=== PATIENT | female | born 1950 | race Caucasian/White ===

== ENCOUNTER → 2016-05-03 | Outpatient (CLI) | payer OTHER ==
[~2016-05-03] MED LIST: ALBU1AER9 INH; ASPI-232 PO; COEN100C11 PO; HYZ/50125 PO; SYN50 PO; VITA100C4 PO; VTMD1000 PO
--- NOTE | 2016-05-04 08:01 | MAMMOGRAPHY REPORT ---
BILATERAL DIGITAL SCREENING MAMMOGRAM TOMOSYNTHESIS WITH CAD: 05/03/2016 CLINICAL HISTORY: Routine screening examination. TECHNIQUE: Bilateral breast tomosynthesis in addition to standard 2D mammography was performed. Curr ent study was also evaluated with a Computer Aided Detection (CAD) system. COMPARISON: Comparison is made to exams dated: 05/01/2015 mammogram, 04/29/2014 mammogram, 04/11/2012 ma mmogram, and 10/27/2010 mammogram - [facility]. BREAST COMPOSITION: There are scattered areas of fibroglandular density in both breasts. FINDINGS: There is focal architectural distortion in the upper outer anterior left breast. Review of the electronic medical record at our institution does not demonstrate record of prior left breast surgery. No linear scar marker overlies the left breast to suggest previous surgery. Further eval uation with targeted ultrasound and possible additional mammographic views is recommended. There is a possible cluster of microcalcifications in the lateral right breast, best seen on the CC view, fo r which additional spot magnification views are recommended. No other suspicious mass, architectural distortion or cluster of microcalcifications is seen bilater ally. IMPRESSION: ACR BI-RADS CATEGORY 0: INCOMPLETE EVALUATION: NEED ADDITIONAL IMAGING EVALUATION The left lateral architectural distortion and possible clustered microcalcifications in the right la teral breast need additional imaging evaluation. The patient will be called to schedule an appointment. Approximately 10% of breast cancers are not detected with mammography. A negative mammographic repor t should not delay biopsy if a clinically suggestive mass is present. Renetta Sousa M.D. ay/:05/03/2016 17:05:37 Awning Finisher: Swathi RENEE(Carole)(Mery), [facility] letter sent: Addl Imaging 0 BI-RADS Code: ACR BI-RADS Category 0: Incomplete Evaluation: Need Additional Imaging Evaluation
== END | disposition home or self-care (01) ==
LOC: C.MAMM 10:18
PROVIDERS: ATTEND Student in an Organized Health Care Education/Training Program
DX: Z12.31 Encounter for screening mammogram for malignant neoplasm of breast (principal); N64.89 Other specified disorders of breast

== ENCOUNTER → 2016-05-19 | Outpatient (CLI) | payer OTHER ==
--- NOTE | 2016-05-19 15:02 | MAMMOGRAPHY REPORT ---
UNILATERAL RIGHT DIGITAL DIAGNOSTIC MAMMOGRAM AND TARGETED LEFT ULTRASOUND: 05/19/2016 CLINICAL HISTORY: 65-year-old woman called back from screening mammography for possible grouped micr ocalcifications in the right upper outer quadrant, and left lateral architectural distortion. After further discussion with the patient, she reports 2 prior surgeries within the left breast. Skin sc ars are evident in the 9:00 periareolar left breast, and also in the 1:00 to 2:[address] TECHNIQUE: Spot magnification right CC and ML views were obtained. COMPARISON: Comparison is made to exams dated: 05/03/2016 mammogram, 05/01/2015 mammogram, 04/29/2014 neo mogram, 04/11/2012 mammogram, 10/27/2010 mammogram, and 04/29/2009 mammogram - [facility]. BREAST COMPOSITION: There are scattered areas of fibroglandular density in the right breast. FINDINGS: There are 2 round microcalcifications in the approximate 9:00 middle one third of the righ t breast, 7 cm from the nipple. There are possibly a few additional very faint punctate microcalcif ications near those 2 round microcalcifications. No obvious associated mass or architectural distor tion. When comparing back to prior full-field mammograms, at least one of these microcalcifications has been present back to 2010 and 2 were likely present back to 2012. They most likely represent b enign fibrocystic changes, however, a short interval follow-up diagnostic mammogram is recommended t o ensure stability in 6 months. After discussion with the patient and learning that she has had 2 prior surgeries within the left br east, additional targeted ultrasound was performed along the scar in the 1:00 left breast, 2 cm from the nipple, which was thought to correlate well with the architectural distortion seen mammographic ally. There is linear hypoechoic tissue in the 1 to 2:00 left breast, 2 cm from the nipple, deep to the surgical scar likely representing the distortion seen mammographically. IMPRESSION: ACR-BI-RADS CATEGORY 3: PROBABLY BENIGN, TARGETED ULTRASOUND ACR-BI-RADS CATEGORY 3: UT OBABLY BENIGN 1. The architectural distortion in the lateral left breast is postsurgical in nature, given that a skin scar is evident in the 1:00 to 2:00 axis of the left breast. No further follow-up is needed at this time. 2. There are approximately 2 round microcalcifications and possibly a few smaller faint punctate mi crocalcifications within a 5 mm grouping in the 9:00 middle to posterior right breast. Some of thes e microcalcifications were present dating back to 2012 and the may represent benign fibrocystic anguiano ges. However, a short interval follow-up right diagnostic mammogram including spot magnification vi ews is made to ensure stability in 6 months. These results and recommendations were discussed with the patient at the time of the exam. She tent atively scheduled a follow-up appointment prior to leaving our department. Approximately 10% of breast cancers are not detected with mammography. A negative mammographic repor t should not delay biopsy if a clinically suggestive mass is present. Renetta Sousa M.D. ay/:05/19/2016 14:53:46 Outside Collector: Ericka RENEE(R)(M), [facility] letter sent: Follow Up Recommended 3 BI-RADS Code: ACR-BI-RADS Category 3: Probably Benign Ultrasound BI-RADS: ACR-BI-RADS Category 3: P robably Benign
--- NOTE | 2016-05-25 13:55 | CODING QUERY NO DIAGNOSIS ---
TREATMENT RENDERED WITHOUT A DIAGNOSIS Dr. Torres, To promote full compliance with coding requirements relating to patient care, physician participation is requested in all cases of show host or hostess uncertainty. Please assist us with providing a diagnosis/symptom for the test(s) below: A diagnosis/symptom was not documented on your Order. A valid diagnosis/symptom is required to bill all insurances. Please remember that we are unable to code a diagnosis of rule out, probable, possible, questionable, or suspected. Tests that require a diagnosis: * UNI RT CALL BACK TOMOSYNTHESIS DIAGNOSIS: * DIAG RT CALL BACK W/O CAD DIAGNOSIS: * ULTRASOUND BREAST LIMITED DIAGNOSIS: DATE OF SERVICE: 05/19/16 Provider Signature: Date: Thank you [facility] Information Management Once completed, please kindly fax back to [phone] For questions please call [phone]
== END | disposition home or self-care (01) ==
LOC: C.MAMM 12:18
PROVIDERS: ATTEND Student in an Organized Health Care Education/Training Program
DX: R92.8 Other abnormal and inconclusive findings on diagnostic imaging of breast (principal); L90.5 Scar conditions and fibrosis of skin; R92.0 Mammographic microcalcification found on diagnostic imaging of breast; N64.89 Other specified disorders of breast

== ENCOUNTER → 2016-11-19 | Outpatient (CLI) | payer OTHER ==
--- NOTE | 2016-11-19 12:44 | MAMMOGRAPHY REPORT ---
UNILATERAL RIGHT DIGITAL DIAGNOSTIC MAMMOGRAM TOMOSYNTHESIS WITH CAD: 11/19/2016 CLINICAL HISTORY: 6 Month Follow-up Right. TECHNIQUE: Breast tomosynthesis in addition to standard 2D mammography was performed. Current study was also evaluated with a Computer Aided Detection (CAD) system. Right CC and MLO 2-D and tomosynthe sis images and spot magnification right cc and ML views were obtained. COMPARISON: Comparison is made to exams dated: 05/19/2016 mammogram, 05/19/2016 ultrasound, 05/03/2016 m ammogram, 05/01/2015 mammogram, 04/29/2014 mammogram, and 04/26/2013 mammogram - [facility]. BREAST COMPOSITION: There are scattered areas of fibroglandular density in the right breast. FINDINGS: Spot magnification views of the right breast demonstrate a small 5 mm group of faint puncta te calcifications in the right lateral breast at approximately 9:00. The calcifications are stable o n spot magnification views dated 05/19/2016. The calcifications are likely also stable dating back to the 2014 and 2013 exam although it is difficult to make an accurate comparison due to differences in mammographic technique. Given the probable long-term stability, the calcifications are probably sakina ign. The remainder of the right breast is stable compared to prior exams, without suspicious masses, calcifications, or areas of architectural distortion noted. IMPRESSION: ACR-BI-RADS CATEGORY 3: PROBABLY BENIGN Grouped calcifications in the right 9:00 breast are likely stable dating back to the 2013 exam and ar e therefore probably benign. Recommend bilateral diagnostic tomosynthesis mammograms in 6 months, to confirm one-year stability of the calcifications on spot magnification views and for routine mammogr aphy of the left breast. The patient has been verbally notified of the results. Approximately 10% of breast cancers are not detected with mammography. A negative mammographic report should not delay biopsy if a clinically suggestive mass is present. Alicja Talbot M.D. /:11/19/2016 11:07:48 Mixing Picker Tender: Renata RENEE(Carole)(M), [facility] letter sent: Follow Up Recommended 3 BI-RADS Code: ACR-BI-RADS Category 3: Probably Benign
== END | disposition home or self-care (01) ==
LOC: C.MAMM 10:41
PROVIDERS: ATTEND Student in an Organized Health Care Education/Training Program
DX: R92.1 Mammographic calcification found on diagnostic imaging of breast (principal)

== ENCOUNTER → 2017-05-25 | Outpatient (CLI) | payer OTHER ==
--- NOTE | 2017-05-26 07:51 | MAMMOGRAPHY REPORT ---
BILATERAL DIGITAL DIAGNOSTIC MAMMOGRAM TOMOSYNTHESIS WITH CAD: 05/25/2017 CLINICAL HISTORY: 66-year-old woman presents at time of annual exam and also close follow-up of a adrianna uping of microcalcifications in the lateral right breast. TECHNIQUE: Bilateral breast tomosynthesis in addition to standard 2D mammography was performed. Spot magnification right CC and MLO views were also obtained. Current study was also evaluated with a [employer] Aided Detection (CAD) system. COMPARISON: Comparison is made to exams dated: 11/19/2016 mammogram, 05/19/2016 mammogram, 05/19/2016 u ltrasound, 05/03/2016 mammogram, 04/29/2014 mammogram, and 04/26/2013 mammogram - [facility] nt. BREAST COMPOSITION: There are scattered areas of fibroglandular density in both breasts. FINDINGS: There is expected architectural distortion in the upper outer anterior left breast, and an area of prior surgery. There are a few benign-appearing calcifications in the left breast, but no n ew suspicious masses, calcifications, unexpected architectural distortion or asymmetries are identifi ed. The right breast glandular pattern is similar to prior mammograms. No new suspicious masses, asymmet david, areas of distortion or new calcifications are seen. The spot magnification views of the right breast demonstrate a small faint grouping of punctate and amorphous microcalcifications measuring ernesto roximately 5 mm in maximum dimension. Although the microcalcifications do not appear significantly c hanged dating back to spot magnification views from 05/19/2016, they may be minimally increased compar ing back to more remote prior mammograms dating back to 2012 and remain indeterminate. Definitive ch aracterization with a stereotactic guided biopsy is recommended. IMPRESSION: ACR BI-RADS CATEGORY 4: SUSPICIOUS 1. The 5 mm grouping of faint punctate and amorphous microcalcifications in the lateral approximate 8:00 right breast may be minimally increased comparing back to prior exams and remain indeterminate. Definitive characterization with a stereotactic guided biopsy is recommended. 2. Stable mammographic appearance of the left breast, without mammographic evidence of malignancy. Recommend follow-up in 1 year. These results and recommendations were discussed with the patient at the time of the exam. She tenta tively scheduled the right breast biopsy prior to leaving our department. Approximately 10% of breast cancers are not detected with mammography. A negative mammographic report should not delay biopsy if a clinically suggestive mass is present. Renetta Sousa M.D. ay/:05/25/2017 17:06:27 Frozen Yogurt Maker: Ericka Matthews, [facility] letter sent: Abnormal 4/5 BI-RADS Code: ACR BI-RADS Category 4: Suspicious
== END | disposition home or self-care (01) ==
LOC: C.MAMM 13:36
PROVIDERS: ATTEND Student in an Organized Health Care Education/Training Program
DX: R92.0 Mammographic microcalcification found on diagnostic imaging of breast (principal)

== ENCOUNTER → 2017-06-02 | Outpatient (CLI) | payer OTHER ==
--- NOTE | 2017-06-02 13:17 | Discharge Instructions ---
Discharge Instructions Procedure Procedure Date: Jun 02, 2017. Reason for visit: Right Calcs. Discharge Discharge Date: Jun 02, 2017. Discharge Diagnosis: status post breast biopsy Instructions Activity Recommendations: Additional Limitations (see below) Return to School/Work: no limitations Recommended Home Diet: No Limitations Provider Instructions: ACTIVITY RECOMMENDATIONS: * No lifting, pushing, pulling or exercising the affected side for three days. RETURN TO SCHOOL/WORK: * You may return to work/school after the procedure, but do not perform any strenuous activities for 24 to 48 hours. MEDICATIONS: * Tylenol (two 325 mg) every four to six hours if needed for mild pain (if not allergic to Tylenol). DIET: * Resume previous diet. SPECIAL CARE INSTRUCTIONS: * Keep biopsy site dry for 24 hours. May shower after 24 hours, but do not soak (bathe) incision. * May remove Tegaderm (plastic patch) tomorrow AFTER showering. * Leave the steri-strips on for one week. Allow the steri-strips to fall off by themselves. If not off after one week, you may remove them. You may place a Bandaid crosswise over the strips, if desired. * Apply ice 10 minutes on and 10 minutes off as needed. * Wear a bra at bedtime to sleep more comfortably for 2-3 days. * Your referring physician should have the results after approximately 5 to 7 business days. * Call for unusual bleeding, fever, drainage, etc or if you have any questions call during normal business hours or after hours call Dr Talbot, [phone]. FOLLOW UP VISIT: Follow-up with Referring Physician as scheduled. Allergies Coded Allergies: Lisinopril (Unverified Allergy, Mild, COUGH, 01/30/16) Nalini Michel Recommendations: Call your doctor if: * Temperature above 101 degrees * Pain not relieved by pain medicine ordered * There is increased drainage or redness from any incision * You have any unanswered questions or concerns. Your Doctors Instructions noted above were prepared by provider Alicja Talbot. Patient Signature Section: Patient Instructions Signature Page Neyda Bradykatina Patient (or Guardian) Signature/Date: I have read and understand the instructions given to me by my caregivers. Caregiver/RN/Doctor Signature/Date: The above-named patient and/or guardian has received patient instructions on this date. + Original Patient Signature Page (only) stays with chart. Please make copy for patient.
--- NOTE | 2017-06-02 14:43 | MAMMOGRAPHY REPORT ---
STEREOTACTIC GUIDED BIOPSY RIGHT BREAST: 06/02/2017 CLINICAL HISTORY: Indeterminate calcifications in the right lower outer quadrant. PATIENT CONSENT: The procedure, risks, benefits, and alternatives of stereotactic biopsy with clip pl acement were discussed with the patient, and verbal and written consent was obtained. A timeout was performed immediately prior to the procedure. PROCEDURE DESCRIPTION: With stereotactic guidance, aseptic technique, and lidocaine as a local anesth etic (1% lidocaine to anesthetize the skin and 1% lidocaine with epinephrine to anesthetize the deepe r tissues), the calcifications of concern in the right lower outer quadrant were sampled multiple nicole es with a 9-gauge vacuum-assisted biopsy needle ([employer]). The path of approach was caudocranial . The specimen radiograph demonstrates calcifications to be present in the samples. A metallic emani er clip was placed at the biopsy site. This was confirmed on postprocedure mammograms. Direct press ure was applied at the biopsy site and hemostasis was readily achieved. The patient tolerated the pr ocedure without complication. She was given wound care instructions. COMPARISON: Comparison is made to exams dated: 05/25/2017 mammogram, 11/19/2016 mammogram, 05/19/2016 u ltrasound, 05/03/2016 mammogram, 05/01/2015 mammogram, and 04/29/2014 mammogram - [facility]. IMPRESSION: STEREOTACTIC GUIDED BIOPSY Stereotactic biopsy of indeterminate calcifications in the right lower outer quadrant, with clip plac ement. The patient will receive pathology results from her referring provider. Alicja Talbot M.D. /:06/02/2017 13:18:56 Cell Assembly Pinner: Ericka RICO)(M), [facility]
--- NOTE | 2017-06-02 14:43 | MAMMOGRAPHY REPORT ---
UNILATERAL RIGHT DIGITAL DIAGNOSTIC MAMMOGRAM: 06/02/2017 CLINICAL HISTORY: Status post right breast stereotactic biopsy. TECHNIQUE: Postprocedural right CC and ML views were obtained. COMPARISON: Comparison is made to exams dated: 11/19/2016 mammogram, 05/25/2017 mammogram, 05/19/2016 u ltrasound, 05/19/2016 mammogram, 05/01/2015 mammogram, and 05/03/2016 mammogram - [facility] nter. BREAST COMPOSITION: There are scattered areas of fibroglandular density in the right breast. FINDINGS: A new biopsy marker clip is seen in the right breast at approximately 9:00 status post ster eotactic biopsy of right breast calcifications. No significant postbiopsy hematoma is seen. IMPRESSION: POST PROCEDURE IMAGING FOR MARKER PLACEMENT New biopsy marker clip status post right breast stereotactic biopsy. Pathology results are pending. Approximately 10% of breast cancers are not detected with mammography. A negative mammographic report should not delay biopsy if a clinically suggestive mass is present. Alicja Talbot M.D. ah/:06/02/2017 13:35:00 Showroom Executive Director: Ericka RENEE(R)(M), [facility] BI-RADS Code: Post Procedure Imaging For Marker Placement
== END | disposition home or self-care (01) ==
LOC: C.MAMM 12:30
PROVIDERS: ATTEND Student in an Organized Health Care Education/Training Program
DX: R92.0 Mammographic microcalcification found on diagnostic imaging of breast (principal)

== ENCOUNTER 2023-04-18 19:20 | Inpatient (IN) ==
[2023-04-18 20:00] LABS: Basophils # (auto) 0.06 K/uL (0.00-0.20); Basophils % (auto) 0.7 %; Eosinophils # (auto) 0.22 K/uL (0.00-0.50); Eosinophils % (auto) 2.6 %; Hematocrit (blood only) 43.9 % (37.0-47.0); Immature Granulocytes # (auto) 0.04 K/uL (0.01-0.20); Immature Granulocytes % (auto) 0.5 %; Lymphocytes % (auto) 32.7 %; Mean Corpuscular Hemoglobin 27.1 pg (25.0-34.0); Mean Corpuscular Hgb Conc 31.9 g/dL (32.0-36.0); Mean Corpuscular Volume 84.9 fL (80.0-100.0); Mean Platelet Volume 10.6 fL (9.4-12.4); Monocytes # (auto) 0.48 K/uL (0.11-0.59); Monocytes % (auto) 5.6 %; Neutrophils # (auto) 4.96 K/uL (1.40-6.50); Neutrophils % (auto) 57.9 %; Platelet Count 227 K/uL (130-400); RDW Coefficient of Variation 13.9 % (11.5-14.5); RDW Standard Deviation 43.2 fL (36.4-46.3); Red Blood Count 5.17 M/uL (4.20-5.40); White Blood Count 8.56 K/ul (4.8-10.8)
[2023-04-18 20:18] LABS: Albumin Globulin Ratio 1.3 (0.9-2); BUN Creatinine Ratio 17.6 (10-20); Bilirubin,Total 0.4 mg/dl (0.2-1.0); Calcium 9.8 mg/dl (8.6-10.3); Creatinine Clr Calc Pharmacy 68.1 ml/min; Est GFR (African American) 72.5 ml/min; Est GFR (Non-African American) 62.6 ml/min; Globulin 3.2 gm/dl (2.5-4.0); Magnesium 2.2 mg/dl (1.7-2.4); Potassium 3.7 mmol/L (3.5-5.1); Total Protein 7.2 gm/dl (6.0-8.3)
[2023-04-18 20:25] LABS: Troponin I High Sensitivity 11.7 pg/ml (0-14)
[2023-04-18 20:29] LABS: INR 0.9 (0.9-1.1); Partial Thromboplastin Time 28 Seconds (21-31); Prothrombin Time 10.3 Seconds (9.0-12.0)
[2023-04-18 21:32] LABS: D Dimer 650 ug/L FEU (0-500)
[2023-04-18] MEDS: OPTIRAY 320 125ml IV ONE (22:35)
--- NOTE | 2023-04-18 23:52 | Emergency Department Note ---
History of Present Illness General Chief Complaint: Cardiac Assessment Stated Complaint: CARDIAC ASSESSMENT Time Seen by Provider: 04/18/23 19:30 History of Present Illness Provider Complaint: + palpitations Time: 16:00 Duration: + Now resolved Context: + occurred during rest Arrhythmia history: + atrial fibrillation; no on anti-coagulants Associated symptoms: + chest pain; no shortness of breath, no syncope, no near- syncope, no nausea, no vomiting, no anxiety, no diaphoresis or no cough Treatments prior to arrival: + calcium channel jagdish (Cardizem bolus per EMS) Home Medications Medication Instructions Recorded Confirmed Type ASPIRIN (ASPIR-81) 1 tab PO HS ##0 10/12/13 06/19/21 History Albuterol (Proair Hfa) 2 puff inhalation QID PRN W ##0 10/12/13 06/19/21 History Cholecalciferol (Vitamin D3) 1,000 intunit PO Q2D ##0 10/12/13 06/19/21 History Hctz/Losartan (Hyzaar 12.5MG/50MG) 1 tab PO DAILY #0 tabs 10/12/13 06/19/21 History Levothyroxine Sodium (Synthroid) 1 tab PO Q2D ##0 10/12/13 06/19/21 History COENZYME Q10 (UBIDECARENONE) 100 mg PO DAILY ##0 10/05/15 06/19/21 History (COQ-10) Tocopheryl Acet,Dl-Alpha (Vitamin 100 inter.unit PO Q2D ##0 10/05/15 06/19/21 History E) Allergies Allergy/AdvReac Type Severity Reaction Status Date / Time lisinopril Allergy Mild COUGH Unverified 06/19/21 09:21 Past Med/Surg History Medical History (Updated 04/19/23 @ 00:04 by Spenser Wiseman MD) Asthma Hypertension Surgical History (Updated 04/18/23 @ 23:50 by Spenser Wiseman MD) H/O: hysterectomy Social History Smoking Status: Former smoker Preferred Language: Syriac Feels Safe at Home: Yes Physical Exam 2 Vital Signs: Vital Signs - 24 hr 04/18/23 19:24 04/18/23 19:33 04/18/23 19:45 Temperature 36.8 C Temperature Source Oral Pulse Rate 69 62 Pulse Rate [Radial ] Pulse Rhythm [Radi al] Pulse Strength [Ra dial] Respiratory Rate 15 Respiratory Effort / Characteristics Non-Labored Sponta neous Respiratory Depth Normal Respiratory Patter n Regular Blood Pressure 194/99 H Blood Pressure [Le ft Arm] Blood Pressure Hansa n 130 Blood Pressure Hansa n [Left Arm] Pulse Oximetry 95 94 Oxygen Delivery Me thod Room Air Room Air Sepsis Recent Feve r Within 48 Hours No Sepsis New/Unexpla ined Change in Men enrike Status N/A Sepsis Action Take n by Nursing No Action Required 04/18/23 21:11 04/18/23 23:00 04/18/23 23:25 Temperature Temperature Source Pulse Rate 48 L Pulse Rate [Radial ] 58 L 47 L Pulse Rhythm [Radi al] Regular Pulse Strength [Ra dial] Normal Respiratory Rate 18 18 Respiratory Effort / Characteristics Non-Labored Sponta neous Non-Labored Respiratory Depth Normal Normal Respiratory Patter n Regular Regular Blood Pressure Blood Pressure [Le ft Arm] 124/69 153/72 H Blood Pressure Hansa n Blood Pressure Hansa n [Left Arm] 87 99 Pulse Oximetry 96 96 Oxygen Delivery Me thod Room Air Room Air Sepsis Recent Feve r Within 48 Hours Sepsis New/Unexpla ined Change in Men enrike Status Sepsis Action Take n by Nursing Physical Exam: Physical Exam GENERAL: oriented to person, place, and time. appears well-developed and well- nourished. HENT: Exam performed. - Head: Normocephalic and atraumatic. EYES: Conjunctivae and EOM are normal. Right eye exhibits no discharge. Left eye exhibits no discharge. No scleral icterus. NECK: Normal range of motion. Neck supple. No JVD present. CV: Normal rate, regular rhythm, normal heart sounds and intact distal pulses. There is no peripheral edema. Palpable radial pulses bue. PULM/CHEST: Effort normal and breath sounds normal. No respiratory distress. No stridor. no wheezes. no rales. ABD: The abdomen is soft. There is no tenderness. NEURO: Motor and sensation grossly intact. SKIN: Skin is warm and dry. He is not diaphoretic. PSYCH: normal mood and affect. Behavior is normal. Judgment and thought content normal. Course Course 1851: Received a call from EMS. EMS reported that the patient was having palpitations. EKG done by EMS showed a possible SVT versus atrial fibrillation. EMS reported that the patient does have a history of atrial fibrillation. Cardizem 20 mg ordered for the patient. After Cardizem was given the patient went into normal sinus rhythm. 1930: The patient was evaluated in room B12A. A complete history and physical exam was performed Cardiac monitoring: An order was placed for continuous cardiac monitoring. The monitor shows a rate of 60 with sinus rhythm interpreted by mn 0001: Vital signs stable. Patient remains in sinus rhythm throughout her emergency department stay. Patient reports no chest pain or difficulty breathing since she received Cardizem by EMS. Family is at bedside now and confirmed that the patient does not have a history of atrial fibrillation however she has a family history of atrial fibrillation, specifically her brother having atrial fibrillation. Patient's D-dimer elevated, CTA of the chest negative for PE patient's initial high-sensitivity troponin was negative but delta troponin was more than doubled at 29.1. Patient will be admitted to the [facility] for further workup for arrhythmia. Administered Medications Discontinued Medications Ioversol (Optiray 320 125ml) 117 ml IV ONCE ONE Stop: 04/18/23 22:36 Last Admin: 04/18/23 22:35 Dose: 117 ml Documented By: [facility] Medical Decision Making Laboratory Data Attestation: I reviewed the patient's lab results. 04/18/23 19:32 04/18/23 19:35 Lab Results 04/18/23 04/18/23 04/18/23 Range/Units 19:32 19:35 22:40 WBC 8.56 (4.8-10.8) K/ul RBC 5.17 (4.20-5.40) M/uL Hgb 14.0 (12.0-16.0) g/dl Hct 43.9 (37.0-47.0) % MCV 84.9 (80.0-100.0) fL MCH 27.1 (25.0-34.0) pg MCHC 31.9 L (32.0-36.0) g/dL RDW Std Deviation 43.2 (36.4-46.3) fL RDW Coeff of Nidia 13.9 (11.5-14.5) % Plt Count 227 (130-400) K/uL MPV 10.6 (9.4-12.4) fL Immature Gran % (Auto) 0.5 % Neut % (Auto) 57.9 % Lymph % (Auto) 32.7 % [place] % (Auto) 5.6 % Eos % (Auto) 2.6 % Baso % (Auto) 0.7 % Neut # (Auto) 4.96 (1.40-6.50) K/uL Lymph # (Auto) 2.80 (1.20-3.40) K/uL [place] # (Auto) 0.48 (0.11-0.59) K/uL Eos # (Auto) 0.22 (0.00-0.50) K/uL Baso # (Auto) 0.06 (0.00-0.20) K/uL Immature Gran # (Auto) 0.04 (0.01-0.20) K/uL PT 10.3 (9.0-12.0) Seconds INR 0.9 (0.9-1.1) APTT 28 (21-31) Seconds PTT Ratio 1.0 D-Dimer 650 H* (0-500) ug/L FEU Sodium 140 (136-145) mmol/L Potassium 3.7 (3.5-5.1) mmol/L Chloride 105 (98-107) mmol/L Carbon Dioxide 28 (21-32) mmol/L Anion Gap 7 (3-11) BUN 16 (6-23) mg/dl Creatinine 0.91 (0.6-1.2) mg/dl Est Cr Clr Drug Dosing 68.1 ml/min Est GFR ( Amer) 72.5 ml/min Est GFR (Non-Af Amer) 62.6 ml/min BUN/Creatinine Ratio 17.6 (10-20) Glucose 132 H (70-99(Fasting)) mg/dl Calcium 9.8 (8.6-10.3) mg/dl Magnesium 2.2 (1.7-2.4) mg/dl Total Bilirubin 0.4 (0.2-1.0) mg/dl AST 20 (13-39) U/L ALT 15 (7-52) U/L Alkaline Phosphatase 91 (34-104) U/L Troponin I High Sens 11.7 29.1 H D (0-14) pg/ml Total Protein 7.2 (6.0-8.3) gm/dl Albumin 4.0 (3.4-5.0) gm/dl Globulin 3.2 (2.5-4.0) gm/dl Albumin/Globulin Ratio 1.3 (0.9-2) Imaging Data Attestation: I personally reviewed and interpreted this imaging study as follows: My Impression: Chest x-ray negative. Airway clear. No pneumothorax. No consolidation. No cardiomegaly or cephalization.. No free air under the diaphragm. No fractures of the skeletal structures. Radiologist's Impression: Chest CTA 04/18/23 21:42 Exam(s): CTA CHEST IV Amt: 117 cc opti 320 EXAM: CT Angiography Chest With Intravenous Contrast CLINICAL HISTORY: Reason for exam: ro PE. TECHNIQUE: Axial computed tomographic angiography images of the chest with intravenous contrast. CTDI is 25.55 mGy and DLP is 917.33 mGy-cm. Automated exposure control was utilized for the study. A dose lowering technique was utilized adhering to the principles of ALARA. MIP reconstructed images were created and reviewed. COMPARISON: 01/30/16. FINDINGS: Pulmonary arteries: Unremarkable. No pulmonary embolism. Normal enhancement of the pulmonary arteries. Aorta: Atherosclerotic disease of aorta with no aneurysm or dissection. Lungs: Mild bilateral lower lobe atelectasis. Scattered areas of mosaic pattern which may indicate small airway disease. No focal consolidation to suggest pneumonia. Pleural space: Unremarkable. No significant effusion. No pneumothorax. Heart: Mild cardiomegaly with coronary artery calcifications. No significant pericardial effusion. No evidence of RV dysfunction. Bones/joints: No acute fracture. No dislocation. Soft tissues: Unremarkable. Lymph nodes: Unremarkable. No enlarged lymph nodes. Other findings: Multilevel degenerative disease of the spine. Upper abdomen is unremarkable. IMPRESSION: 1. No pulmonary embolus or aortic dissection. 2. Mild bilateral lower lobe atelectasis with possible underlying small airway disease. 3. No focal infiltrate, pleural effusion or pneumothorax. Electronically signed by: Adelia Hung MD 04/18/23 23:55 PM ECG Data Attestation: I personally reviewed and interpreted this ECG as follows: Indication: palpitations Rate (beats per minute): 65 Rhythm: normal sinus Findings: + 1st degree AV block; no ST depression, no ST elevation or no prolonged QT MDM Narrative 1852: Received a call from EMS. EMS reported that the patient was having palpitations. EKG done by EMS showed a possible SVT versus atrial fibrillation. EMS reported that the patient does have a history of atrial fibrillation. Cardizem 20 mg ordered for the patient. After Cardizem was given the patient went into normal sinus rhythm. 1930: The patient was evaluated in room B12A. A complete history and physical exam was performed Cardiac monitoring: An order was placed for continuous cardiac monitoring. The monitor shows a rate of 60 with sinus rhythm interpreted by me 0001: Vital signs stable. Patient remains in sinus rhythm throughout her emergency department stay. Patient reports no chest pain or difficulty breathing since she received Cardizem by EMS. Family is at bedside now and confirmed that the patient does not have a history of atrial fibrillation however she has a family history of atrial fibrillation, specifically her brother having atrial fibrillation. Patient's D-dimer elevated, CTA of the chest negative for PE patient's initial high-sensitivity troponin was negative but delta troponin was more than doubled at 29.1. Patient will be admitted to the [facility] for further workup for arrhythmia. Impression & Plan Elevated troponin, Tachyarrhythmia Discharge Plan Visit Data Chief Complaint: Cardiac Assessment Stated Complaint: CARDIAC ASSESSMENT ED Provider: Spenser Wiseman Discharge Problem: Elevated troponin, Tachyarrhythmia Patient Disposition: Admitted As Inpatient Forms Stand Alone Forms: [facility] Prescriptions Prescriptions: No Action ASPIRIN (ASPIR-81) 81 MG tablet 1 tab PO HS Qty: 0 Albuterol (Proair Hfa) AEROSOL,SOLN 2 puff Inhalation QID PRN (Reason: W) Qty: 0 Cholecalciferol (Vitamin D3) 1,000 INTER.UNIT tablet 1,000 intunit PO Q2D Qty: 0 Hctz/Losartan (Hyzaar 12.5MG/50MG) tablet 1 tab PO DAILY Qty: 0 Levothyroxine Sodium (Synthroid) 50 MCG tablet 1 tab PO Q2D Qty: 0 COENZYME Q10 (UBIDECARENONE) (COQ-10) 100 MG capsule 100 mg PO DAILY Qty: 0 Tocopheryl Acet,Dl-Alpha (Vitamin E) 100 INTER.UNIT capsule 100 inter.unit PO Q2D Qty: 0 Referrals Referrals: Gayle Torres DO [Primary Care Provider] -
--- NOTE | 2023-04-18 23:56 | CT Scan Report ---
Exam(s): CTA CHEST IV Amt: 117 cc opti 320 EXAM: CT Angiography Chest With Intravenous Contrast CLINICAL HISTORY: Reason for exam: ro PE. TECHNIQUE: Axial computed tomographic angiography images of the chest with intravenous contrast. CTDI is 25.55 mGy and DLP is 917.33 mGy-cm. Automated exposure control was utilized for the study. A dose lowering technique was utilized adhering to the principles of ALARA. MIP reconstructed images were created and reviewed. COMPARISON: 01/30/16. FINDINGS: Pulmonary arteries: Unremarkable. No pulmonary embolism. Normal enhancement of the pulmonary arteries. Aorta: Atherosclerotic disease of aorta with no aneurysm or dissection. Lungs: Mild bilateral lower lobe atelectasis. Scattered areas of mosaic pattern which may indicate small airway disease. No focal consolidation to suggest pneumonia. Pleural space: Unremarkable. No significant effusion. No pneumothorax. Heart: Mild cardiomegaly with coronary artery calcifications. No significant pericardial effusion. No evidence of RV dysfunction. Bones/joints: No acute fracture. No dislocation. Soft tissues: Unremarkable. Lymph nodes: Unremarkable. No enlarged lymph nodes. Other findings: Multilevel degenerative disease of the spine. Upper abdomen is unremarkable. IMPRESSION: 1. No pulmonary embolus or aortic dissection. 2. Mild bilateral lower lobe atelectasis with possible underlying small airway disease. 3. No focal infiltrate, pleural effusion or pneumothorax. Electronically signed by: Adelia Hung MD 04/18/23 23:55 PM
--- NOTE | 2023-04-19 02:05 | History & Physical Report ---
Date of Service April 19, 2023 Assessment & Plan (1) Tachyarrhythmia: Plan: 72-year-old female with past medical history significant for hyperlipidemia, hypothyroidism, obstructive sleep apnea, hypertension, atherosclerosis of bilateral legs, paroxysmal atrial tachycardia, obesity, osteoporosis, 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 Patient states she was not feeling well today and had some palpitations. When EMS arrived EKG showed heart rate of 178 possible SVTs. Initially thought that she had history of A-fib and IV Cardizem was given which converted to regular rhythm. Currently resting comfortably and hemodynamically stable. Patient has mild dementia but was able to give a history. Can tell her name. Knows that she in the hospital. Could tell her date of . Could tell month and year. Not precise with exact dates. Called but not able to reach him. Earlier daughter was in the ER and seems she told the Er that patient does not have A-fib. Patient denies any headache. No blurred visions. No earache or runny nose. No sore throat. No cough. No fevers. Denies any chest pain or shortness of breath. No nausea. No abdominal pain. Normal bowel and bladder movements. Ambulates okay without support as per patient. Currently resting comfortably and hemodynamically stable. Tachyarrhythmia History of paroxysmal atrial tachycardia Possible SVT/A-fib Converted to sinus rhythm with IV Cardizem Hemodynamic stable Asymptomatic Will monitor in the telemetry IV Lopressor as needed N.p.o. Consult cardiology in a.m. for further recommendations Mildly elevated troponin Mostly demand ischemia We will follow serial enzymes and echo Telemetry Cardiology consulted Elevated D-dimer CT chest no PE History of hypothyroidism On Synthyroid We will follow TSH. Mild Alzheimer's dementia without behavioral disturbance On donezepil and Namenda We will monitor for delirium Obstructive sleep apnea Not on oxygen or CPAP as per patient States she is doing fine Hypertension On losartan, hydrochlorothiazide We will monitor Hyperlipidemia On statin Peripheral vascular disease On statin and aspirin DVT prophylaxis Lovenox Disposition Telemetry Full code History of Present Illness Chief Complaint: Palpitations Primary Care Provider: Gayle Torres DO 72-year-old female with past medical history significant for hyperlipidemia, hypothyroidism, obstructive sleep apnea, hypertension, atherosclerosis of bilateral legs, paroxysmal atrial tachycardia, obesity, osteoporosis, 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 Patient states she was not feeling well today and had some palpitations. When EMS arrived EKG showed heart rate of 178 possible SVTs. Initially thought that she had history of A-fib and IV Cardizem was given which converted to regular rhythm. Currently resting comfortably and hemodynamically stable. Patient has mild dementia but was able to give a history. Can tell her name. Knows that she in the hospital. Could tell her date of . Could tell month and year. Not precise with exact dates. Called but not able to reach him. Earlier daughter was in the ER and seems she told the Er that patient does not have A-fib. Patient denies any headache. No blurred visions. No earache or runny nose. No sore throat. No cough. No fevers. Denies any chest pain or shortness of breath. No nausea. No abdominal pain. Normal bowel and bladder movements. Ambulates okay without support as per patient. Currently resting comfortably and hemodynamically stable. Past medical history. As mentioned above Past surgical history. Left chest lumpectomy, benign cyst. Colonoscopy. EGD. Partial hysterectomy. Social history. . Quit smoking 1981. Smoked 1 pack a day for 12 years. Alcohol rarely. No drug use. Family history. Father had stomach cancer. Mother had colon cancer. Daughter had benign brain tumor. Allergies Allergy/AdvReac Type Severity Reaction Status Date / Time lisinopril Allergy Mild COUGH Unverified 06/19/21 09:21 Home Medications Medication Instructions Recorded Confirmed Type acetaminophen 500 mg tablet 500 mg PO Q6H PRN Pain 04/19/23 04/19/23 History (Tylenol Extra Strength) ascorbic acid (vitamin C) 1,000 mg 1 g PO QAM 04/19/23 04/19/23 History tablet (Vitamin C) aspirin 81 mg tablet,delayed 81 mg PO QAM 04/19/23 04/19/23 History release atorvastatin 20 mg tablet 20 mg PO PM 04/19/23 04/19/23 History cholecalciferol (vitamin D3) 50 50 mcg PO QAM 04/19/23 04/19/23 History mcg (2,000 unit) tablet (Vitamin D3) coenzyme Q10 100 mg capsule (Co 100 mg PO QAM 04/19/23 04/19/23 History Q-10) docusate sodium 100 mg capsule 100 mg PO QPM 04/19/23 04/19/23 History (Colace) donepezil 10 mg tablet 10 mg PO QDL 04/19/23 04/19/23 History hydrochlorothiazide 12.5 mg tablet 12.5 mg PO QAM 04/19/23 04/19/23 History levothyroxine 50 mcg tablet 50 mcg PO DAILYBB 04/19/23 04/19/23 History losartan 50 mg tablet 50 mg PO QAM 04/19/23 04/19/23 History magnesium oxide 400 mg PO QPM 04/19/23 04/19/23 History memantine 10 mg tablet 10 mg PO AMPM 04/19/23 04/19/23 History [id number] 8 mg-folic 400 1 tab PO QDL 04/19/23 04/19/23 History mcg-K 50 mcg-lutein 300 mcg tablet (Centrum Silver Women) vitamin E 268 mg (400 unit) capsule 268 mg PO QPM 04/19/23 04/19/23 History Past Med/Surg History Medical History (Updated 04/19/23 @ 07:32 by ELSIE Alejandre) Asthma Hypertension Surgical History (Updated 04/18/23 @ 23:50 by Spenser Wiseman MD) H/O: hysterectomy Social History Smoking Status: Former smoker Tobacco Type: Cigarettes Preferred Language: Qatari Communication Ability: Effective Door Operator Required: No Beliefs That Will Affect Care: None Feels Safe at Home: Yes Review of Systems Review of Systems: All systems reviewed & are unremarkable except as noted in HPI & below Physical Exam Constitutional: General- Not in distress Head- atraumatic Eyes- PERRL. ENT- oropharynx clear Neck- supple, no JVD. Lungs- clear to auscultation no wheezing or crackles. Heart- regular rhythm; no murmur, no gallop. Abdomen- normal bowel sounds, soft, nontender, no distension. Extremities- no pretibial edema, no erythema seen. Neuro- alert, oriented x 3; PERRL, no facial palsy; no dysarthria; moves extremities Skin- warm & dry Results & Data Results & Data Vital Signs (Past 12 Hours) Vital Signs Temp Pulse Pulse Resp BP BP Pulse Ox 04/19/23 01:00 52 L 18 145/78 H 91 04/18/23 23:25 48 L 04/18/23 23:00 47 L 18 153/72 H 96 04/18/23 21:11 58 L 18 124/69 96 04/18/23 19:45 94 04/18/23 19:33 62 04/18/23 19:24 36.8 C 69 15 194/99 H 95 O2 Del Method 04/19/23 01:00 Room Air 04/18/23 23:25 04/18/23 23:00 Room Air 04/18/23 21:11 Room Air 04/18/23 19:45 Room Air 04/18/23 19:33 04/18/23 19:24 Room Air Diagnostic Findings Laboratory Results WBC 8.56 K/ul (4.8-10.8) 04/18/23 19:32 RBC 5.17 M/uL (4.20-5.40) 04/18/23 19:32 Hgb 14.0 g/dl (12.0-16.0) 04/18/23 19:32 Hct 43.9 % (37.0-47.0) 04/18/23 19:32 MCV 84.9 fL (80.0-100.0) 04/18/23 19:32 MCH 27.1 pg (25.0-34.0) 04/18/23 19:32 MCHC 31.9 g/dL (32.0-36.0) L 04/18/23 19:32 RDW Std Deviation 43.2 fL (36.4-46.3) 04/18/23 19:32 RDW Coeff of Nidia 13.9 % (11.5-14.5) 04/18/23 19:32 Plt Count 227 K/uL (130-400) 04/18/23 19:32 MPV 10.6 fL (9.4-12.4) 04/18/23 19:32 Immature Gran % (Auto) 0.5 % 04/18/23 19:32 Neut % (Auto) 57.9 % 04/18/23 19:32 Lymph % (Auto) 32.7 % 04/18/23 19:32 [place] % (Auto) 5.6 % 04/18/23 19:32 Eos % (Auto) 2.6 % 04/18/23 19:32 Baso % (Auto) 0.7 % 04/18/23:32 Neut # (Auto) 4.96 K/uL (1.40-6.50) 04/18/23 19:32 Lymph # (Auto) 2.80 K/uL (1.20-3.40) 04/18/23:32 [place] # (Auto) 0.48 K/uL (0.11-0.59) 04/18/23 19:32 Eos # (Auto) 0.22 K/uL (0.00-0.50) 04/18/23: Baso # (Auto) 0.06 K/uL (0.00-0.20) 04/18/23: Immature Gran # (Auto) 0.04 K/uL (0.01-0.20) 04/18/23:32 PT 10.3 Seconds (9.0-12.0) 04/18/23:32 INR 0.9 (0.9-1.1) 04/18/23 19:32 APTT 28 Seconds (21-31) 04/18/23:32 PTT Ratio 1.0 04/18/23 19:32 D-Dimer 650 ug/L FEU (0-500) H* 04/18/23 19:32 Sodium 140 mmol/L (136-145) 04/18/23 19:35 Potassium 3.7 mmol/L (3.5-5.1) 04/18/23 19:35 Chloride 105 mmol/L (98-107) 04/18/23 19:35 Carbon Dioxide 28 mmol/L (21-32) 04/18/23 19:35 Anion Gap 7 (3-11) 04/18/23 19:35 BUN 16 mg/dl (6-23) 04/18/23 19:35 Creatinine 0.91 mg/dl (0.6-1.2) 04/18/23 19:35 Est Cr Clr Drug Dosing 68.1 ml/min 04/18/23 19:35 Est GFR ( Amer) 72.5 ml/min 04/18/23 19:35 Est GFR (Non-Af Amer) 62.6 ml/min 04/18/23 19:35 BUN/Creatinine Ratio 17.6 (10-20) 04/18/23 19:35 Glucose 132 mg/dl (70-99(Fasting)) H 04/18/23 19:35 Calcium 9.8 mg/dl (8.6-10.3) 04/18/23 19:35 Magnesium 2.2 mg/dl (1.7-2.4) 04/18/23 19:35 Total Bilirubin 0.4 mg/dl (0.2-1.0) 04/18/23 19:35 AST 20 U/L (13-39) 04/18/23 19:35 ALT 15 U/L (7-52) 04/18/23 19:35 Alkaline Phosphatase 91 U/L (34-104) 04/18/23 19:35 Troponin I High Sens 29.1 pg/ml (0-14) H D 04/18/23 22:40 Total Protein 7.2 gm/dl (6.0-8.3) 04/18/23 19:35 Albumin 4.0 gm/dl (3.4-5.0) 04/18/23 19:35 Globulin 3.2 gm/dl (2.5-4.0) 04/18/23 19:35 Albumin/Globulin Ratio 1.3 (0.9-2) 04/18/23 19:35 Impressions Chest CTA 04/18/23 21:42 Exam(s): CTA CHEST IV Amt: 117 cc opti 320 EXAM: CT Angiography Chest With Intravenous Contrast CLINICAL HISTORY: Reason for exam: ro PE. TECHNIQUE: Axial computed tomographic angiography images of the chest with intravenous contrast. CTDI is 25.55 mGy and DLP is 917.33 mGy-cm. Automated exposure control was utilized for the study. A dose lowering technique was utilized adhering to the principles of ALARA. MIP reconstructed images were created and reviewed. COMPARISON: 01/30/16. FINDINGS: Pulmonary arteries: Unremarkable. No pulmonary embolism. Normal enhancement of the pulmonary arteries. Aorta: Atherosclerotic disease of aorta with no aneurysm or dissection. Lungs: Mild bilateral lower lobe atelectasis. Scattered areas of mosaic pattern which may indicate small airway disease. No focal consolidation to suggest pneumonia. Pleural space: Unremarkable. No significant effusion. No pneumothorax. Heart: Mild cardiomegaly with coronary artery calcifications. No significant pericardial effusion. No evidence of RV dysfunction. Bones/joints: No acute fracture. No dislocation. Soft tissues: Unremarkable. Lymph nodes: Unremarkable. No enlarged lymph nodes. Other findings: Multilevel degenerative disease of the spine. Upper abdomen is unremarkable. IMPRESSION: 1. No pulmonary embolus or aortic dissection. 2. Mild bilateral lower lobe atelectasis with possible underlying small airway disease. 3. No focal infiltrate, pleural effusion or pneumothorax. Electronically signed by: Adelia Hung MD 04/18/23 23:55 PM ECG Additional Comments: ECG. Sinus rhythm with first-degree AV block at a rate of 65. Left anterior fascicular block. No significant change was found. Code Status & VTE Plan VTE Prophylaxis Plan VTE Prophylaxis will be ordered: Yes
[2023-04-19] MEDS ORDERED: ACETAMINOPHEN 325 MG TAB PO PRN (02:07)
[2023-04-19] MEDS ORDERED: NITROGLYCERIN SL 0.4 MG/TAB TAB SL PRN (02:07)
[2023-04-19] MEDS ORDERED: POLYETHYLENE (MIRALAX) 17 GM PACK PO PRN (02:07)
[2023-04-19] MEDS ORDERED: METOPROLOL TARTRATE 1 MG/ML VIAL IV PRN (02:07)
[2023-04-19] MEDS: SODIUM CHLORIDE 0.9% 1,000 ML IV SCH (03:20)
[2023-04-19] MEDS: ENOXAPARIN INJ 40 MG/0.4 ML SYR SQ SCH (06:26)
[2023-04-19 06:57] LABS: Basophils # (auto) 0.06 K/uL (0.00-0.20); Basophils % (auto) 0.7 %; Eosinophils # (auto) 0.23 K/uL (0.00-0.50); Eosinophils % (auto) 2.9 %; Hematocrit (blood only) 40.7 % (37.0-47.0); Hemoglobin 13.1 g/dl (12.0-16.0); Immature Granulocytes # (auto) 0.02 K/uL (0.01-0.20); Immature Granulocytes % (auto) 0.2 %; Lymphocytes # (auto) 2.42 K/uL (1.20-3.40); Lymphocytes % (auto) 30.2 %; Mean Corpuscular Hemoglobin 27.3 pg (25.0-34.0); Mean Corpuscular Hgb Conc 32.2 g/dL (32.0-36.0); Mean Platelet Volume 10.8 fL (9.4-12.4); Monocytes # (auto) 0.53 K/uL (0.11-0.59); Monocytes % (auto) 6.6 %; Neutrophils # (auto) 4.76 K/uL (1.40-6.50); Neutrophils % (auto) 59.4 %; Platelet Count 212 K/uL (130-400); RDW Coefficient of Variation 14.2 % (11.5-14.5); Red Blood Count 4.79 M/uL (4.20-5.40); White Blood Count 8.02 K/ul (4.8-10.8)
[2023-04-19 07:07] LABS: BUN Creatinine Ratio 15.2 (10-20); Calcium 9.3 mg/dl (8.6-10.3); Creatinine Clr Calc Pharmacy 67.4 ml/min; Est GFR (African American) 71.6 ml/min; Est GFR (Non-African American) 61.8 ml/min; Magnesium 2.2 mg/dl (1.7-2.4); Potassium 3.7 mmol/L (3.5-5.1)
[2023-04-19 07:24] LABS: Thyroid Stimulating Hormone 1.324 uIu/ml (0.300-4.500); Troponin I High Sensitivity 29.3 pg/ml (0-14)
--- NOTE | 2023-04-19 07:32 | Cardiology Consultation ---
Date of Consultation April 19, 2023 Assessment & Plan (1) Narrow complex tachycardia: (2) History of palpitations: (3) Elevated troponin: Plan IMPRESSION: 72 year old female with history of paroxysmal atrial tach presents to [facility] [place] ED with 2 hours of tachy palpations. Questionable SVT vs Atrial Tach vs Aflutter. Converted to NSR with IV diltiazem in the field. No return of narrow complex tachycardia on telemetry in ED. HR stable in the 60s but did have an episode of asymptomatic SB in the 40-50s during echo PLAN: Tachycardia: 1. Will review rhythm strips with Dr. Gomez. SVT versus atrial flutter. 2. Echo pending to rule out new wall motion abnormalities and assess valvular status. 3. Hesitant to add beta jagdish due to bradycardia seen on telemetry. 4. Will need to consider anticoagulation should atrial fibrillation/flutter be seen on telemetry. Elevated troponin: 1. Elevated troponin likely in the setting of demand. No EKG evidence of ischemia. Patient chest pain-free. Low likelihood for ACS. I spent a total of 60 minutes on the date of service in preparation, delivery, and documentation of the care provided to the patient excluding any time spent in the performance of separately billed services. ELSIE [place] Department of Cardiology, [facility] This chart was completed in part utilizing Speech Voice Recognition Software. Grammatical errors, random word insertions, pronoun errors, and incomplete sentences are an occasional consequence of this system due to software limitations, ambient noise, and hardware issues. Any formal questions or concerns about the content, text, or information contained within the body of this dictation should be directly addressed to the provider for clarification. Supervising Physician Co-Signing Physician Notes Attending attestation: Case reviewed with the advanced practitioner. I have personally performed a history and physical examination on the patient. I have reviewed the advanced practitioner's documentation on the date of service referenced in note, and I agree with, and take responsibility for the plan of care. Subjective: Patient feeling well during my assessment in the emergency department room B12 A. She notes longstanding history of brief palpitations but yesterday had onset of sensation of rapid heart rate that persisted for about 30 minutes with asso ciated lightheadedness. No chest discomfort or shortness of breath. Exam: Cardiovascular regular rhythm, no murmurs, no edema Data: EKG performed prehospital by EMS, 04/18/2023 at 18: 36 and interpreted independently: Narrow complex tachycardia at 178 bpm with regular RR interval, findings consistent with supraventricular tachycardia Repeat tracing performed 04/18/2023 at 19: 30 and interpret independently: Sinus rhythm at 65 bpm with first-degree AV block, SC interval 250 ms. Impression/ Plan: Symptomatic narrow complex tachycardia, although atrial fibrillation is a possibility, EKG more suggestive of an SVT, perhaps an AV jorge l reentrant tachycardia * Sinus rhythm and sinus bradycardia noted on telemetry since presentation to the emergency department. Ventricular rate as low as 39 bpm during rest/sleep. No pauses. * Recommend cautious initiation of metoprolol succinate 12.5 daily. * Minimal troponin elevation not surprising given the degree of tachycardia * Resting echocardiogram without significant structural heart disease * Plan for outpatient Zio patch monitor, EP and general cardiology follow-up, appointments have been requested. * Diet ordered. I spent a total of 30 minutes coordinating, documenting, and providing care for this patient excluding time spent in the performance of separately billed services or time spent by another provider. Hernandez Gomez DO History of Present Illness Reason for Consultation: SVT versus A-fib Requesting Physician: Robin gentile Attending Physician: Sarah Jarvis MD History of Present Illness 72-year-old female who presented to [facility] [place] emergency department via EMS last evening due to symptoms of tachy-palpitations and generalized malaise. Denied any chest pain during the event but did have shortness of breath and lightheadedness. Symptoms lasted a few hours and EMS was summoned. Upon arrival of EMS EKG revealed a narrow complex tachycardia with heart rate in the 170-180s. Patient was treated with IV Cardizem in the field which converted the patient to normal sinus rhythm which completely resolved her symptoms. Patient denies any prior history of atrial fibrillation but does carry a history of paroxysmal atrial tach. EKG in the ED showed SR with a 1st degree AVB with a rate of 65 bpm. Lab work was generally unremarkable except to mildly elevated high-sensitivity troponin levels of 29.1>>29.3. CTA of the chest was negative for PE or dissection. Tele: NSR with a 1st degree AVB, did have episodes of SB in to the 40s during echo- patient asymptomatic. No return of atrial arrhythmias on telemetry. Upon entrance into the room patient resting in bed. No acute distress. No chest pain or shortness of breath. Palpitations resolved. No dizziness, syncope or near syncope. No orthopnea, PND, or increased lower extremity edema. No fever, chills, cough, hematochezia, melena, or hemoptysis. Of note, patient does carry a history of dementia and is somewhat of a poor historian. She lives at home with her . Steady on her feet. No recent falls. Former smoker- quit in her 30s. No alcohol or drug use. Denies any prior cardiac history. Past medical history: History of palpitations secondary to paroxysmal atrial tach Hypertension Hyperlipidemia CKD stage III Anxiety Mnire's disease Alzheimer's dementia Allergies Allergy/AdvReac Type Severity Reaction Status Date / Time lisinopril Allergy Mild COUGH Unverified 06/19/21 09:21 Home Medications Medication Instructions Recorded Confirmed Type acetaminophen 500 mg tablet 500 mg PO Q6H PRN Pain 04/19/23 04/19/23 History (Tylenol Extra Strength) ascorbic acid (vitamin C) 1,000 mg 1 g PO QAM 04/19/23 04/19/23 History tablet (Vitamin C) aspirin 81 mg tablet,delayed 81 mg PO QAM 04/19/23 04/19/23 History release atorvastatin 20 mg tablet 20 mg PO PM 04/19/23 04/19/23 History cholecalciferol (vitamin D3) 50 50 mcg PO QAM 04/19/23 04/19/23 History mcg (2,000 unit) tablet (Vitamin D3) coenzyme Q10 100 mg capsule (Co 100 mg PO QAM 04/19/23 04/19/23 History Q-10) docusate sodium 100 mg capsule 100 mg PO QPM 04/19/23 04/19/23 History (Colace) donepezil 10 mg tablet 10 mg PO QDL 04/19/23 04/19/23 History hydrochlorothiazide 12.5 mg tablet 12.5 mg PO QAM 04/19/23 04/19/23 History levothyroxine 50 mcg tablet 50 mcg PO DAILYBB 04/19/23 04/19/23 History losartan 50 mg tablet 50 mg PO QAM 04/19/23 04/19/23 History magnesium oxide 400 mg PO QPM 04/19/23 04/19/23 History memantine 10 mg tablet 10 mg PO AMPM 04/19/23 04/19/23 History cygosoet-rbaj-xsoy 8 mg-folic 400 1 tab PO QDL 04/19/23 04/19/23 History mcg-K 50 mcg-lutein 300 mcg tablet (Centrum Silver Women) vitamin E 268 mg (400 unit) capsule 268 mg PO QPM 04/19/23 04/19/23 History Patient History Medical History (Updated 04/19/23 @ 07:32 by ELSIE Alejandre) Asthma Hypertension Surgical History (Updated 04/18/23 @ 23:50 by Spenser Wiseman MD) H/O: hysterectomy Social History Smoking Status: Former smoker Tobacco Type: Cigarettes Preferred Language: Cymro Communication Ability: Effective Equal Employment Opportunity Officer Required: No Beliefs That Will Affect Care: None Feels Safe at Home: Yes Review of Systems Review of Systems: All systems reviewed & are unremarkable except as noted in HPI & below Physical Exam Constitutional: well developed and well nourished; no acute distress Neck: normal visual inspection and trachea midline Respiratory: normal respiratory effort, lungs clear to auscultation Cardiovascular: Rate/Rhythm: regular rate and regular rhythm Heart Sounds: no murmur Vessels: no JVD Extremities: no edema Skin: no rashes, warm and dry Neurologic: PERRL, EOMI, accommodation nl, no face palsy, no dysarthria Psychiatric: Orientation: alert and oriented x 3 (forgetful ) Results & Data Vital Signs (Past 12 Hours) Vital Signs Temp Pulse Pulse Resp BP BP Pulse Ox 04/19/23 04:00 54 L 20 165/80 H 95 04/19/23 03:19 68 04/19/23 02:25 36.8 C 54 L 18 134/66 90 04/19/23 02:23 18 04/19/23 02:23 54 L 18 93 04/19/23 01:00 52 L 18 145/78 H 91 04/18/23 23:25 48 L 04/18/23 23:00 47 L 18 153/72 H 96 04/18/23 21:11 58 L 18 124/69 96 04/18/23 19:45 94 04/18/23 19:33 62 O2 Del Method 04/19/23 04:00 04/19/23 03:19 04/19/23 02:25 Room Air 04/19/23 02:23 04/19/23 02:23 Room Air 04/19/23 01:00 Room Air 04/18/23 23:25 04/18/23 23:00 Room Air 04/18/23 21:11 Room Air 04/18/23 19:45 Room Air 04/18/23 19:33 Laboratory Results Cardiac Enzymes 04/18/23 04/18/23 04/19/23 Range/Units 19:35 22:40 06:22 AST 20 (13-39) U/L Troponin I High Sens 11.7 29.1 H D 29.3 H (0-14) pg/ml Coagulation 04/18/23 Range/Units 19:32 PT 10.3 (9.0-12.0) Seconds APTT 28 (21-31) Seconds CBC 04/18/23 04/19/23 Range/Units 19:32 06:22 WBC 8.56 8.02 (4.8-10.8) K/ul RBC 5.17 4.79 (4.20-5.40) M/uL Hgb 14.0 13.1 (12.0-16.0) g/dl Hct 43.9 40.7 (37.0-47.0) % Plt Count 227 212 (130-400) K/uL Neut # (Auto) 4.96 4.76 (1.40-6.50) K/uL Lymph # (Auto) 2.80 2.42 (1.20-3.40) K/uL Harding # (Auto) 0.48 0.53 (0.11-0.59) K/uL Eos # (Auto) 0.22 0.23 (0.00-0.50) K/uL Baso # (Auto) 0.06 0.06 (0.00-0.20) K/uL Comprehensive Metabolic Panel 04/18/23 04/19/23 Range/Units 19:35 06:22 Sodium 140 142 (136-145) mmol/L Potassium 3.7 3.7 (3.5-5.1) mmol/L Chloride 105 107 (98-107) mmol/L Carbon Dioxide 28 28 (21-32) mmol/L BUN 16 14 (6-23) mg/dl Creatinine 0.91 0.92 (0.6-1.2) mg/dl Glucose 132 H 92 (70-99(Fasting)) mg/dl Calcium 9.8 9.3 (8.6-10.3) mg/dl AST 20 (13-39) U/L ALT 15 (7-52) U/L Alkaline Phosphatase 91 (34-104) U/L Total Protein 7.2 (6.0-8.3) gm/dl Albumin 4.0 (3.4-5.0) gm/dl
--- NOTE | 2023-04-19 07:35 | XRay Report ---
XR chest 1V portable HISTORY: Chest pain, nonspecific COMPARISON: Chest 01/30/2016. FINDINGS: The lungs are clear. Cardiac silhouette is normal in size. No pleural effusions. No pneumot horax. IMPRESSION: No acute process. ACT 112: Negative or not required by law. Electronically signed by: Twin Greer M.D. 04/19/2023 7:33 AM
--- OUTSIDE RECORDS SUMMARY | 2023-04-19 08:07 | External Medical Summary ---
Author Name Unknown Address Unknown Organization [id number]:LABORATORY [facility] [place] - [address] [place] [address] Laboratory Report Ordering Provider Test Date Status EDITH RHODES 03/24/2023 09:45:08 Final Normal: <30 mg/g creatinine< br/>High: 30-300 mg/g creatinine
Very High: >300 mg/g creatinine
Nephrotic: >2200 mg/g creatinine Observation Date Value Abnormality Reference (Units) Status Albumin, Urine 03/24/2023 09:45:08 <1.20 (mg/dL) Final Creatinine, Urine 03/24/2023 09:45:08 33 (mg/dL) Final ALBUMIN/CREATININE RATIO, HIDE 03/24/2023 09:45:08 Uninterpretable Albumin/Creatinine ratio due to very low albumin and creatinine values. <30 (mg/g Creat) Final Performing Location LABORATORY [facility] [place] - [address] [place] [address]
--- OUTSIDE RECORDS SUMMARY | 2023-04-19 08:07 | External Medical Summary ---
Author Name Unknown Address Unknown Organization [id number]:LABORATORY [facility] [place] - [address] [place] [address] Laboratory Report Ordering Provider Test Date Status EDITH RHODES 03/24/2023 09:45:08 Final Observation Date Value Abnormality Reference (Units ) Status BUN 03/24/2023 09:45:08 11 6-20 (mg/dL) Final Creatinine 03/24/2023 09:45:08 1.0 0.5-1.0 (mg/dL) Final Glomerular filtration rate/1.73 sq M.predicted [Volume Rate/Area] in Serum, Plasma or Blood by Creatinine-based formula (CKD-EPI) 03/24/2023 09:45:08 57 Below low normal >=60 (mL/min) Final eGFR is calculated based on the CKD-EPI 2020 equation SODIUM 03/24/2023 09:45:08 139 135-146 (m mol/L) Final Potassium 03/24/2023 09:45:08 3.9 3.5-5.1 (m mol/L) Final Cl 03/24/2023 09:45:08 100 98-107 (mm ol/L) Final CO2 03/24/2023 09:45:08 28 22-32 (mmo l/L) Final Anion gap 03/24/2023 09:45:08 11 7-15 (mmol /L) Final Glucose 03/24/2023 09:45:08 87 70-120 (mg /dL) Final Calcium 03/24/2023 09:45:08 10.1 8.4-10.2 ( mg/dL) Final Performing Location LABORATORY [facility] [place] - [address] [place] [address]
--- OUTSIDE RECORDS SUMMARY | 2023-04-19 08:07 | External Medical Summary ---
Author Name Unknown Address Unknown Organization [id number]:LABORATORY [facility] [place] - [address] [place] [address] Laboratory Report Ordering Provider Test Date Status EDITH RHODES 03/24/2023 09:45:08 Final Observation Date Value Abnormality Reference (Units ) Status ALT (Alanine aminotransferase) 03/24/2023 09:45:08 21 10-35 (U/L) Final Performing Location LABORATORY [facility] - [address] [place] [address]
--- OUTSIDE RECORDS SUMMARY | 2023-04-19 08:07 | External Medical Summary ---
Author Name Unknown Address Unknown Organization [id number]:LABORATORY [facility] - [address] [place] [address] Laboratory Report Ordering Provider Test Date Status EDITH RHODES 03/24/2023 09:45:08 Final Observation Date Value Abnormality Reference (Units ) Status TSH 03/24/2023 09:45:08 2.71 0.27-4.20 (uIU/mL) Final Performing Location LABORATORY [facility] - [address] [place] [address]
--- OUTSIDE RECORDS SUMMARY | 2023-04-19 08:07 | External Medical Summary ---
Author Name Unknown Address Unknown Organization [id number]:LABORATORY [facility] [place] - [address] [facility] [address] Laboratory Report Ordering Provider Test Date Status EDITH RHODES 03/24/2023 09:45:08 Final Observation Date Value Abnormality Reference (Units ) Status Triglyceride 03/24/2023 09:45:08 105 <=174 ( mg/dL) Final Triglyceride Reference Range s (mg/dL):
<150 Acceptable
150-174 Borderline high
175-499 High
>=500 Very high Cholesterol 03/24/2023 09:45:08 154 <200 (mg /dL) Final Total Cholesterol Reference Ranges (mg/dL):
<200 Desirable
200-239 Borderline high
>=240 High HDL 03/24/2023 09:45:08 62 >49 (mg/dL ) Final HDL Cholesterol Reference Ra nges (mg/dL):
>=60 High (Desirable)
<50 Low (Undesirable) For Females
<40 Low (Undesirable) For Males NON-HDL CHOLESTEROL 03/24/2023 09:45:08 92 <=159 (mg/dL) Final Non-HDL Cholesterol Referenc e Range (mg/dL):
<100 Target level for high risk ASCVD patient
<130 Optimal for general population
130-159 Near optimal for general population
160-189 Borderline High
190-219 High
>=220 Very High LDL, (calculated) 03/24/2023 09:45:08 71 <= 129 (mg/dL) Final LDL Cholesterol Reference Ra nges (mg/dL):
<70 Target level for high risk ASCVD patient
<100 Optimal for general population
100-129 Near optimal for general population
130-159 Borderline high
160-189 High
>=190 Very high Performing Location LABORATORY [facility] [place] - [address] [facility] [address]
--- OUTSIDE RECORDS SUMMARY | 2023-04-19 08:07 | External Medical Summary | Summary of Care ---
Author Name Unknown Organization [facility] Address [address] [place] [address] Phone [phone] Care Team Providers Care Software Configuration Engineer Name Role Phone Kit Abel DO Primary Care Provider [phone] Reason for Visit * Reason Comments Medication Refill Encounter Details Date Type Department Care Team (Late st Contact Info) Description 04/16/2023 Refill [facility] [place] [address] [place] [address] Kit Abel DO [address] [place] [address] Hyperlipidemia with target LDL less than 100 Allergies Active Allergy Reactions Criticality Noted Date Comments Lisinopril Cough 05/22/2010 documented as of this encounter (statuses as of 04/18/2023) Medications Medication Sig Dispensed Refills Start Date End Date Status VITAMIN E CAPS 400 IU ORIndications:Rou sandie medical exam daily qs 0 04/21/2000 Active ASPIRIN 81 MG PO CHEWIndications:P aroxysmal atrial tachycardia One pill by mouth once a day with food 100 5 03/14/2007 Active VITAMIN D 1000 UNITS PO CAPS 2 capsules daily 60 Cap 11 04/19/2012 Active Magnesium Oxide 400 MG Capsule Take 1 Capsule by mouth in the morning. 0 Active Coenzyme Q-10 200 MG CAPS Take 100 mg by mouth. 0 Active fluticasone (FLONASE) 50 MCG/ACT nasal sprayIndications: Dysfunction of right eustachian tube Administer 2 Sprays into each nostril daily. 48 g 1 06/04/2019 Active Albuterol Sulfate (ALBUTEROL HFA) 108 (90 BASE) MCG/ACT inhaler Inhale 2 Puffs by mouth 4 times a day. 6.7 g 3 10/24/2019 Active Multivitamin Adult Oral Tablet Take by mouth . 0 Active Donepezil HCl 10 MG Oral Tablet (Aricept) TAKE ONE TABLET BY MOUTH EVERY DAY WITH LUNCH 90 Tablet 3 08/03/2022 Active Acetaminophen 325 MG Oral Tablet (Tylenol) Take 1 Tablet by mouth every 6 hours as needed. 0 Active Memantine HCl 10 MG Oral Tablet (Namenda) Take 1 Tablet by mouth in the morning and 1 Tablet before bedtime. Start this after finishing 5 mg tablets.. 180 Tablet 3 09/17/2022 Active Losartan Potassium 50 MG Oral Tablet (Cozaar)Indicatio ns:HTN, goal below 140/90 TAKE ONE TABLET BY MOUTH EVERY DAY 90 Tablet 0 03/23/2023 Active hydroCHLOROthiazi de 12.5 MG Oral Capsule (Hydrodiuril)Yanni cations:HTN, goal below 140/90 TAKE ONE CAPSULE BY MOUTH EVERY DAY 90 Capsule 0 03/23/2023 Active Levothyroxine Sodium 50 MCG Oral Tablet (Levoxyl)Indicati ons:Hypothyroidis m TAKE 1 TABLET BY MOUTH DAILY AT LEAST 30 MINUTES PRIOR TO FIRST MEAL OF THE DAY OR OTHER MEDICATIONS 90 Tablet 0 03/23/2023 Active Atorvastatin Calcium 20 MG Oral Tablet (Lipitor)Indicati ons:Hyperlipidemi a with target LDL less than 100 TAKE ONE TABLET BY MOUTH EVERY DAY 90 Tablet 3 04/18/2023 Active Atorvastatin Calcium 20 MG Oral Tablet (Lipitor)Indicati ons:Hyperlipidemi a with target LDL less than 100 TAKE ONE TABLET BY MOUTH EVERY DAY 90 Tablet 1 11/09/2022 4 Discontinue d(Refill) documented as of this encounter (statuses as of 04/18/2023) Active Problems Problem Noted Date Diagnosed Date SHON (obstructive sleep apnea) 03/23/2023 Mild late onset Alzheimer's dementia without behavioral disturbance, psychotic disturbance, mood disturbance, or anxiety 03/23/2023 Age-related osteoporosis wit hout current pathological fracture 08/04/2022 Other atherosclerosis of [place] arteries of extremities, bilateral legs 01/26/2022 Paroxysmal atrial tachycardia 01/26/2022 Hx of adenomatous colonic polyps 03/05/2021 Overview: 11/04/2020: colonoscopy, serrated polyp repeat 5 years (10/2025) Class 2 severe obesity due t o excess calories with serious comorbidity and body mass index (BMI) of 38.0 to 38.9 in adult 10/24/2019 Hypothyroidism 08/06/2010 Dyslipidemia, goal LDL below 100 02/16/2010 HTN, goal below 140/90 02/16/2010 DJD, LEFT KNEE 05/08/2008 documented as of this encounter (statuses as of 04/18/2023) Resolved Problems Problem Noted Date Diagnosed Date Resolved Date Kidney disease, chronic, sta ge III (GFR 30-59 ml/min) 03/08/2016 12/15/2017 Overview: Per CKD protocol #1 Vitamin D deficiency 07/14/2011 018 Hyperlipidemia with target LDL less than 100 2 04/20/2017 Overview: ICD-10 update of inactive term Body mass index (BMI) of 40.0-44.9 in adult 02/06/2010 04/20/2017 Overview: ICD-10 update of inactive term Obesity, morbid (more than 1 00 lbs over ideal weight or BMI > 40) 08/12/2009 12/29/2021 Overview: Per Obesity Protocol, #19 ICD-10 update of inactive term Pneumonia due to organism 05/08/2008 Overview: ICD-10 update of inactive term Pain in limb 05/08/2008 04/20/2017 Cough 05/08/2008 04/20/2017 Palpitations 03/30/2007 04/20/2017 BENIGN NEOPLASM LG BOWEL 04/16/2003 MENIERE'S DISEASE NOS (Left Ear) 04/20/2017 documented as of this encounter (statuses as of 04/18/2023) Immunizations Name Administration Dates Next Due COVID-19 mRNA, LNP-s, No Pre serve, 2-Dose Series (Moderna) 05/03/2020,03/29/2020 COVID-19, mRNA, LNP-s, PF, B ooster, 100mcg/0.5mg (Moderna) 01/19/2021 Pneumococcal Conjugate Vacc, 13 Valent (Prevnar) 04/21/2016 Pneumococcal Polysaccharide PPV23 (Pneumovax) 04/07/2015 Season Influenza, Quad, PF, Adjuvanted, 65+ Yrs, IM (FLUAD) 01/18/2020 Seasonal Influenza, PF, 6 M & above, IM , (FluLaval or Fluzone) 12/21/2017,01/03/2017 Seasonal Influenza, Quadriva lent Hd (Fluzone Hd) 03/24/2023,12/10/2021,12/06/2020 Seasonal Influenza, Quadriva lent, No Preserve, IM 11/28/2015 Seasonal Influenza, Split, I IV3, With Preserve, Inj 12/12/2014,12/30/2011,01/18/2011,11/17 Seasonal Influenza, Trivalen t, Adjuvanted, 65+ yrs 12/22/2018 TDAP (age 10 and older)(Boostrix) 02/03/2022 TDAP (age 11 and older)(Adacel) 10/28/2009 Varicella Zoster Vaccine (Adult) 01/01/2014 Zoster Vaccine Recombinant (Shingrix) 08/08/2020 documented as of this encounter Social History Tobacco Use Types Packs/Day Years Used Date Smoking Tobacco: Former Cigarettes 1 12 1 - 11/28/1981 Smokeless Tobacco: Never Comments:1981 Alcohol Use Standard Drinks/Week Comments Yes 0 (1 standard drink = 0.6 oz pur e alcohol) Rare PHQ-2 Answer Date Recorded PHQ-2 Score 2 10/24/2019 Hunger Vital Sign Answer Date Recorded Worried About Running Out of Food in the Last Ye ar Never true 10/24/2019 Ran Out of Food in the Last Year Never true 10/24/2019 Sex and Gender Information Value Date Recorded Sex Assigned at Not on file Gender Identity Not on file Sexual Orientation Straight 10/24/2019 8: 45 AM EDT Job Start Date Occupation Industry Not on file Not on file Not on file documented as of this encounter Miscellaneous Notes * Telephone Encounter - Cassie Casillas [facility] - 04/18/2023 5:30 AM ESTSigned Prescriptions: Disp Refills Atorvastatin Calcium 20 MG Oral Tablet (Li*90 Tab*3 Sig: TAKE ONE TABLET BY MOUTH EVERY DAYAuthorizing Provider: KIT ABEL User: CASSIE CASILLAS documented in this encounter Plan of Treatment Upcoming Encounters Date Type Department Care Team (Late st Contact Info) Description 09/23/2023 9:20 AM EDT Office Visit Neurology [facility] [address] [place] [address] Selma Leyva CRNP [address] [place] [address] 09/26/2023 10:30 AM EDT Office Visit [facility] [address] [place] [address] Kit Abel DO [address], [place] [id number] Scheduled Procedures Name Priority Associated Diagnoses Date/Ti me COLONOSCOPY FLEXIBLE PROXIMAL DIAGNOSTIC Recall History of colon polyps Health Maintenance Due Date Last Done Comments Zoster Vaccines (3 of 3) 10/03/2020 08/08/2020, 05/2013 Depression Screening 10/23/2020 10/24/2019 *BISPHONATE OR OTHER ACCEPTABLE MEDICATION NEEDED FOR OSTEOPOROSIS (REFER TO SMARTSET #1146) 08/07/2022 COVID-19 Vaccine ( season) 2022 01/19/2021, 05/03/2020, 03/29/2020 Mammogram 07/15/2023 07/14/2022, 06/28, 07/13/2021, Additional history exists COLONOSCOPY-EVERY 3 YRS AGES 18-100 11/05/2023 11/04/2020, 11/04/2020, 09/30/2015, Additional history exists GFR 03/24/2024 03/24/2023, 07/2021, 10/24/2019, Additional history exists TSH 03/24/2024 03/24/2023, 08/2021, 03/05/2021, Additional history exists DXA Scan 09/13/2024 09/13/2022, 08/28, 10/17/2018, Additional history exists Albumin/Creatinine Ratio 03/24/2026 03/24/2023, 08/2021 DTaP,Tdap,and Td Vaccines (3 - Td or Tdap) 02/04/2032 02/03/2022, 10/28/2009, 04/16/2003 Pneumococcal Vaccine: 65+ Years Completed 04/21/2016, 04/07/2015 COLONOSCOPY-EVERY 5 YRS AGES 18-100 Discontinued 11/04/2020, 11/04/2020, 09/30/2015, Additional history exists Influenza Vaccine (FLU shot) Completed 03/24/2023, 12/10/2021, 12/06/2020, Additional history exists VITAMIN D LEVEL ONCE IN A LIFETIME-USE SMARTSET# [id number] Completed 03/24/2023, 10/11/2011, 05/31/2011 GARDASIL-HPV IMMUNIZATION SERIES Aged Out No longer eligible based on patient's age to complete this topic Hepatitis B Aged Out No longer eligi ble based on patient's age to complete this topic MENINGOCOCCAL (MENACTRA/MENVEO) Aged Out No longer eligible based on patient's age to complete this topic documented as of this encounter Medical Devices Not on filedocumented as of this encounter Visit Diagnoses Diagnosis Hyperlipidemia with target LDL less than 100 Other and unspecified hyperlipidemia documented in this encounter Care Teams Software Configuration Engineer Relationship Specialty Start Date End Date Kit Abel DO [address] [place] [address] PCP - General Family Medicine 09/23/15 documented as of this encounter
--- OUTSIDE RECORDS SUMMARY | 2023-04-19 08:07 | External Medical Summary | Summary of Care ---
Author Name Unknown Organization [facility] Address [address] [place] [address] Phone [phone] Care Team Providers Care Rollway Worker Name Role Phone Gayle Torres DO Primary Care Provider [phone] Reason for Visit * Reason Comments Return Neuro Encounter Details Date Type Department Care Team (Late st Contact Info) Description 03/23/2023 4:00 PM EST Office Visit Neurology, [facility] [address] [place] [address] Charlie Lima, DO [address] [place] [address] Mild late onset Alzheimer's dementia without behavioral disturbance, psychotic disturbance, mood disturbance, or anxiety (HCC)* Allergies Active Allergy Reactions Criticality Noted Date Comments Lisinopril Cough 05/22/2010 documented as of this encounter (statuses as of 03/28/2023) Medications Medication Sig Dispensed Refills Start Date End Date Status VITAMIN E CAPS 400 IU ORIndications:Routi ne medical exam daily qs 0 04/21/2000 Active ASPIRIN 81 MG PO CHEWIndications:Par oxysmal atrial tachycardia One pill by mouth once a day with food 100 5 03/14/2007 Active VITAMIN D 1000 UNITS PO CAPS 2 capsules daily 60 Cap 11 04/19/2012 Active Magnesium Oxide 400 MG Capsule Take 1 Capsule by mouth in the morning. 0 Active Coenzyme Q-10 200 MG CAPS Take 100 mg by mouth. 0 Active fluticasone (FLONASE) 50 MCG/ACT nasal sprayIndications:Dy sfunction of right eustachian tube Administer 2 Sprays [...] mg tablets.. 180 Tablet 3 09/17/2022 Active Atorvastatin Calcium 20 MG Oral Tablet (Lipitor)Indication s:Hyperlipidemia with target LDL less than 100 TAKE ONE TABLET BY MOUTH EVERY DAY 90 Tablet 1 11/09/2022 Active Losartan Potassium 50 MG Oral Tablet (Cozaar)Indications :HTN, goal below 140/90 TAKE ONE TABLET BY MOUTH EVERY DAY 90 Tablet 0 03/23/2023 Active hydroCHLOROthiazide 12.5 MG Oral Capsule (Hydrodiuril)Indica tions:HTN, goal below 140/90 TAKE ONE CAPSULE BY MOUTH EVERY DAY 90 Capsule 0 03/23/2023 Active Levothyroxine Sodium 50 MCG Oral Tablet (Levoxyl)Indication s:Hypothyroidism TAKE 1 TABLET BY MOUTH DAILY AT LEAST 30 MINUTES PRIOR TO FIRST MEAL OF THE DAY OR OTHER MEDICATIONS 90 Tablet 0 03/23/2023 Active documented as of this encounter (statuses as of 03/28/2023) Active Problems Problem Noted Date Diagnosed Date [...] as of this encounter (statuses as of 03/28/2023) Resolved Problems Problem Noted Date Diagnosed Date [...] as of this encounter (statuses as of 03/28/2023) Immunizations Name Administration Dates Next Due COVID-19 [...] Influenza, Split, I IV3, With Preserve, Inj 12/12/2014,12/30/2011,01/18/2011,10/30,12/12/2001,03/08/2000 Seasonal Influenza, Trivalen t, Adjuvanted, 65+ yrs 12/22/2018 TD - Tetanus/Diptheria (ADULT) 04/16/2003 0 04/16/2013 TDAP (age 10 and older)(Boostrix) 02/03/2022 TDAP (age 11 and older)(Adacel) 10/28/2009 Varicella Zoster Vaccine (Adult) 01/01/2014 Zoster Vaccine Recombinant (Shingrix) 08/08/2020 documented as of this encounter Social History Tobacco Use Types Packs/Day Years Used Date Smoking Tobacco: Former Cigarettes 1 12 Q uit: 11/28/1981 Smokeless Tobacco: Never Comments:1981 Alcohol Use [...] on file documented as of this encounter Patient Instructions * Patient Instructions* Selma Leyva CRNP - 03/23/2023 4:30 PM EST Images from the original note were not included. Please continue donepezil and memantine as ordered. I would consider a referral for cognitive rehab Your Guide to Cognitive Rehabilitation Many medical problems, such as traumatic brain injuries, stroke, dementia, and even cancer, can affect the brain and make it difficult for someone to think or process information. Cognitive rehabilitation therapy refers to a group of treatments that help improve a persons ability to think after a brain injury or illness that affects the brain. During cognitive rehab, therapists and psychiatrists use different methods, techniques, and tools to help improve your cognitive abilities. These might be done during individual or group sessions guided by a therapist, online programs, or a combination of these. Theres no ogy-qllt-sjyc-all approach to cognitive rehab. The type of exercises and tasks youll perform will be tailored to your needs. Depending on your specific needs, treatment might aim to improve one or more of the following skillsTrusted Source: Memory, attention, communication (written, speech, language, etc.) Understanding, reasoning, problem-solving skills ability to multitask, processing speed decision making skills, organization, planning, self-awareness Cognitive rehab is based on the concept of neuroplasticity -- that the brain can change and adjust throughout life by strengthening existing connections or creating new ones. In general, there are two types of cognitive rehab: Restorative treatment: Youll practice skills to improve them. Examples include memory exercises,problem-solving games, and mental exercises aimed at improving attention span. Compensatory treatment: Youll learn how to work around your deficits or injuries. This includes using smartphones, calendars, memory tools, and devices, and setting alarms to help compensate for reduced cognitive function. Is rehabilitation effective? A 2019 systematic review of 121 studies evaluated by the Cognitive Rehabilitation Task Force found substantial evidence to support cognitive rehab after TBI or stroke. Another systematic reviewTrusted Source published in 2021, which included 11 studies, showed that cognitive rehab was effective in helping people with mild cognitive impairment or early stage dementia perform their daily tasks of living. But current evidence across other conditions is limited. Individual studies across other conditionsare often small or personalized for people with different clinical conditions with unique goals andobjectives. There are no current guidelines for selecting the most effective cognitive rehab treatments for each specific person. More research is needed to understand the effectiveness of each type of rehab therapy and the conditions in which they are most beneficial. Lecanemab (Leqembi) is FDA approved for the treatment of Alzheimer's disease in people in the mildest stages of the disease (mild cognitive impairment and mild stage dementia). For the study that ledto lecanemab's approval, all participants had a Mini-Mental State Examination (MMSE) score of 22 orbetter and abnormal amounts of beta-amyloid in the central nervous system. In the study this was det ermined mostly through a type of brain scan called an amyloid PET scan that is not usually paid forby insurance, but can also be determined through a spinal tap. There are emerging blood based biomarkers for amyloid but it is not determined at this time whether and how much they are reimbursed by insurance. There is a Patient Registry called the [facility]zheim[facility] Network for Treatment and Diagnostics (ALZ-NET) which is a voluntary provider-enrolled patient registry that collects information on treatments for Alzheimers disease, including lecanemab. The FDA Accelerated Approval was granted on March 05, 2022 and the supervisor sheet manufacturing announced that thewholesale cost would be $26,500 per year. The treatment involves a 1 hour long infusion of 10 mg/kgof lecanemab every 2 weeks for 18 months. Patients are required to have had a MRI of the brain within 1 year of starting treatment, and repeat MRI of the brain before the 5th, 7th, and 14th infusionsof lecanemab (before about the 6th week, 10th week, and 24th week of infusions). On September 02, 2022 the FDA granted lecanemab full traditional FDA approval. They added a black box warning for a frequent side effect, Amyloid Related Imaging Abnormalities or ARIA as well as a requirement for genetic testing of the most common risk for Alzheimer's disease, apolipoprotein epsilon (ApoE) that prescribing providers are required to student assistance counselor about in regards to risk of Alzheimer's disease and how the ApoE ?4 allele can increase risk for ARIA (see below for more details). The Center of Medicare and Medicaid Services ([facility]) at that time announced that providers who submitted information through an online registry [facility] provided would have the patients considered as enrolled in a clinical study for collection of NICHOL evidence and would thus count for coverage. Depending on the type of insurance, there may be a substantial out of pocket expense still for some patients. For example, for a patient with only traditional Medicare coverage this treatment is expected to fallunder Part A coverage which would cover 80% of the cost, leaving 20% the responsibility of the patient (20% of $26,500 would be $5,300 per year, and for the total 1.5 years of treatment about $7,950). There is an [facility] Patient Support website that can help patients determine their potential costs for lecanemab as well as see if they would qualify for patient assistance from [facility] which can be found at: https://[email or web address] Advertising/hcp/leqembi There are opportunities for people with commercial (non-Medicare) insurance to potentially get somefinancial support. Information for providers and patients regarding [facility] statement on broader Medicare coverage for lecanemab can be found at: https://www.cms.gov/newsroom/press-releases/statement-broader-medicare-coverage- nfhwppz-rpcdpixfx-cvivyskbs-rwm-spejvnfjmjh-axmgeumv The [facility] NICHOL registry can be found at: https://qualitynet.[facility].gov/vyfiubupxi-hxm-wmabkkdl Patients must be able and willing to have serial MRIs of the Brain, the first prior to starting lecanemab, with follow up MRI of the Brain prior to the 5th, 7th, and 14th lecanemab infusions. The FDA prescribing information for lecanemab as of September 02, 2022 can be found at: https://www.accessdata.fda.gov/drugsatfda_docs/label/2022/824756o671dts.pdf SAFETY SUMMARY: Lecanemab may cause Amyloid Related Imaging Abnormalities or ARIA. ARIA most commonly presents as a temporary swelling in areas of the brain that usually resolves over time. Some people may also have small spots of bleeding in or on the surface of the brain. Most people with swelling in areasof the brain do not experience symptoms, however, some people may experience symptoms such as headache, confusion, dizziness, vision changes, nausea, aphasia, weakness, or seizure. Notify your healthcare provider if these symptoms occur. Events of intracerebral hemorrhage greater than 1 cm in diameter have been reported infrequently in patients taking lecanemab, and use of antithrombotic or thromb olytic medications while taking lecanemab may increase the risk of bleeding in the brain. Patients will need MRI scans to monitor for ARIA. Although ARIA can occur in any patient treated with lecanemab, there is an increased risk in patients who are ApoE ?4 homozygotes (have two copies of the ApoE ?4 form of the gene), but there is genetic testing available to determine ApoE ?4 genotype. There isalso a potential risk of infusion-related reactions, which can include flu-like symptoms, nausea, vomiting, and changes in blood pressure, the majority of which occur with the first infusion. SAFETY IN DETAIL: Deaths occurred in 0.7% of the participants in the lecanemab group and 0.8% of those in the placebogroup of the main study. No deaths were considered by the investigators to be related to lecanemab or occurred with ARIA. Serious adverse events occurred in 14.0% of the participants in the lecanemabgroup and 11.3% of those in the placebo group. The most commonly reported serious adverse events were infusion-related reactions (in 1.2% of the participants in the lecanemab group and 0 participantsin the placebo group), ARIA-E (in 0.8% and 0, respectively), atrial fibrillation (in 0.7% and 0.3%), syncope AKA fainting (in 0.7% and 0.1%), and angina pectoris AKA chest pain (in 0.7% and 0). The overall incidence of adverse events was similar in the two groups. Adverse events leading to discontinuation occurred in 6.9% of the participants in the lecanemab group and 2.9% of those in the placebogroup. The most common adverse events (affecting >10% of the participants) in the lecanemab group were infusion- related reactions (26.4% with lecanemab and 7.4% with placebo); ARIA with bleeding (ARIA-H; 17.3% with lecanemab and 9.0% with placebo); ARIA without bleeding (ARIA-E 12.6% with lecanemab and 1.7% with placebo); headache (11.1% with lecanemab and 8.1% with placebo); and falls (10.4% with lecanemab and 9.6% with placebo). Infusion-related reactions were largely mild to moderate and o ccurred with the first dose (75%). A total of 56% of the participants did not take preventative medications (i.e., nonsteroidal antiinflammatory drugs, antihistamines, or glucocorticoids) for infusion-related reactions. Of those who took preventative medications for subsequent doses, 63% did not have additional reactions. Events of ARIA-E with lecanemab were mostly mild to moderate (91%) in appearance on MRI images of the brain. These events were mostly asymptomatic (78%), occurred during the first 3 months of the treatment period (71%), and resolved within 4 months after detection (81%). A total of 2.8% of the participants in the lecanemab group had symptomatic ARIA-E; commonly reported symptoms were headache, visual disturbance, and confusion. The incidence of isolated ARIA-H (i.e., ARIA-H in participants who did not also have ARIA-E) was 8.9% in the lecanemab group and 7.8% in the placebo group. The incidence of isolated symptomatic ARIA-H was 0.7% in the lecanemab group and 0.2% in the placebo group. The most common symptom associated with isolated symptomatic ARIA-H was dizziness. Macrohemorrhage occurred in 5 of 898 participants (0.6%) in the lecanemab group and 1 of 897 participants (0.1%) in the placebo group. ARIA-H that occurred with ARIA-E tended to occur early (within 6 months). Isolated ARIA-H occurred throughout the trial. ARIA-E and ARIA-H were less common amongApoE ?4 noncarriers than among carriers, with higher frequency among ApoE ?4 homozygotes than amongApoE ?4 heterozygotes. The Apolipoprotein Epsilon gene, abbreviated as ApoE, is a risk factor for developing Alzheimersdisease. It does not tell if a person has Alzheimers disease, nor does it mean that someone is destined to have Alzheimers disease, only what this risk factor is, and maybe a bit about how a person might respond to some of the treatments designed for Alzheimers disease. The ApoE gene comesin three different types, 2, 3, & 4, and everyone has two copies of this gene. In terms of risk, 2 is protective, 3 is average risk, and 4 is increased risk. A 2/3 genotype is less likely to haveAlzheimers disease during their life, and if so, usually later in life. The 3/3 genotype is the m ost common in the population, and is at average risk from Alzheimers disease. The 3/4 genotype is at increased risk for Alzheimers disease, and at an earlier age. The 4/4 genotype is at the greatest risk for Alzheimers disease, also at an earlier age. In the 2/4 genotype the risk and protective gene cancel each other out. This is why knowing the genotype of one person does not tell the risk to their relatives. Study Reference: Silviano Noel M.D., Damir Draper, Ph.D., Hoang Ortega M.D., et al. Lecanemab in Early Alzheimers Disease. N Engl J Med March 04, 2022; 388:9-21. There was one case report of a lecanemab participant who was administered tPA for an acute stroke who had serious bleeding complications and . At this time it is recommended by [facility] [employer] that patients and families be made aware of this potential and that this information be providedwhen advising patients on lecanemab of the risks and benefits of tPA during an acute stroke. The following is used by neuroradiology for grading of ARIA severity: As of November 2022, [employer] patients are required to be in a clinical trial or registry for consideration of coverage. [facility] [employer] will have a registry for [facility] patients that collects the same data as requested in the CMS registry. The CMS registry identification number for Medicare patients was [id number] but on December 20, 2022 apermanent CMS registry identification number of [id number] was designated and this second number willlikely be the one to use for billing claims going forward. documented in this encounter Plan of Treatment Upcoming Encounters Date Type Department Care Team (Late st Contact Info) Description 03/31/2023 7:45 AM EST Imaging Radiology [address] [facility] [place] [address] 09/23/2023 9:20 AM EDT Office [facility] [place] [facility] [address] Selma Leyva CRNP [address] [place] [address] 09/26/2023 10:30 AM EDT Office Visit [facility] [address] [place] [address] Gayle Torres DO [address] [place] [address] Scheduled Procedures Name Priority Associated Diagnoses Date/Ti me COLONOSCOPY FLEXIBLE PROXIMAL DIAGNOSTIC Recall History of colon polyps Health Maintenance Due Date Last Done Comments Zoster Vaccines (3 of 3) 10/03/2020 08/08/2020, 05/2013 Depression Screening 10/23/2020 10/24/2019 *BISPHONATE OR OTHER ACCEPTABLE MEDICATION NEEDED FOR OSTEOPOROSIS (REFER TO SMARTSET #1146) 08/07/2022 COVID-19 Vaccine ( season) 2022 01/19/2021, 05/03/2020, 03/29/2020 Mammogram 07/15/2023 07/14/2022, 06/28, 07/11/2020, Additional history exists COLONOSCOPY-EVERY 3 YRS AGES 18-100 11/05/2023 11/04/2020, 11/04/2020, 09/30/2015, Additional history exists GFR 03/24/2024 03/24/2023, 07/2021, 10/24/2019, Additional history exists TSH 03/24/2024 03/24/2023, 08/2021, 03/05/2021, Additional history exists DXA Scan 09/13/2024 09/13/2022, 09/29, 05/28/2015, Additional history exists Albumin/Creatinine Ratio 03/24/2026 03/24/2023, 08/2021 DTaP,Tdap,and Td Vaccines (3 - Td or Tdap) 02/04/2032 02/03/2022, 10/28/2009, 04/16/2003 Pneumococcal Vaccine: 65+ Years Completed 04/21/2016, 04/07/2015 COLONOSCOPY-EVERY 5 YRS AGES 18-100 Discontinued 11/04/2020, 11/04/2020, 09/30/2015, Additional history exists Influenza Vaccine (FLU shot) Completed 03/24/2023, 12/10/2021, 12/06/2020, Additional history exists VITAMIN D LEVEL ONCE IN A LIFETIME-USE SMARTSET# 96322 Completed 03/24/2023, 10/11/2011, 05/31/2011 GARDASIL-HPV IMMUNIZATION SERIES [...] as of this encounter Visit Diagnoses Diagnosis 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
--- OUTSIDE RECORDS SUMMARY | 2023-04-19 08:07 | External Medical Summary | Summary of Care ---
Author Name Unknown Organization [facility] Address [address] [place] [address] Phone [phone] Care Team Providers Care Floral Designer Salesperson Name Role Phone Gayle Torres DO Primary Care Provider [phone] Reason for Visit * Reason Comments Outpatient Testing Encounter Details Date Type Department Care Team (Late st Contact Info) Description 03/24/2023 9:40 AM EST Laboratory [facility] [address] [place] [address] [facility] [address] [place] [address] HTN, goal below 140/90; Dyslipidemia, goal LDL below 100; Acquired hypothyroidism; Age-related osteoporosis without current pathological fracture Allergies Active Allergy Reactions Criticality Noted Date Comments Lisinopril Cough 05/22/2010 documented as of this encounter (statuses as of 03/24/2023) Medications Medication Sig Dispensed Refills Start Date [...] as of this encounter (statuses as of 03/24/2023) Active Problems Problem Noted Date Diagnosed Date [...] as of this encounter (statuses as of 03/24/2023) Resolved Problems Problem Noted Date Diagnosed Date [...] as of this encounter (statuses as of 03/24/2023) Immunizations Name Administration Dates Next Due COVID-19 [...] Seasonal Influenza, Quadriva lent Hd (Fluzone Hd) 12/10/2021,12/06/2020 Seasonal Influenza, Quadriva lent, No Preserve, IM [...] on file documented as of this encounter Plan of Treatment Upcoming Encounters Date Type Department Care Team (Late st Contact Info) Description 03/24/2023 10:10 AM EST Office Visit [facility] [address] [place] [address] Gayle Torres DO [address] [place] [address] Arrived 09/23/2023 9:20 AM EDT Office Visit Neurology [facility] [address] [place] [address] Selma Leyva CRNP [address] [place] [address] Pending Results Name Type Priority Associated Diagnoses Date /Time ALBUMIN / CREATININE RATIO, URINE Lab Routine HTN, goal below 140/90 03/24/2023 9:45 AM EST LIPID PANEL WITH DIRECT LDL IF TG IS HIGH Lab Routine Dyslipidemia, goal LDL below 100 03/24/2023 9:45 AM EST BASIC METABOLIC PANEL Lab Routine HTN, goal below 140/90 03/24/2023 9:45 AM EST ALT Lab Routine Dyslipidemia, goal LDL below 100 03/24/2023 9:45 AM EST TSH Lab Routine Acquired hypothyroidism 03/24/2023 9:45 AM EST T4, FREE Lab Routine Acquired hypothyroidism 03/24/2023 9:45 AM EST 25-HYDROXY VITAMIN D Lab Routine Age-related osteoporosis without current pathological fracture 03/24/2023 9:45 AM EST Scheduled Procedures Name Priority Associated Diagnoses Date/Ti me COLONOSCOPY FLEXIBLE PROXIMAL DIAGNOSTIC Recall History of colon polyps Health Maintenance Due Date Last Done Comments Zoster Vaccines (3 of 3) 10/03/2020 08/08/2020, 05/2013 Depression Screening 10/23/2020 10/24/2019 GFR 03/05/2022 03/05/2021, 09/29, 06/16/2018, Additional history exists *BISPHONATE OR OTHER ACCEPTABLE MEDICATION NEEDED FOR OSTEOPOROSIS (REFER TO SMARTSET #1146) 08/07/2022 COVID-19 Vaccine ( season) 2022 01/19/2021, 05/03/2020, 03/29/2020 Influenza Vaccine (FLU shot) (#1) 2022 12/10/2021, 12/06/2020, 01/18/2020, Additional history exists TSH 02/03/2023 02/03/2022, 07/2021, 10/24/2019, Additional history exists Mammogram 07/15/2023 07/14/2022, 06/28, 07/11/2020, Additional history exists COLONOSCOPY-EVERY 3 YRS AGES 18-100 11/05/2023 11/04/2020, 11/04/2020, 09/30/2015, Additional history exists DXA Scan 09/13/2024 09/13/2022, 09/29, 05/28/2015, Additional history exists Albumin/Creatinine Ratio 02/03/2025 02/03/2022 DTaP,Tdap,and Td Vaccines (3 - Td or Tdap) 02/04/2032 02/03/2022, 10/28/2009, 04/16/2003 VITAMIN D LEVEL ONCE IN A LIFETIME-USE SMARTSET# 18730 Completed 10/11/2011, 05/31/2011 Pneumococcal Vaccine: 65+ Years Completed 04/21/2016, 04/07/2015 COLONOSCOPY-EVERY 5 YRS AGES 18-100 Discontinued 11/04/2020, 11/04/2020, 09/30/2015, Additional history exists GARDASIL-HPV IMMUNIZATION SERIES Aged Out No longer [...] as of this encounter Visit Diagnoses Diagnosis HTN, goal below 140/90 Unspecified essential hypertension Dyslipidemia, goal LDL below 100 Other and unspecified hyperlipidemia Acquired hypothyroidism Unspecified hypothyroidism Age-related osteoporosis without current pathological fracture Senile osteoporosis documented in this encounter Care Teams Floral Designer Salesperson Relationship Specialty Start Date End Date Gayle Torres DO [address] [place] [address] PCP - General Family Medicine 09/23/15 documented as of this encounter
--- OUTSIDE RECORDS SUMMARY | 2023-04-19 08:07 | External Medical Summary ---
Author Name Unknown Address Unknown Organization [id number]:[facility] [address] [place] [address] Laboratory Report Ordering Provider Test Date Status EDITH RHODES 03/24/2023 09:45:08 Final Observation Date Value Abnormality Reference (Units ) Status T4, Free 03/24/2023 09:45:08 1.3 0.9-1.7 (n g/dL) Final Performing Location [facility] [address] [place] [address]
--- OUTSIDE RECORDS SUMMARY | 2023-04-19 08:07 | External Medical Summary ---
Author Name Unknown Address Unknown Organization [id number]:[facility] [place] [address] [place] [address] Laboratory Report Ordering Provider Test Date Status CARMELOHARMONYANJUM 03/24/2023 09:45:08 Final Deficient: <20 ng/mL
Ins ufficient: 20-29 ng/mL
Recommended/Optimum:30-50 ng/mL

Vitamin D intoxication is rare. If suspicious of Vitamin D toxicity, evaluation of serum Calcium and PTH is recommended. Observation Date Value Abnormality Reference (Units ) Status 25-OH Vitamin D total 03/24/2023 09:45:08 40 >19 (ng/mL) Final Performing Location LAB[facility]ATORY [facility] - [address] [place] [address]
--- OUTSIDE RECORDS SUMMARY | 2023-04-19 08:07 | External Medical Summary | Summary of Care ---
Author Name Unknown Organization [facility] Address [address] [place] [address] Phone [phone] Care Team Providers Care Tongue Trimmer Name Role Phone Gayle Torres DO Primary Care Provider [phone] Reason for Visit * Reason Onset Date Comments Re-Check Medication Administration 03/24/2023 Flu an d/or Pneumo Inj Encounter Details Date Type Department Care Team (Late st Contact Info) Description 03/24/2023 10:10 AM EST Office Visit [place] [address] [place] [address] Gayle Torres DO [address] [place] [address] HTN, goal below 140/90*; Encounter for screening mammogram for breast cancer; Need for prophylactic vaccination and inoculation against influenza; Other specified hypothyroidism; Mild late onset Alzheimer's dementia without behavioral disturbance, psychotic disturbance, mood disturbance, or anxiety (HCC); Hyperlipidemia with target LDL less than 100 [...] on file documented as of this encounter Last Filed Vital Signs Vital Sign Reading Time Taken Comments Blood Pressure 130/78 03/24/2023 10:04 AM EST Pulse 64 03/24/2023 10:04 AM EST Temperature 36.6 C (97.8 F) 03/24/2023 10:[address] Respiratory Rate 16 03/24/2023 10:04 AM EST Oxygen Saturation 94% 03/24/2023 10:04 AM EST Inhaled Oxygen Concentration - - Weight 109 kg (240 lb 4.8 oz) 03/24/2023 10:04 A M EST Height - - Body Mass Index 37.64 08/04/2022 8:05 AM EDT documented in this encounter Patient Instructions * Patient Instructions* Alexa Hansen LPN - 03/24/2023 10:41 AM EST ~~PATIENT INSTRUCTIONS FOR FLU SHOT~~ Possible side effects of influenza vaccine, (flu shot), are usually mild and include: 1. Soreness or redness at injection site 2. Low grade fever 3. Body aches You may use Tylenol/Acetaminophen as needed for these symptoms. LET YOUR DOCTOR KNOW IMMEDIATELY IF YOU HAVE DIFFICULTY BREATHING OR SWALLOWING, EXPERIENCE ITCHINGOF FEET OR HANDS, HAVE SWELLING OF EYES, FACE OR INSIDE OF NOSE. documented in this encounter Progress Notes * Alexa Hansen LPN - 03/24/2023 10:41 AM EST PRE - ADMINISTRATION DOCUMENTATION Are you experiencing any cold symptoms or fever? No Have you had Guillain-Bunch Syndrome (an illness that causes paralysis) within the last 6 weeks? No Have you had the flu shot in the past? YES Have you ever had a reaction to the flu shot? No Alexa Hansen LPN, 03/24/2023 10:41 AM Immunization Administration Documentation Time Out Procedure Performed: Yes Patient Identified (Ask Name/Date of ): Yes Does the patient have a fever greater than 101 degrees today? No Patient allergic to latex? No VFC Stock: No Immunization(s) verified: Yes, Immunization Name: Flu, VIS Sheet(s) given: Yes Verified Side and Site: Yes Verified Shot(s) with Parent(s)/Patient: Yes * Gayle Torres, DO - 03/24/2023 10:23 AM EST Subjective: Neyda Fowler is a 72 year old female. Chief Complaint Patient presents with Re-Check HPI: 72 year old female here today for a follow-up. She carries hx of Dyslipidemia, HTN, hypothyroidism, obesity, Atrial tachycardia, and since I saw her last new diagnosis of alzheimers and is on Namenda and Aricept. She feels that things are stable. Active during the day , she will take care of her grandauValutaoters dogs. Had blood work completed today. 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, bilateral legs ([facility]) I70.293 Paroxysmal atrial tachycardia I47.19 Age-related osteoporosis without current pathological fracture M81.0 SHON (obstructive sleep apnea) G47.33 Mild late onset Alzheimer's dementia without behavioral disturbance, psychotic disturbance, mood disturbance, or anxiety ([facility]) G30.1, F02.A0 Current Outpatient Medications Medication Sig Dispense Refill VITAMIN E CAPS 400 IU OR daily qs 0 ASPIRIN 81 MG PO CHEW One pill by mouth once a day with food 100 5 VITAMIN D 1000 UNITS PO CAPS 2 capsules daily 60 Cap 11 Magnesium Oxide 400 MG Capsule Take 1 Capsule by mouth in the morning. Coenzyme Q-10 200 MG CAPS Take 100 mg by mouth. fluticasone (FLONASE) 50 MCG/ACT nasal spray Administer 2 Sprays into each nostril daily. 48 g 1 Albuterol Sulfate (ALBUTEROL HFA) 108 (90 BASE) MCG/ACT inhaler Inhale 2 Puffs by mouth 4 times a day. 6.7 g 3 Multivitamin Adult Oral Tablet Take by mouth . Donepezil HCl 10 MG Oral Tablet (Aricept) TAKE ONE TABLET BY MOUTH EVERY DAY WITH LUNCH 90 Tablet 3 Memantine HCl 10 MG Oral Tablet (Namenda) Take 1 Tablet by mouth in the morning and 1 Tablet beforebedtime. Start this after finishing 5 mg tablets.. 180 Tablet 3 Atorvastatin Calcium 20 MG Oral Tablet (Lipitor) TAKE ONE TABLET BY MOUTH EVERY DAY 90 Tablet 1 Losartan Potassium 50 MG Oral Tablet (Cozaar) TAKE ONE TABLET BY MOUTH EVERY DAY 90 Tablet 0 hydroCHLOROthiazide 12.5 MG Oral Capsule (Hydrodiuril) TAKE ONE CAPSULE BY MOUTH EVERY DAY 90 Capsule 0 Levothyroxine Sodium 50 MCG Oral Tablet (Levoxyl) TAKE 1 TABLET BY MOUTH DAILY AT LEAST 30 MINUTES PRIOR TO FIRST MEAL OF THE DAY OR OTHER MEDICATIONS 90 Tablet 0 Acetaminophen 325 MG Oral Tablet (Tylenol) Take 1 Tablet by mouth every 6 hours as needed. No current facility-administered medications for this visit. Review of patient's allergies indicates: Allergen Reactions Lisinopril Cough Objective: BP 130/78 | Pulse 64 | Temp 36.6 C (97.8 F) | Resp 16 | Wt 109 kg (240 lb 4.8 oz) | SpO2 94% | BMI 37.64 kg/m | BSA 2.27 m Physical Exam: General: alert, healthy, and no distress Heart: regular rate & rhythm, no murmur, and no gallops Lungs: chest symmetric with normal AP diameter, no chest deformities noted, no chest wall tenderness, lungs clear to auscultation Abdomen: abdomen soft, non-tender, normal bowel sounds, and no masses or organomegaly Extremities: no edema ASSESSMENT/PLAN: HTN, goal below 140/90 (Primary) Encounter for screening mammogram for breast cancer - MAMMOGRAM SCREENING BILATERAL; Future; Expected date: 03/24/2023 Need for prophylactic vaccination and inoculation against influenza - INFLUENZA VACC, QUAD, HIGH DOSE (FLUZONE HD) Other specified hypothyroidism Mild late onset Alzheimer's dementia without behavioral disturbance, psychotic disturbance, mood disturbance, or anxiety (HCC) Hyperlipidemia with target LDL less than 100 Follow Up: Return in about 6 months (around 09/22/2023). Gayle Torres DO documented in this encounter Nursing Notes * Paulette Bañuelos, OLIVERIO - 03/24/2023 10:05 AM EST Pt in today for a check up no concerns documented in this encounter Plan of Treatment Upcoming Encounters Date Type Department Care Team (Late st Contact Info) Description 03/31/2023 7:45 AM EST Imaging Radiology [address] [place] [address] 09/23/2023 9:20 AM EDT Office Visit Neurology [facility] [address] [place] [address] Selma Leyva CRNP [address] [place] [address] 09/26/2023 10:30 AM EDT Office Visit [facility] [address] [place] [phone] Gayle Torres DO [address], [place] [phone] Scheduled Orders Name Type Priority Associated Diagnoses Orde r Schedule MAMMOGRAM SCREENING BILATERAL Medical Imaging Routine Encounter for screening mammogram for breast cancer Expected: 03/24/2023, Expires: 04/24/2024 Scheduled Procedures Name Priority Associated Diagnoses Date/Ti [...] Vaccine ( season) 2022 01/19/2021, 05/03/2020, 03/29/2020 TSH 02/03/2023 02/03/2022, 07/2021, 10/24/2019, Additional history exists Mammogram 07/15/2023 07/14/2022, 06/28, 07/11/2020, Additional history exists COLONOSCOPY-EVERY 3 YRS AGES 18-100 11/05/2023 11/04/2020, 11/04/2020, 09/30/2015, Additional history exists DXA Scan 09/13/2024 09/13/2022, 09/29, 05/28/2015, Additional history exists Albumin/Creatinine Ratio 02/03/2025 02/03/2022 DTaP,Tdap,and Td Vaccines (3 - Td or Tdap) 02/04/2032 02/03/2022, 10/28/2009, 04/16/2003 VITAMIN D LEVEL ONCE IN A LIFETIME-USE SMARTSET# [id number] Completed 10/11/2011, 05/31/2011 Pneumococcal Vaccine: 65+ Years Completed 04/21/2016, 04/07/2015 COLONOSCOPY-EVERY 5 YRS AGES 18-100 Discontinued 11/04/2020, 11/04/2020, 09/30/2015, Additional history exists Influenza Vaccine (FLU shot) Completed 03/24/2023, 12/10/2021, 12/06/2020, Additional history exists GARDASIL-HPV IMMUNIZATION SERIES Aged [...] encounter Visit Diagnoses Diagnosis HTN, goal below 140/90- Primary Unspecified essential hypertension Encounter for screening mammogram for breast cancer Need for prophylactic vaccination and inoculation against influenza Other specified hypothyroidism Mild late onset Alzheimer's dementia without behavioral disturbance, psychotic disturbance, mood disturbance, or anxiety (HCC) Hyperlipidemia with target LDL less than 100 Other and unspecified hyperlipidemia documented in this encounter Care Teams Tongue Trimmer Relationship Specialty Start Date End Date Gayle Torres DO [address] [place] [address] PCP - General Family Medicine 09/23/15 documented as of this encounter"
--- OUTSIDE RECORDS SUMMARY | 2023-04-19 08:08 | External Medical Summary | Summary of Care ---
Author Name Unknown Organization [facility] Address [address] [place] [address] Phone [phone] Care Team Providers Care Word Processing Supervisor Name Role Phone Gayle Torres DO Primary Care Provider [phone] Reason for Visit * Reason Onset Date Comments Health Maintenance 03/23/2023 Encounter Details Date Type Department Care Team (Late st Contact Info) Description 03/23/2023 Telephone [facility] [address] [place] [address] Gayle Torres DO [address] [place] [address] Health Maintenance Allergies Active Allergy Reactions Criticality Noted Date Comments Lisinopril Cough 05/22/2010 documented as of this encounter (statuses as of 03/23/2023) Medications Medication Sig Dispensed Refills Start Date [...] as of this encounter (statuses as of 03/23/2023) Active Problems Problem Noted Date Diagnosed Date Age-related osteoporosis wit hout current pathological fracture [...] as of this encounter (statuses as of 03/23/2023) Resolved Problems Problem Noted Date Diagnosed Date [...] as of this encounter (statuses as of 03/23/2023) Immunizations Name Administration Dates Next Due COVID-19 [...] encounter Miscellaneous Notes * Telephone Encounter - Radha Tim OLIVERIO - 03/23/2023 11:38 AM EST Care Gaps Comprehensive Care Outreach Last Office/Telemedicine Visit: 08/04/2022 (in office), Visit date not found (telemedicine) Next Office Visit: 03/24/2023 Hemoglobin AIC Results: No results found for: "HEMOGLOBIN A1C" Reviewed Health Maintenance below: Health Maintenance Topic Date Due Zoster Vaccines (3 of 3) 10/03/2020 Depression Screening 10/23/2020 GFR 03/05/2022 *BISPHONATE OR OTHER ACCEPTABLE MEDICATION NEEDED FOR OSTEOPOROSIS (REFER TO SMARTSET #1146) Never done Influenza Vaccine (FLU shot) (1) 10/29/2022 COVID-19 Vaccine ( season) 2022 TSH 02/03/2023 Labs already ordered pcp tomorrow Care Gap Outreach Action Taken: Outreach not indicated documented in this encounter Plan of Treatment Upcoming Encounters Date Type Department Care Team (Late st Contact Info) Description 03/23/2023 4:00 PM EST Office Visit Neurology, [place] [address] [place] [phone] Charlie Lima, [address], [place] [phone] 03/24/2023 9:40 AM EST Laboratory Laboratory, [place] [address] [place] [phone] [facility] [address], [place] [phone] 03/24/2023 10:10 AM EST Office Visit Family Practice, [place] [address] [place] [phone] Gayle Torres, [address], [place] [phone] Scheduled Procedures Name Priority Associated Diagnoses Date/Ti [...] D LEVEL ONCE IN A LIFETIME-USE SMARTSET# [id number] Completed 10/11/2011, 05/31/2011 Pneumococcal Vaccine: 65+ Years [...] Not on filedocumented as of this encounter Care Teams Word Processing Supervisor Relationship Specialty Start Date End Date Gayle Torres DO [address] [place] [address] PCP - General Family Medicine 09/23/15 documented as of this encounter
--- OUTSIDE RECORDS SUMMARY | 2023-04-19 08:08 | External Medical Summary | Summary of Care ---
Author Name Unknown Organization [facility] Address [address] [facility] [place] [address] Phone [phone] Care Team Providers Care Financial Retirement Plan Specialist Name Role Phone Kit Abel DO Primary Care Provider [phone] Reason for Visit * Reason Comments Medication Refill Encounter Details Date Type Department Care Team Description 11/07/2022 Refill [facility] [address] [place] [address] Kit Abel DO [address] [place] [address] Hyperlipidemia with target LDL less than 100 Allergies Active Allergy Reactions Severity Noted Date Comments Lisinopril Cough 05/22/2010 documented as of this encounter (statuses as of 11/09/2022) Medications Medication Sig Dispensed Refills Start Date End Date Status VITAMIN E CAPS 400 IU ORIndications:Rou sandie medical exam daily qs 0 04/21/2000 Active ASPIRIN 81 MG PO CHEWIndications:P aroxysmal atrial tachycardia (HCC) One pill by mouth once a day [...] WITH LUNCH 90 Tablet 3 08/03/2022 Active Losartan Potassium 50 MG Oral Tablet (Cozaar)Indicatio ns:HTN, goal below 140/90 TAKE ONE TABLET BY MOUTH EVERY DAY 90 Tablet 0 09/14/2022 Active Levothyroxine Sodium 50 MCG Oral Tablet (Levoxyl)Indicati ons:Hypothyroidis m TAKE 1 TABLET BY MOUTH DAILY AT LEAST 30 MINUTES PRIOR TO FIRST MEAL OF THE DAY OR OTHER MEDICATIONS 90 Tablet 0 09/14/2022 Active hydroCHLOROthiazi de 12.5 MG Oral Capsule (Hydrodiuril)Yanni cations:HTN, goal below 140/90 TAKE ONE CAPSULE BY MOUTH EVERY DAY 90 Capsule 0 09/14/2022 Active Acetaminophen 325 MG Oral Tablet (Tylenol) [...] EVERY DAY 90 Tablet 1 11/09/2022 Active Atorvastatin Calcium 20 MG Oral Tablet (Lipitor)Indicati ons:Hyperlipidemi a with target LDL less than 100 TAKE ONE TABLET BY MOUTH EVERY DAY 90 Tablet 0 05/11/2022 3 Discontinue d(Refill) documented as of this encounter (statuses as of 11/09/2022) Active Problems Problem Noted Date Age-related osteoporosis without current pathological fracture 08/04/2022 Other atherosclerosis of [place] arteries of extremities, bilateral legs 01/26/2022 Paroxysmal atrial tachycardia 01/26/2022 Hx of adenomatous colonic polyps 022 Overview: 11/04/2020: colonoscopy, serrated polyp repeat 5 years (10/2025) Class 2 severe obesity due t o excess calories with serious comorbidity and body mass index (BMI) of 38.0 to 38.9 in adult 10/24/2019 Hypothyroidism 08/06/2010 Dyslipidemia, goal LDL below 100 010 HTN, goal below 140/90 02/16/2010 DJD, LEFT KNEE 05/08/2008 documented as of this encounter (statuses as of 11/09/2022) Resolved Problems Problem Noted Date Resolved Date Kidney disease, chronic, stage III (GFR 30-59 ml /min) 03/08/2016 12/15/2017 Overview: Per CKD protocol #1 Vitamin D deficiency 07/14/2011 04/20/2017 Hyperlipidemia with target LDL less than 100 03/201104/20/2017 Overview: ICD-10 update of inactive term Body mass index (BMI) of 40.0-44.9 in adult 01/2804/20/2017 Overview: ICD-10 update of inactive term Obesity, morbid (more than 1 00 lbs over ideal weight or BMI > 40) 08/12/2009 12/29/2021 Overview: Per Obesity Protocol, #19 ICD-10 update of inactive term Pneumonia due to organism 05/08/20082017 Overview: ICD-10 update of inactive term Pain in limb 05/08/2008 04/20/2017 Cough 05/08/2008 04/20/2017 Palpitations 03/30/2007 04/20/2017 BENIGN NEOPLASM LG BOWEL 04/16/2003 018 MENIERE'S DISEASE NOS (Left Ear) 04/20/2017 documented as of this encounter (statuses as of 11/09/2022) Immunizations Name Administration Dates Next Due COVID-19 mRNA, LNP-s, No Pre serve, 2-Dose Series (Moderna) 05/03/2020,03/29/2020 COVID-19, mRNA, LNP-s, PF, B ooster, 100mcg/0.5mg (Moderna) 01/19/2021 Pneumococcal Conjugate Vacc, 13 Valent (Prevnar) 04/21/2016 Pneumococcal Polysaccharide PPV23 (Pneumovax) 04/07/2015 Season Influenza, Quad, PF, Adjuvanted, 65+ Yrs, IM (FLUAD) 01/18/2020 Seasonal Influenza, PF, 6 mo ns & Above, IM , (Flulaval) 12/21/2017,01/03/2017 Seasonal Influenza, Quadriva lent Hd (Fluzone [...] = 0.6 oz pur e alcohol) Rare Food Insecurity Answer Date Recorded Within the past 12 months, y ou worried that your food would run out before you got money to buy more. Never true 10/24/2019 Within the past 12 months, t he food you bought just didn't last and you didn't have money to get more. Never true 10/24/2019 Sex Assigned at Date Recorded Not on file Job Start Date Occupation Industry Not on file Not on file Not on file documented as of this encounter Miscellaneous Notes * Telephone Encounter - Cassie Casillas RPh - 11/09/2022 7:45 AM EDTSigned Prescriptions: Disp Refills Atorvastatin Calcium 20 MG Oral Tablet (Li*90 Tab*1 Sig: TAKE ONE TABLET BY MOUTH EVERY DAYAuthorizing Provider: KIT ABEL User: CASSIE CASILLAS documented in this encounter Plan of Treatment Upcoming Encounters Date Type Specialty Care Team Description 02/03/2023 Telemedicine Family Medicine Kalani Cruz PA-C [address] [place] [address] 03/23/2023 Office Visit Neurology Charlie Lima, DO [address] [place] [address] Scheduled Procedures Name Priority Associated Diagnoses Date/Ti me COLONOSCOPY FLEXIBLE PROXIMAL DIAGNOSTIC Recall History of colon polyps Health Maintenance Due Date Last Done Comments Zoster Vaccines (3 of 3) 10/03/2020 08/08/2020, 05/2013 Depression Screening 10/23/2020 10/24/2019 COVID-19 Vaccine (4 - Moderna series) 03/16/2021 01/19/2021, 05/03/2020, 03/29/2020 GFR 03/05/2022 03/05/2021, 09/29, 06/16/2018, Additional history exists *BISPHONATE OR OTHER ACCEPTABLE MEDICATION NEEDED FOR OSTEOPOROSIS (REFER TO SMARTSET #1146) 08/07/2022 Influenza Vaccine (FLU shot) (#1) 2022 12/10/2021, [...] D LEVEL ONCE IN A LIFETIME-USE SMARTSET# [id number] Completed 10/11/2011, 05/31/2011 Pneumococcal Vaccine: 65+ Years [...] hyperlipidemia documented in this encounter Care Teams Financial Retirement Plan Specialist Relationship Specialty Start Date End Date Kit Abel, [address] [place] [address] PCP - General Family Medicine 09/23/15 documented as of this encounter
--- OUTSIDE RECORDS SUMMARY | 2023-04-19 08:08 | External Medical Summary | Summary of Care ---
Author Name Unknown Organization [facility] Address [address] [place] [address] Phone [phone] Care Team Providers Care Ham Stripper Name Role Phone Gayle Torres DO Primary Care Provider [phone] Reason for Visit * Reason Comments Return Neuro Encounter Details Date Type Department Care Team (Late st Contact Info) Description 03/23/2023 4:00 PM EST Office Visit Neurology, [place] [address] [place] [address] Charlie Lima, DO [address] [place] [address] Mild late onset Alzheimer's dementia [...] or a combination of these. Theres no obt-tnjm-hfbm-all approach to cognitive rehab. The type of [...] granted on March 05, 2022 and the drupal php developer announced that thewholesale cost would be $26,500 [...] (ApoE) that prescribing providers are required to mortgage counselor about in regards to risk of Alzheimer's disease and how the ApoE ?4 allele can increase risk for ARIA (see below for more details). The Center of Medicare and Medicaid Services ([facility]) at that time announced that providers who submitted information through an online registry CMS provided would have the patients considered as [...] of treatment about $7,950). There is an [facility] Patient Support website that can help patients determine their potential costs for lecanemab as well as see if they would qualify for patient assistance from [facility] which can be found at: https://www.Cloutex.com/hcp/leqembi There are opportunities for people with commercial (non-Medicare) insurance to potentially get somefinancial support. Information for providers and patients regarding CMS statement on broader Medicare coverage for lecanemab can be found at: https://www.[facility].gov/newsroom/press-releases/statement-broader-medicare-coverage- kdsuckz-snggxnsna-jfzhurzlp-dkf-zhuchrhobla-cimvbyoi The [facility] registry can be found at: https://qualitynet.[facility].gov/sxkpvcrorz-dfa-qozlyocu Patients must be able and willing to have serial MRIs of the Brain, the first prior to starting lecanemab, with follow up MRI of the Brain prior to the 5th, 7th, and 14th lecanemab infusions. The FDA prescribing information for lecanemab as of September 02, 2022 can be found at: https://www.accessdata.fda.gov/drugsatfda_docs/label/2022/206408g055zpm.pdf SAFETY SUMMARY: Lecanemab may cause Amyloid Related [...] At this time it is recommended by [facility] and [employer] that patients and families be made aware of this potential and that this information be providedwhen advising patients on lecanemab of the risks and benefits of tPA during an acute stroke. The following is used by neuroradiology for grading of ARIA severity: As of November 2022, [employer] Plan patients are required to be in a clinical trial or registry for consideration of coverage. [facility] youblisher.com will have a registry for [facility] patients that collects the same data as requested in the CMS registry. The CMS registry identification number for Medicare patients was [id number] but on December 20, 2022 apermanent CMS registry identification number of [id number] was designated and this second number willlikely be the one to use for billing claims going forward. documented in this encounter Plan of Treatment Upcoming Encounters Date Type Department Care Team (Late st Contact Info) Description 03/24/2023 9:40 AM EST Laboratory [facility], [place] [address] [facility] [phone] [place], [facility] [address] [facility] [place] [facility] [place] [address] 03/24/2023 10:10 AM EST Office Visit [facility] [place] [address] [place] [facility] [place] [address] Gayle Torres, DO [address] [place] [address] 09/23/2023 9:20 AM EDT Office Visit Neurology [facility] [place] [address] [place] [address] Selma Leyva CRNP [address] [place] [address] Scheduled Procedures Name Priority Associated [...] D LEVEL ONCE IN A LIFETIME-USE SMARTSET# [id number] Completed 10/11/2011, 05/31/2011 Pneumococcal Vaccine: 65+ Years [...] Primary documented in this encounter Care Teams Ham Stripper Relationship Specialty Start Date End Date Gayle Torres DO [address] [place] [address] PCP - General Family Medicine 09/23/15 documented as of this encounter
--- OUTSIDE RECORDS SUMMARY | 2023-04-19 08:08 | External Medical Summary | Summary of Care ---
Author Name Unknown Organization [facility] Address [address] [place] [address] Phone [phone] Care Team Providers Care Pre School Manager Name Role Phone Kit Abel DO Primary Care Provider + [phone] Reason for Visit * Reason Comments Medication Refill Encounter Details Date Type Department Care Team (Late st Contact Info) Description 03/19/2023 Refill [facility] [address] [place] [address] Kalani Cruz PA-C [address] [place] [address] HTN, goal below 140/90; HYPOTHYROIDISM NOS Allergies Active Allergy Reactions Criticality Noted Date [...] Active Atorvastatin Calcium 20 MG Oral Tablet (Lipitor)Abrahamti ons:Hyperlipidemi a with target LDL less than 100 TAKE ONE TABLET BY MOUTH EVERY DAY 90 Tablet 1 11/09/2022 Active Losartan Potassium 50 MG Oral Tablet (Cozaar)Maiao ns:HTN, goal below 140/90 TAKE ONE TABLET [...] OTHER MEDICATIONS 90 Tablet 0 03/23/2023 Active Levothyroxine Sodium 50 MCG Oral Tablet (Levoxyl)Indicati ons:Hypothyroidis m TAKE 1 TABLET BY MOUTH DAILY AT LEAST 30 MINUTES PRIOR TO FIRST MEAL OF THE DAY OR OTHER MEDICATIONS 90 Tablet 0 12/13/2022 4 Discontinue d(Refill) hydroCHLOROthiazi de 12.5 MG Oral Capsule (Hydrodiuril)Yanni cations:HTN, goal below 140/90 TAKE ONE CAPSULE BY MOUTH EVERY DAY 90 Capsule 0 12/13/2022 4 Discontinue d(Refill) Losartan Potassium 50 MG Oral Tablet (Cozaar)Maiao ns:HTN, goal below 140/90 TAKE ONE TABLET BY MOUTH EVERY DAY 90 Tablet 0 12/13/2022 4 Discontinue d(Refill) documented as of this [...] encounter Miscellaneous Notes * Telephone Encounter - Kit Abel DO - 03/23/2023 8:50 AM ESTSigned Prescriptions: Disp Refills Losartan Potassium 50 MG Oral Tablet (Coza*90 Tab*0 Sig: TAKE ONE TABLET BY MOUTH EVERY DAY Authorizing Provider: KIT ABEL hydroCHLOROthiazide 12.5 MG Oral Capsule (*90 Cap*0 Sig: TAKE ONE CAPSULE BY MOUTH EVERY DAY Authorizing Provider: KIT ABEL Levothyroxine Sodium 50 MCG Oral Tablet (L*90 Tab*0 Sig: TAKE 1 TAB LET BY MOUTH DAILY AT LEAST 30 MINUTES PRIOR TO FIRST MEAL OF THE DAY OR OTHER MEDICATIONS Authorizing Provider: KIT ABEL * Telephone Encounter - Heydi Henderson, systems technician - 03/22/2023 8:19 AM EST Pending Prescriptions: Disp Refills Losartan Potassium 50 MG Oral Tablet (Coza*90 Tab*0 Sig: TAKE ONE TABLET BY MOUTH EVERY DAY hydroCHLOROthiazide 12.5 MG Oral Capsule (*90 Cap*0 Sig: TAKE ONE CAPSULE BY MOUTH EVERY DAY Levothyroxine Sodium 50 MCG Oral Tablet (L*90 Tab*0 Sig: TAKE 1 TABLET BY MOUTH DAILY AT LEAST 30 MINUTES PRIOR TO FIRST MEAL OF THE DAY OR O THER MEDICATIONS * Telephone Encounter - Heydi Henderson PHARM Tech - 03/22/2023 8:14 AM EST Received message from [facility] regarding patient needing appointment and labs. Placed call to patient toadvise. Pt was agreeable to set up both an office visit and lab appointment. Patient's lab appointment is 03/24 and office visit is 03/24. Thank you for your assistance Heydi Henderson Livestock Yard Supervisor II [facility] ([facility]) (Formerly Telepharmacy) 03/22/2023,8:14 AM * Telephone Encounter - Cortney Mo RP - 03/21/2023 12:00 PM ESTPending Prescriptions: Disp Refills Losartan Potassium 50 MG Oral Tablet (Coza*90 Tab*0 Sig: TAKE ONE TABLET BY MOUTH EVERY DAY hydroCHLOROthiazide 12.5 MG Oral Capsule (*90 Cap*0 Sig: TAKE ONE CAPSULE BY MOUTH EVERY DAY Levothyroxine Sodium 50 MCG Oral Tablet (L*90 Tab*0 Sig: TAKE 1 TABLET BY MOUTH DAILY AT LEAST 30 MINUTES PRIOR TO FIRST MEAL OF THE DAY OR O THER MEDICATIONS * Telephone Encounter - Cortney Mo RPh - 03/21/2023 12:00 PM EST Unable to authorize medication refills for pended medication(s) at this time. Part of the protocol criteria used for refill authorization was not satisfied. Per refill protocol patient should have routine labs on file within past year. Reviewed AMP report,Care Gaps/Health Maintenance, medications list, and for any routine labs typically ordered for thispatient. Lab orders placed. Please contact patient to schedule office visit with PRIMARY CARE and advise of labs ordered for blood draw AND URINE specimen (patient will have to be able to void to provide sample).. Recommend patient to fast if able for labs. Patient may still have water and regular medications. Advise to obtain labs before requesting the next refill. Last Visit: 08/04/2022 (in office), Visit date not found (telemedicine) Next Visit: Visit date not found After contacting patient, please forward request to Kit Abel DO. Thanks, Cortney Mo PharmD Clinical Pharmacist [facility] ([facility]) [phone] 03/21/2023, 12:00 PM * Telephone Encounter - User, Interconnect - 03/19/2023 3:28 PM ESTPending Prescriptions: Disp Refills Losartan Potassium 50 MG Oral Tablet (Coza*90 Tab*0 Sig: TAKE ONE TABLET BY MOUTH EVERY DAY hydroCHLOROthiazide 12.5 MG Oral Capsule (*90 Cap*0 Sig: TAKE ONE CAPSULE BY MOUTH EVERY DAY * Telephone Encounter - User, Interconnect - 03/19/2023 3:28 PM ESTPending Prescriptions: Disp Refills Losartan Potassium 50 MG Oral Tablet (Coza*90 Tab*0 Sig: TAKE ONE TABLET BY MOUTH EVERY DAY hydroCHLOROthiazide 12.5 MG Oral Capsule (*90 Cap*0 Sig: TAKE ONE CAPSULE BY MOUTH EVERY DAY Levothyroxine Sodium 50 MCG Oral Tablet (L*90 Tab*0 Sig: TAKE 1 TABLET BY MOUTH DAILY AT LEAST 30 MINUTES PRIOR TO FIRST MEAL OF THE DAY OR O THER MEDICATIONS documented in this encounter Plan of Treatment Upcoming Encounters Date Type Department Care Team (Late st Contact Info) Description 03/23/2023 4:00 PM EST Office Visit Neurology, [place] [address] [place] [id number] Charlie Lima, DO [address] [place] [address] 03/24/2023 9:40 AM EST Laboratory Laboratory, [place] [address] [place] [address] [facility] [address], [place] [id number] 03/24/2023 10:10 AM EST Office Visit Family Practice, [place] [address] [place] [address] Kit Abel, [address], [place] [id number] Scheduled Procedures Name Priority Associated Diagnoses Date/Ti [...] D LEVEL ONCE IN A LIFETIME-USE SMARTSET# [id number] Completed 10/11/2011, 05/31/2011 Pneumococcal Vaccine: 65+ Years [...] HTN, goal below 140/90 Unspecified essential hypertension HYPOTHYROIDISM NOS Unspecified hypothyroidism documented in this encounter Care Teams Pre School Manager Relationship Specialty Start Date End Date Kit Abel DO [address] [place] [address] PCP - General Family Medicine 09/23/15 documented as of this encounter
--- OUTSIDE RECORDS SUMMARY | 2023-04-19 08:08 | External Medical Summary | Summary of Care ---
Author Name Unknown Organization [facility] Address [address] [facility] [place] [address] Phone [phone] Care Team Providers Care Shank Cementer Hand Name Role Phone Gayle Torres DO Primary Care Provider + [phone] Reason for Visit * Reason Comments Medication Refill Encounter Details Date Type Department Care Team Description 12/12/2022 Refill [facility] [address] [place] [address] Gayle Torres DO [address] [place] [address] HYPOTHYROIDISM NOS; HTN, goal below 140/90 Allergies Active Allergy Reactions Severity Noted Date Comments Lisinopril Cough 05/22/2010 documented as of this encounter (statuses as of 12/13/2022) Medications Medication Sig Dispensed Refills Start Date [...] EVERY DAY 90 Tablet 1 11/09/2022 Active Levothyroxine Sodium 50 MCG Oral Tablet (Levoxyl)Indicati ons:Hypothyroidis m TAKE 1 TABLET BY MOUTH DAILY AT LEAST 30 MINUTES PRIOR TO FIRST MEAL OF THE DAY OR OTHER MEDICATIONS 90 Tablet 0 12/13/2022 Active hydroCHLOROthiazi de 12.5 MG Oral Capsule (Hydrodiuril)Yanni cations:HTN, goal below 140/90 TAKE ONE CAPSULE BY MOUTH EVERY DAY 90 Capsule 0 12/13/2022 Active Losartan Potassium 50 MG Oral Tablet (Cozaar)Indicatio ns:HTN, goal below 140/90 TAKE ONE TABLET BY MOUTH EVERY DAY 90 Tablet 0 12/13/2022 Active Losartan Potassium 50 MG Oral Tablet (Cozaar)Indicatio ns:HTN, goal below 140/90 TAKE ONE TABLET BY MOUTH EVERY DAY 90 Tablet 0 09/14/2022 3 Discontinue d(Refill) Levothyroxine Sodium 50 MCG Oral Tablet (Levoxyl)Indicati ons:Hypothyroidis m TAKE 1 TABLET BY MOUTH DAILY AT LEAST 30 MINUTES PRIOR TO FIRST MEAL OF THE DAY OR OTHER MEDICATIONS 90 Tablet 0 09/14/2022 3 Discontinue d(Refill) hydroCHLOROthiazi de 12.5 MG Oral Capsule (Hydrodiuril)Yanni cations:HTN, goal below 140/90 TAKE ONE CAPSULE BY MOUTH EVERY DAY 90 Capsule 0 09/14/2022 3 Discontinue d(Refill) documented as of this encounter (statuses as of 12/13/2022) Active Problems Problem Noted Date Age-related osteoporosis without current pathological fracture 08/04/2022 Other atherosclerosis of tejon arteries of extremities, bilateral legs 01/26/2022 Paroxysmal [...] as of this encounter (statuses as of 12/13/2022) Resolved Problems Problem Noted Date Resolved Date [...] as of this encounter (statuses as of 12/13/2022) Immunizations Name Administration Dates Next Due COVID-19 mRNA, LNP-s, No Pre serve, 2-Dose Series (Moderna) 05/03/2020,03/29/2020 COVID-19, mRNA, LNP-s, PF, B ooster, 100mcg/0.5mg (Moderna) 01/19/2021 Pneumococcal Conjugate Vacc, 13 Valent (Prevnar) 04/21/2016 Pneumococcal Polysaccharide PPV23 (Pneumovax) 04/07/2015 SEASONAL INFLUENZA, PF, 6 M & Above, IM , (FLULAVAL or FLUZONE) 12/21/2017,01/03/2017 Season Influenza, Quad, PF, Adjuvanted, 65+ Yrs, IM (FLUAD) 01/18/2020 Seasonal Influenza, Quadriva lent Hd (Fluzone Hd) [...] encounter Miscellaneous Notes * Telephone Encounter - Carmen John RPh - 12/13/2022 1:38 PM EDTSigned Prescriptions: Disp Refills Levothyroxine Sodium 50 MCG Oral Tablet (L*90 Tab*0 Sig: TAKE 1 TABLET BY MOUTH DAILY AT LEAST 30 MINUTES PRIOR TO FIRST MEAL OF THE DAY OR OTHER MEDICATIONS Authorizing Provider: KALANI CRUZ Ordering User: CARMEN JOHN hydroCHLOROthiazide 12.5 MG Oral Capsule (*90 Cap*0 Sig: TAKE ONE CAPSULE BY MOUTH EVERY DAY Authorizing Provider: KALANI CRUZ Ordering User: CARMEN JOHN Losartan Potassium 50 MG Oral Tablet (Coza*90 Tab*0 Sig: TAKE ONE TABLET BY MOUTH EVERY DAY Authorizing Provider: KALANI CRUZ Ordering User: CARMEN JOHN * Telephone Encounter - Carmen John RPh - 12/13/2022 1:38 PM EDT RX authorized. Zero refills given until upcoming OV and repeat labs are completed. Thank you, Carmen John, PharmD Clinical Pharmacist [facility] ([facility]) 12/13/22 1:38 PM [phone] * Telephone Encounter - Interconnect User - 12/12/2022 4:01 PM EDTPending Prescriptions: Disp Refills Levothyroxine Sodium 50 MCG Oral Tablet (L*90 Tab*0 Sig: TAKE 1TABLET BY MOUTH DAILY AT LEAST 30 MINUTES PRIOR TO FIRST MEAL OF THE DAY OR OTHER MEDICATIONS hydroCHLOROthiazide 12.5 MG Oral Capsule (*90 Cap*0 Sig: TAKE ONE CAPSULE BY MOUTH EVERY DAY * Telephone Encounter - Interconnect User - 12/12/2022 4:01 PM EDTPending Prescriptions: Disp Refills Levothyroxine Sodium 50 MCG Oral Tablet (L*90 Tab*0 Sig: TAKE 1 TABLET BY MOUTH DAILY AT LEAST 30 MINUTES PRIOR TO FIRST MEAL OF THE DAY OR OTHER MEDICATIONS hydroCHLOROthiazide 12.5 MG Oral Capsule (*90 Cap*0 Sig: TAKE ONE CAPSULE BY MOUTH EVERY DAY Losartan Potassium 50 MG Oral Tablet (Coza*90 Tab*0 Sig: TAKE O NE TABLET BY MOUTH EVERY DAY documented in this encounter Plan of Treatment Upcoming Encounters Date Type Specialty Care Team Description 02/03/2023 Telemedicine Family Medicine Kalani Cruz PA-C [address] [place] [address] 03/23/2023 Office Visit Neurology Charlie Lima, DO [address], [place] [id number] Scheduled Procedures Name Priority Associated Diagnoses Date/Ti [...] D LEVEL ONCE IN A LIFETIME-USE SMARTSET# [id number] Completed 10/11/2011, 05/31/2011 Pneumococcal Vaccine: 65+ Years [...] as of this encounter Visit Diagnoses Diagnosis HYPOTHYROIDISM NOS Unspecified hypothyroidism HTN, goal below 140/90 Unspecified essential hypertension documented in this encounter Care Teams Shank Cementer Hand Relationship Specialty Start Date End Date Gayle Torres, DO [address] [place] [address] PCP - General Family Medicine 09/23/15 documented as of this encounter
--- OUTSIDE RECORDS SUMMARY | 2023-04-19 08:08 | External Medical Summary | Summary of Care ---
Author Name Unknown Organization [facility] Address [address] [place] [address] Phone [phone] Care Team Providers Care General Education Professor Name Role Phone Gayle Torres DO Primary Care Provider [phone] Reason for Visit * Reason Comments Return Neuro Encounter Details Date Type Department Care Team (Late st Contact Info) Description 03/23/2023 4:00 PM EST Office Visit Neurology, [place] [address] [place] [address] Charlie Lima, DO [address] [place] [address] Mild late onset Alzheimer's dementia [...] or a combination of these. Theres no urz-ilkd-mors-all approach to cognitive rehab. The type of [...] granted on March 05, 2022 and the communications officer announced that thewholesale cost would be $26,500 [...] (ApoE) that prescribing providers are required to funeral prearrangement counselor about in regards to risk of Alzheimer's disease and how the ApoE ?4 allele can increase risk for ARIA (see below for more details). The Center of Medicare and Medicaid Services ([facility]) at that time announced that providers [...] of treatment about $7,950). There is an [facility] Patient Support website that can help patients determine their potential costs for lecanemab as well as see if they would qualify for patient assistance from [facility] which can be found at: https://www.[employer].com/hcp/leqembi There are opportunities for people with commercial (non-Medicare) insurance to potentially get somefinancial support. Information for providers and patients regarding CMS statement on broader Medicare coverage for lecanemab can be found at: https://www.[facility].gov/newsroom/press-releases/statement-broader-medicare-coverage- rdnqxzg-hkvcvjcic-juhvuqrdd-nqv-nwtiviosdzy-dmltjayx The [facility] NICHOL registry can be found at: https://qualitynet.[facility].gov/ktefuzyyqo-xgu-bhjgvuob Patients must be able and willing to have serial MRIs of the Brain, the first prior to starting lecanemab, with follow up MRI of the Brain prior to the 5th, 7th, and 14th lecanemab infusions. The FDA prescribing information for lecanemab as of September 02, 2022 can be found at: https://www.accessdata.fda.gov/drugsatfda_docs/label/2022/758165n079tka.pdf SAFETY SUMMARY: Lecanemab may cause Amyloid Related [...] At this time it is recommended by [facility] and [employer] that patients and families be made aware of this potential and that this information be providedwhen advising patients on lecanemab of the risks and benefits of tPA during an acute stroke. The following is used by neuroradiology for grading of ARIA severity: As of November 2022, [employer] patients are required to be in a clinical trial or registry for consideration of coverage. [facility] [employer] will have a registry for [facility] patients that collects the same data as requested in the CMS registry. The CMS registry identification number for Medicare patients was [id number] but on December 20, 2022 apermanent CMS registry identification number of [id number] was designated and this second number willlikely be the one to use for billing claims going forward. documented in this encounter Plan of Treatment Upcoming Encounters Date Type Department Care Team (Late st Contact Info) Description 03/24/2023 9:40 AM EST [facility], [place] [address] [facility] [id number] [place] [address] [facility] [place] [address] 03/24/2023 10:10 AM EST Office Visit [facility] [place] [address] [facility] [place] [address] Gayle Torres, DO [address] [place] [address] 09/23/2023 9:20 AM EDT Office Visit Neurology [facility] [address] [facility] [place] [address] Selma Leyva CRNP [address] [place] [address] Scheduled Procedures Name Priority Associated [...] D LEVEL ONCE IN A LIFETIME-USE SMARTSET# [id number] Completed 10/11/2011, 05/31/2011 Pneumococcal Vaccine: 65+ Years [...] Primary documented in this encounter Care Teams General Education Professor Relationship Specialty Start Date End Date Gayle Torres DO [address] [place] [address] PCP - General Family Medicine 09/23/15 documented as of this encounter
[2023-04-19] MEDS: LEVOTHYROXINE SODIUM 50 MCG TABLET PO SCH (08:34)
[2023-04-19] MEDS ORDERED: NON-FORMULARY MEDICATION (Coenzyme Q10 [Co Q-10] 100 mg Capsule) PO SCH (09:00)
[2023-04-19] MEDS: MEMANTINE HCL 10 MG TAB PO SCH (09:36)
[2023-04-19] MEDS: hydroCHLOROthiazide 25 MG TAB PO SCH (09:36)
[2023-04-19] MEDS: ASCORBIC ACID 500 MG TAB PO SCH (09:36)
[2023-04-19] MEDS: CHOLECALCIFEROL 25 MCG (1000 UNITS) TAB PO SCH (09:36)
[2023-04-19] MEDS: ASPIRIN 81 MG ECTAB PO SCH (09:36)
[2023-04-19] MEDS: LOSARTAN POTASSIUM 50 MG TAB PO SCH (09:36)
--- NOTE | 2023-04-19 11:04 | Electrocardiogram Report ---
Test Reason : Blood Pressure : / mmHG Vent. Rate : 065 BPM Atrial Rate : 065 BPM P-R Int : 250 ms QRS Dur : 106 ms QT Int : 420 ms P-R-T Axes : 063 -69 040 degrees QTc Int : 436 ms Sinus rhythm with 1st degree A-V block Left anterior fascicular block Minimal voltage criteria for LVH, may be normal variant Abnormal ECG When compared with ECG of 30-JAN-2016 13:52, No significant change was found Confirmed by Silviano Joe ([id number]) on 04/19/2023 11:04:07 AM Referred By: REFERRED SELF Confirmed By:Jeremías Joe
--- NOTE | 2023-04-19 12:27 | Discharge Summary ---
Date of Service April 19, 2023 Admission HPI Per Admitting Provider 72-year-old female with past medical history significant for hyperlipidemia, hypothyroidism, obstructive sleep apnea, hypertension, atherosclerosis of bilateral legs, paroxysmal atrial tachycardia, obesity, osteoporosis, 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 Patient states she was not feeling well today and had some palpitations. When EMS arrived EKG showed heart rate of 178 possible SVTs. Initially thought that she had history of A-fib and IV Cardizem was given which converted to regular rhythm. Currently resting comfortably and hemodynamically stable. Patient has mild dementia but was able to give a history. Can tell her name. Knows that she in the hospital. Could tell her date of . Could tell month and year. Not precise with exact dates. Called but not able to reach him. Earlier daughter was in the ER and seems she told the Er that patient does not have A-fib. Patient denies any headache. No blurred visions. No earache or runny nose. No sore throat. No cough. No fevers. Denies any chest pain or shortness of breath. No nausea. No abdominal pain. Normal bowel and bladder movements. Ambulates okay without support as per patient. Currently resting comfortably and hemodynamically stable. Past medical history. As mentioned above Past surgical history. Left chest lumpectomy, benign cyst. Colonoscopy. EGD. Partial hysterectomy. Social history. . Quit smoking 1981. Smoked 1 pack a day for 12 years. Alcohol rarely. No drug use. Family history. Father had stomach cancer. Mother had colon cancer. Daughter had benign brain tumor. Admission Exam Per Admitting Provider General- Not in distress Head- atraumatic Eyes- PERRL. ENT- oropharynx clear Neck- supple, no JVD. Lungs- clear to auscultation no wheezing or crackles. Heart- regular rhythm; no murmur, no gallop. Abdomen- normal bowel sounds, soft, nontender, no distension. Extremities- no pretibial edema, no erythema seen. Neuro- alert, oriented x 3; PERRL, no facial palsy; no dysarthria; moves e xtremities Skin- warm & dry Principal Diagnosis Narrow complex tachycardia Discharge Exam Constitutional + well hydrated; no acute distress Eyes PERRL, conjunctivae normal, anicteric sclerae ENMT external ear and nose normal, oropharynx normal Respiratory normal respiratory effort, lungs clear to auscultation Cardiovascular Rate/Rhythm: regular rate and regular rhythm S1 S2 Gastrointestinal (Abdomen) normal bowel sounds, soft, nontender, no hepatosplenomegaly Musculoskeletal no cyanosis or clubbing, extremities motor strength 5/5 No pedal edema Neurologic PERRL, EOMI, accommodation nl, no face palsy, no dysarthria Psychiatric A+Ox3, euthymic affect Discharge Data Allergies Allergy/AdvReac Type Severity Reaction Status Date / Time lisinopril Allergy Mild COUGH Unverified 06/19/21 09:21 Consultations 04/19/23 00:00 ED Decision to Admit Stat 04/19/23 08:00 Consult Cardiology Routine Ordered Studies 04/18/23 21:42 CT angio chest PE protocol Stat Hospital Course (1) Tachyarrhythmia: 72-year-old female with past medical history significant for hyperlipidemia, hypothyroidism, obstructive sleep apnea, hypertension, atherosclerosis of bilateral legs, paroxysmal atrial tachycardia, obesity, osteoporosis, 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 Patient states she was not feeling well today and had some palpitations. When EMS arrived EKG showed heart rate of 178 possible SVTs. Initially thought that she had history of A-fib and IV Cardizem was given which converted to regular rhythm. Currently resting comfortably and hemodynamically stable. Patient has mild dementia but was able to give a history. Can tell her name. Knows that she in the hospital. Could tell her date of . Could tell month and year. Not precise with exact dates. C Narrow complex tachycardia History of paroxysmal atrial tachycardia Converted to sinus rhythm with IV Cardizem Hemodynamic stable Currently asymptomatic History of palpitations Mildly elevated troponin EKG did not show ischemic changes Mild trop elevation due to tachycardia Echocardiogram showed EF of 55 to 60%, normal left ventricular wall thickness, no regional wall motion abnormalities, grade 1 diastolic dysfunction, no significant valvular disease Reviewed with Supervisor Dog License Officer who recommends starting metoprolol succinate 12.5mg daily Cardiology will arrange outpatient follow up with EP, cardiology and zio patch monitor Elevated D-dimer CT chest no PE History of hypothyroidism On Synthyroid Mild Alzheimer's dementia without behavioral disturbance On donezepil and Namenda Obstructive sleep apnea Not on oxygen or CPAP as per patient States she is doing fine Hypertension On losartan, hydrochlorothiazide Hyperlipidemia On statin Peripheral vascular disease On statin and aspirin Updated patient and at bedside Total Time Total Time Spent Total Time Spent (In Minutes): 35 Total Time Includes: Examination of the Patient, Discharge Planning, Medication Reconciliation and Communication With Other Providers Discharge Plan Discharge Items Patient Disposition: Home - Self-Care Reason For Visit: Palpitations Discharge Diagnosis: Narrow complex tachycardia Activity: Resume your previous activity Non-emergency contact: Primary Care Provider and Supervisor Dog License Officer Call non-emergency contact if: you have any medication questions and your symptoms worsen Follow-up/Referrals: Gayle Torres DO [Primary Care Provider] - (Date & Time 04/22/2023 2:00 PM Provider Max Winter MD [facility] ) Shahla Maxwell CRNP [Nurse Practitioner] - (The Cardiology office will contact you for a follow up appointment/testing.) Diet: Heart Healthy Addtl Attending Provider Instructions: Mrs Fowler. You came to the hospital complaining of palpitations which has since resolved You were evaluated by Supervisor Dog License Officer You were started on metoprolol succinate 12.5mg daily. You will need to have zio patch testing and follow up with Cardiology in the office. It was a pleasure taking care of you. Pending Studies at Discharge: No Stand-Alone Forms: [facility], Smoking Cessation Medications and DC Order Prescriptions: New metoprolol succinate 25 mg Tablet Extended Release 24 Hr 12.5 mg PO QAM Qty: 30 0RF Continued aspirin 81 mg Tablet,Delayed Release (Dr/Ec) 81 mg PO QAM levothyroxine 50 mcg Tablet 50 mcg PO DAILYBB donepezil 10 mg Tablet 10 mg PO QDL vitamin E 268 mg (400 unit) Capsule 268 mg PO QPM magnesium oxide 400 mg magnesium Tablet 400 mg PO QPM atorvastatin 20 mg Tablet 20 mg PO PM memantine 10 mg Tablet 10 mg PO AMPM cholecalciferol (vitamin D3) [Vitamin D3] 50 mcg (2,000 unit) Tablet 50 mcg PO QAM losartan 50 mg Tablet 50 mg PO QAM ascorbic acid (vitamin C) [Vitamin C] 1,000 mg Tablet 1 g PO QAM acetaminophen [Tylenol Extra Strength] 500 mg Tablet 500 mg PO Q6H PRN (Reason: Pain) docusate sodium [Colace] 100 mg Capsule 100 mg PO QPM coenzyme Q10 [Co Q-10] 100 mg Capsule 100 mg PO QAM hydrochlorothiazide 12.5 mg Tablet 12.5 mg PO QAM Centrum Silver Women 8 mg iron-400 mcg-50 mcg Tablet 1 tab PO QDL Discharge Orders: Discharge Order (Routine); Ordered 04/19/23 Ordered By: Sarah Jarvis Admission Data Admit Date/Time: 04/19/23 01:45 Attending Provider: Sarah Jarvis I. Admit Provider: Clayton Loera Primary Care Provider: Gayle Torres Other Providers: Clayton Loera Other Interventions: Discharge Summary Assessment (RN) Last Done: 04/19/23 13:38
[2023-04-19] MEDS: METOPROLOL SUCC 25MG EXT REL TAB PO SCH (13:23)
[2023-04-19] MEDS: CEROVITE ADV FORMULA TAB PO SCH (13:24)
[2023-04-19] MEDS: DONEPEZIL HCL 10 MG TAB PO SCH (13:33)
[2023-04-19] MEDS ORDERED: MAGNESIUM OXIDE 400 MG TAB PO SCH (21:00)
[2023-04-19] MEDS ORDERED: DOCUSATE SODIUM 100 MG CAP PO SCH (21:00)
[2023-04-19] MEDS ORDERED: ATORVASTATIN 20 MG TAB PO SCH (21:00)
== END 2023-04-19 13:38 | disposition home or self-care (01) | DRG 309 ==
LOC: ED 19:20 → SUATTDRO 04-19 01:45 → EDINP 04-19 01:45

== ENCOUNTER 2024-03-13 22:27 | Observation (INO) ==
--- NOTE | 2024-03-13 22:46 | Emergency Department Note ---
Impression & Plan Heart palpitations, Hypertension ED Provider Note Provider: Eliu Davila MD CHIEF COMPLAINT: Palpitations, hypertension, low heart rate HISTORY OF PRESENT ILLNESS: Patient is a 73-year-old female history of some memory issues, hypertension, tachyarrhythmias, and as well as bradycardia at times presenting here with . Was hospitalized here last year after atrial tachyarrhythmia. Has followed the outpatient with cardiology and did have an outpatient monitor. Reports that she is been doing fine. No recent illnesses. This evening around 6:00 or so started feel some palpitations. No significant chest pain or shortness of breath. Just felt a bit off. No leg swelling. No recent travel. No significant abdominal symptoms or nausea or vomiting. Patient's granddaughter who has nursing training found her blood pressure to be elevated in the 170s and her heart rate low at times into the 30s. Patient has a history of low heart rates at times. States compliance with the medication. Does drink 2 pots of coffee every day but this has been ongoing. States this evening had a period of some dizziness but no syncope or falls with this and thus decided to come in for further evaluation. No headache or numbness or tingling reported PAST MEDICAL HISTORY: As noted above MEDICATIONS: Reviewed home medications no longer includes metoprolol SOCIAL HISTORY: PHYSICAL EXAM: GENERAL: alert and oriented in no acute distress on stretcher Head: normocephalic and atraumatic EYES: No injection, discharge or icterus. EOMI. NECK: Trachea midline with good range of motion ENT: Mucous membranes pink and moist. LUNGS: Airway patent. No retractions. Breath sounds clear with good air entry bilaterally. HEART: Regular rate and rhythm. No chest wall tenderness ABDOMEN: Soft and non-tender, without guarding or rebound. SKIN: Acyanotic, warm, dry, without rashes EXTREMITIES: Without swelling, tenderness or deformity NEUROLOGICAL: No focal deficits. No aphasia. No facial droop or slurred speech. Normal strength and tone in the extremities. Sensation to gross touch normal. Ambulatory. EK bpm sinus rhythm first-degree AV block. No PVC or PAC. Left anterior fascicular block. No acute ST segment elevation or depression with a QTc of 427. CONTINUOUS CARDIAC MONITORING: was ordered and showed a heart rate of 50s-60s bpm in sinus bradycardia Patient's laboratory studies and imaging reviewed. Differential includes Premature contractions, electrolyte abnormality, cardiac dysrhythmia, thyroid dysfunction, pulmonary embolism, infection, gastrointestinal, as well as other pathologies. IMPRESSION/MEDICAL DECISION MAKING: Patient hypertensive upon his arrival. Very minimally bradycardic but no significant tachyarrhythmia noted. Patient not always the best recollection of her history. With hospice case manager reviewed prior medical record in the [employer] system. Patient with a Holter monitor last March showing some periods of tachyarrhythmias as well as some periods of bradycardia. Has been taken off metoprolol related to this. Has been doing well as an outpatient. Blood pressure here does improve some but is elevated. Electrolytes basic labs were sent. Denies significant URI symptoms with COVID flu test sent given the high purulence in the community currently. Not having any significant neurological symptoms or stroke symptoms. No significant pain I doubt dissection or PE. No significant leukocytosis or anemia. No send electrolyte abnormality signs of renal dysfunction. Troponin normal. Lyme screen negative. Negative COVID flu RSV. Given her history do of concerns with the lightheadedness and palpitations if she is experiencing more of a tachy-bradycardia syndrome developing. Did recommend to her that we further monitor her on telemetry here and monitor her blood pressure. Patient was agreeable and hospitalist team contacted. DIAGNOSIS: Palpitations, hypertension DISPOSITION: Hospitalist will evaluate Patient was agreeable with this plan. Past Med/Surg History Problem List (Updated 03/13/24 @ 23:36 by Eliu Davila M.D.) Hypertension (Acute) Heart palpitations (Acute) History of palpitations Narrow complex tachycardia Tachyarrhythmia (Acute) Elevated troponin (Acute) Ankle arthritis Cough (Acute) Upper respiratory infection (Acute) Medical History (Updated 03/13/24 @ 23:36 by Eliu Davila M.D.) Asthma Hypertension Surgical History (Updated 04/18/23 @ 23:50 by Spenser Wiseman MD) H/O: hysterectomy Social History Smoking Status: Former smoker Tobacco Type: Cigarettes Preferred Language: Nigerien Communication Ability: Effective Infrastructure Security Architect Required: No Beliefs That Will Affect Care: None Feels Safe at Home: Yes Allergies Allergies Allergy/AdvReac Type Severity Reaction Status Date / Time lisinopril Allergy Mild COUGH Unverified 06/19/21 09:21 Home Meds Home Medications Medication Instructions Recorded Confirmed acetaminophen 500 mg tablet 500 mg PO Q6H PRN Pain 04/19/23 04/19/23 (Tylenol Extra Strength) ascorbic acid (vitamin C) 1,000 mg 1 g PO QAM 04/19/23 04/19/23 tablet (Vitamin C) aspirin 81 mg tablet,delayed 81 mg PO QAM 04/19/23 04/19/23 release atorvastatin 20 mg tablet 20 mg PO PM 04/19/23 04/19/23 cholecalciferol (vitamin D3) 50 50 mcg PO QAM 04/19/23 04/19/23 mcg (2,000 unit) tablet (Vitamin D3) coenzyme Q10 100 mg capsule (Co 100 mg PO QAM 04/19/23 04/19/23 Q-10) docusate sodium 100 mg capsule 100 mg PO QPM 04/19/23 04/19/23 (Colace) donepezil 10 mg tablet 10 mg PO QDL 04/19/23 04/19/23 hydrochlorothiazide 12.5 mg tablet 12.5 mg PO QAM 04/19/23 04/19/23 levothyroxine 50 mcg tablet 50 mcg PO DAILYBB 04/19/23 04/19/23 losartan 50 mg tablet 50 mg PO QAM 04/19/23 04/19/23 magnesium oxide 400 mg PO QPM 04/19/23 04/19/23 memantine 10 mg tablet 10 mg PO AMPM 04/19/23 04/19/23 [id number] 8 mg-folic 400 1 tab PO QDL 04/19/23 04/19/23 mcg-K 50 mcg-lutein 300 mcg tablet (Centrum Silver Women) vitamin E 268 mg (400 unit) capsule 268 mg PO QPM 04/19/23 04/19/23 Previous Rx's Medication Instructions Recorded metoprolol succinate 25 mg 12.5 mg (1/2 x 25 mg) PO QAM #30 04/19/23 tablet,extended release 24 hr tabs Results & Data (ED) Vital Signs Vital Signs - 24 hr 03/13/24 22:28 03/13/24 22:41 03/13/24 22:44 Temperature 36.6 C Temperature Source Temporal Artery Scan Pulse Rate 72 Pulse Rate [Apical] Pulse Rate from SpO2 Sensor Pulse Rhythm Regular Pulse Strength Normal Respiratory Rate 18 Respiratory Effort / Characteristics Non-Labored Spontaneous Respiratory Depth Normal Respiratory Pattern Blood Pressure 207/109 H 272/117 H 182/82 H Blood Pressure [Left Arm] Blood Pressure Mean 141 168 123 Blood Pressure Mean [Left Arm] Blood Pressure Position Sitting Pulse Oximetry 94 Oxygen Delivery Method Room Air Sepsis Recent Fever Within 48 Hours No Sepsis New/Unexplained Change in Mental Status N/A Sepsis Action Taken by Nursing No Action Required 03/13/24 22:47 03/13/24 22:50 03/13/24 22:50 Temperature Temperature Source Pulse Rate 57 L Pulse Rate [Apical] 60 Pulse Rate from SpO2 Sensor Pulse Rhythm Pulse Strength Respiratory Rate 18 Respiratory Effort / Characteristics Non-Labored Spontaneous Respiratory Depth Normal Respiratory Pattern Regular Blood Pressure 141/66 H Blood Pressure [Left Arm] 182/82 H Blood Pressure Mean 109 Blood Pressure Mean [Left Arm] 115 Blood Pressure Position Pulse Oximetry 94 Oxygen Delivery Method Room Air Sepsis Recent Fever Within 48 Hours Sepsis New/Unexplained Change in Mental Status Sepsis Action Taken by Nursing 03/13/24 22:51 03/13/24 22:54 03/13/24 23:00 Temperature Temperature Source Pulse Rate 57 L Pulse Rate [Apical] Pulse Rate from SpO2 Sensor 58 L Pulse Rhythm Pulse Strength Respiratory Rate 14 Respiratory Effort / Characteristics Respiratory Depth Respiratory Pattern Blood Pressure 154/68 H Blood Pressure [Left Arm] 141/66 H Blood Pressure Mean 104 Blood Pressure Mean [Left Arm] 91 Blood Pressure Position Pulse Oximetry 96 Oxygen Delivery Method Sepsis Recent Fever Within 48 Hours Sepsis New/Unexplained Change in Mental Status Sepsis Action Taken by Nursing 03/13/24 23:00 Temperature Temperature Source Pulse Rate Pulse Rate [Apical] Pulse Rate from SpO2 Sensor Pulse Rhythm Pulse Strength Respiratory Rate Respiratory Effort / Characteristics Respiratory Depth Respiratory Pattern Blood Pressure 154/68 H Blood Pressure [Left Arm] Blood Pressure Mean 104 Blood Pressure Mean [Left Arm] Blood Pressure Position Pulse Oximetry Oxygen Delivery Method Sepsis Recent Fever Within 48 Hours Sepsis New/Unexplained Change in Mental Status Sepsis Action Taken by Nursing Laboratory Data 03/13/24 22:43 03/13/24 22:43 Lab Results 03/13/24 03/13/24 Range/Units 22:43 22:45 WBC 10.71 (4.8-10.8) K/ul RBC 5.19 (4.20-5.40) M/uL Hgb 14.2 (12.0-16.0) g/dl Hct 42.9 (37.0-47.0) % MCV 82.7 (80.0-100.0) fL MCH 27.4 (25.0-34.0) pg MCHC 33.1 (32.0-36.0) g/dL RDW Std Deviation 41.0 (36.4-46.3) fL RDW Coeff of Nidia 13.7 (11.5-14.5) % Plt Count 236 (130-400) K/uL MPV 10.8 (9.4-12.4) fL Immature Gran % (Auto) 0.4 % Neut % (Auto) 70.5 % Lymph % (Auto) 24.5 % Bailey % (Auto) 3.5 % Eos % (Auto) 0.7 % Baso % (Auto) 0.4 % Neut # (Auto) 7.56 H (1.40-6.50) K/uL Lymph # (Auto) 2.62 (1.20-3.40) K/uL Bailey # (Auto) 0.38 (0.11-0.59) K/uL Eos # (Auto) 0.07 (0.00-0.50) K/uL Baso # (Auto) 0.04 (0.00-0.20) K/uL Immature Gran # (Auto) 0.04 (0.01-0.20) K/uL PT 10.4 (9.0-12.0) Seconds INR 1.0 (0.9-1.1) APTT 25 (21-31) Seconds PTT Ratio 0.9 Sodium 136 (136-145) mmol/L Potassium 3.8 (3.5-5.1) mmol/L Chloride 102 (98-107) mmol/L Carbon Dioxide 25 (21-32) mmol/L Anion Gap 9 (3-11) BUN 14 (6-23) mg/dl Creatinine 0.88 (0.6-1.2) mg/dl Est Cr Clr Drug Dosing 70.3 ml/min eGFR 68.92 BUN/Creatinine Ratio 15.9 (10-20) Glucose 114 H (70-99(Fasting)) mg/dl Calcium 10.2 (8.6-10.3) mg/dl Magnesium 2.1 (1.7-2.4) mg/dl Total Bilirubin 0.8 (0.2-1.0) mg/dl AST 26 (13-39) U/L ALT 21 (7-52) U/L Alkaline Phosphatase 100 (34-104) U/L Troponin I High Sens 6.1 (0-14) pg/ml Total Protein 7.7 (6.0-8.3) gm/dl Albumin 4.5 (3.4-5.0) gm/dl Globulin 3.2 (2.5-4.0) gm/dl Albumin/Globulin Ratio 1.4 (0.9-2) TSH 1.078 (0.300-4.500) uIu/ml Lyme Disease Screen Negative (Negative) SARS-CoV-2 (PCR) NEGATIVE (Negative) Influenza Type A (PCR) Negative (Neg) Influenza Type B (PCR) Negative (Neg) RSV (RT-PCR) Negative (Neg) Discharge Plan Visit Data Chief Complaint: Cardiac Assessment Stated Complaint: CARDIAC ASSESSMENT ED Provider: Eliu Davila Discharge Problem: Heart palpitations, Hypertension Patient Disposition: Being Evaluated by Hospitalist Forms Stand Alone Forms: [facility] Prescriptions Prescriptions: No Action aspirin 81 mg Tablet,Delayed Release (Dr/Ec) 81 mg PO QAM levothyroxine 50 mcg Tablet 50 mcg PO DAILYBB donepezil 10 mg Tablet 10 mg PO QDL vitamin E 268 mg (400 unit) Capsule 268 mg PO QPM magnesium oxide 400 mg magnesium Tablet 400 mg PO QPM atorvastatin 20 mg Tablet 20 mg PO PM memantine 10 mg Tablet 10 mg PO AMPM cholecalciferol (vitamin D3) [Vitamin D3] 50 mcg (2,000 unit) Tablet 50 mcg PO QAM losartan 50 mg Tablet 50 mg PO QAM ascorbic acid (vitamin C) [Vitamin C] 1,000 mg Tablet 1 g PO QAM acetaminophen [Tylenol Extra Strength] 500 mg Tablet 500 mg PO Q6H PRN (Reason: Pain) docusate sodium [Colace] 100 mg Capsule 100 mg PO QPM coenzyme Q10 [Co Q-10] 100 mg Capsule 100 mg PO QAM hydrochlorothiazide 12.5 mg Tablet 12.5 mg PO QAM Centrum Silver Women 8 mg iron-400 mcg-50 mcg Tablet 1 tab PO QDL metoprolol succinate 25 mg Tablet Extended Release 24 Hr 12.5 mg PO QAM Qty: 30 0RF Referrals Referrals: Gayle Torres DO [Primary Care Provider] - Discharge Problem: Hypertension Qualifiers: Hypertension type: unspecified Qualified Code(s): I10 - Essential (primary) hypertension
[2024-03-13 23:09] LABS: Basophils # (auto) 0.04 K/uL (0.00-0.20); Basophils % (auto) 0.4 %; Eosinophils # (auto) 0.07 K/uL (0.00-0.50); Eosinophils % (auto) 0.7 %; Hematocrit (blood only) 42.9 % (37.0-47.0); Hemoglobin 14.2 g/dl (12.0-16.0); Immature Granulocytes # (auto) 0.04 K/uL (0.01-0.20); Immature Granulocytes % (auto) 0.4 %; Lymphocytes # (auto) 2.62 K/uL (1.20-3.40); Lymphocytes % (auto) 24.5 %; Mean Corpuscular Hemoglobin 27.4 pg (25.0-34.0); Mean Corpuscular Hgb Conc 33.1 g/dL (32.0-36.0); Mean Corpuscular Volume 82.7 fL (80.0-100.0); Mean Platelet Volume 10.8 fL (9.4-12.4); Monocytes # (auto) 0.38 K/uL (0.11-0.59); Monocytes % (auto) 3.5 %; Neutrophils # (auto) 7.56 K/uL (1.40-6.50); Neutrophils % (auto) 70.5 %; Platelet Count 236 K/uL (130-400); RDW Coefficient of Variation 13.7 % (11.5-14.5); Red Blood Count 5.19 M/uL (4.20-5.40); White Blood Count 10.71 K/ul (4.8-10.8)
[2024-03-13 23:19] LABS: Albumin Globulin Ratio 1.4 (0.9-2); Albumin Level 4.5 gm/dl (3.4-5.0); BUN Creatinine Ratio 15.9 (10-20); Bilirubin,Total 0.8 mg/dl (0.2-1.0); Calcium 10.2 mg/dl (8.6-10.3); Creatinine Clr Calc Pharmacy 70.3 ml/min; Globulin 3.2 gm/dl (2.5-4.0); Magnesium 2.1 mg/dl (1.7-2.4); Potassium 3.8 mmol/L (3.5-5.1); Total Protein 7.7 gm/dl (6.0-8.3)
[2024-03-13 23:25] LABS: Troponin I High Sensitivity 6.1 pg/ml (0-14)
[2024-03-13 23:32] LABS: Influenza A virus by PCR Negative (Neg); Influenza B virus by PCR Negative (Neg); RSV by PCR Negative (Neg); SARS CoV2 RNA(COVID-19) Ceph NEGATIVE (Negative)
[2024-03-13 23:34] LABS: Partial Thromboplastin Ratio 0.9; Partial Thromboplastin Time 25 Seconds (21-31); Prothrombin Time 10.4 Seconds (9.0-12.0)
[2024-03-13 23:35] LABS: Thyroid Stimulating Hormone 1.078 uIu/ml (0.300-4.500)
[2024-03-14 00:11] LABS: Appearance Urine Clear (Clear); Bacteria Urine Automated None Seen (None Seen); Bilirubin Urine Negative (Negative); Blood Urine Negative (Negative); Cast Urine Automated 0-2 /lpf (0-2); Color Urine Yellow; Epithelial Cell Urine Auto 0-2 /hpf (0-2); Glucose Urine UA Negative (Negative); Ketones Urine Negative (Negative); Leukocyte Esterase Urine 1+ (Negative); Nitrite Urine Negative (Negative); Protein Urine Negative (Negative); RBC Urine Automated 0-2 /hpf (0-2); Specific Gravity Urine 1.005 (1.000-1.030); Urobilinogen Urine Negative (Negative); WBC Urine Automated 0-5 /hpf (0-5); pH Urine 7.5 (4.5-7.5)
--- NOTE | 2024-03-14 00:59 | History & Physical Report ---
Date of Service March 14, 2024 Assessment & Plan (1) Heart palpitations: Plan: Palpitations ? Hypertensive urgency ? Symptomatic bradycardia, history TBS; dementia meds contributory to bradycardia Caffeine intake and untreated SHON contributory to illness hyperlipidemia on statin Rx PVD as per records hypothyroidism, euthyroid as of today's TSH SHON/CPAP noncompliance dementia, patient at baseline mentation as per Hyperglycemia ro DM past tobacco abuse OBS PCU Titrate home losartan, add amlodipine to regimen if still uncontrolled Hold Aricept and Namenda for now given theoretical bradycardia side effects Atropine as needed symptomatic bradycardia Cardiology consult re: palpitations with episodic bradycardia, history TBS N.p.o. until seen by cardiology in anticipation of procedure Patient reeducated about need to cut down on caffeine intake. Outpatient follow-up with Sleep Medicine Check hemoglobin A1c DVT prophylaxis. SCDs re: possible procedure Full code Patient requesting updates providers. Mr. Ruel Fowler, contact #[phone]. History of Present Illness Chief Complaint: Palpitations Primary Care Provider: Gayle Torres, History obtained from patient, family, and records. Medical history significant for paroxysmal atrial tachycardia, TBS, hyperte nsion, hyperlipidemia, PVD as per records, hypothyroidism, SHON/CPAP noncompliance, dementia, Mnire's disease as per records, past tobacco abuse. Last confinement March 2023 for narrow complex tachycardia. Last night around dinnertime, patient experienced palpitations with some dizziness described as lightheadedness. No chest pain, SOB or headache symptoms. No syncope/LOC. Compliant with home medications. Denies unusual stressors at home. Still struggling to cut down on caffeine intake. Patient granddaughter who is a nurse by profession summoned to patient's home. SBP 170s, heart rate 30 to 40s as per report. Patient brought to ER for evaluation. Patient currently comfortable. 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 Allergies Allergy/AdvReac Type Severity Reaction Status Date / Time lisinopril Allergy Mild COUGH Verified 03/14/24 00:41 Home Medications Medication Instructions Recorded Confirmed Type acetaminophen 500 mg tablet 500 mg PO Q6H PRN Pain 04/19/23 03/14/24 History (Tylenol Extra Strength) ascorbic acid (vitamin C) 1,000 mg 1 g PO QAM 04/19/23 03/14/24 History tablet (Vitamin C) aspirin 81 mg tablet,delayed 81 mg PO QAM 04/19/23 03/14/24 History release atorvastatin 20 mg tablet 20 mg PO PM 04/19/23 03/14/24 History coenzyme Q10 100 mg capsule (Co 100 mg PO QAM 04/19/23 03/14/24 History Q-10) docusate sodium 100 mg capsule 100 mg PO QPM 04/19/23 03/14/24 History (Colace) donepezil 10 mg tablet 10 mg PO QDL 04/19/23 03/14/24 History hydrochlorothiazide 12.5 mg tablet 12.5 mg PO QAM 04/19/23 03/14/24 History levothyroxine 50 mcg tablet 50 mcg PO DAILYBB 04/19/23 03/14/24 History losartan 50 mg tablet 50 mg PO QAM 04/19/23 03/14/24 History magnesium oxide 400 mg PO QPM 04/19/23 03/14/24 History memantine 10 mg tablet 10 mg PO AMPM 04/19/23 03/14/24 History pcickskf-ijir-pynx 8 mg-folic 400 1 tab PO QDL 04/19/23 03/14/24 History mcg-K 50 mcg-lutein 300 mcg tablet (Centrum Silver Women) vitamin E 268 mg (400 unit) capsule 268 mg PO QPM 04/19/23 03/14/24 History cholecalciferol (vitamin D3) 25 50 mcg PO DAILY 03/14/24 03/14/24 History mcg (1,000 unit) tablet Past Med/Surg History Problem List (Updated 03/13/24 @ 23:36 by Eliu Davila M.D.) Hypertension (Acute) Heart palpitations (Acute) History of palpitations Narrow complex tachycardia Tachyarrhythmia (Acute) Elevated troponin (Acute) Ankle arthritis Cough (Acute) Upper respiratory infection (Acute) Medical History (Updated 03/13/24 @ 23:36 by Eliu Davila M.D.) Asthma Hypertension Surgical History (Updated 04/18/23 @ 23:50 by Spenser Wiseman MD) H/O: hysterectomy Social History Smoking Status: Former smoker Tobacco Type: Cigarettes Hx Alcohol Use: No Hx Substance Use: No Preferred Language: Romanian Communication Ability: Effective 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 Beliefs That Will Affect Care: None Current Living Situation: Spouse Feels Safe at Home: Yes Safety Concerns: Feels Safe At This Time Assistive Devices: None Review of Systems Review of Systems: As per HPI, all other systems reviewed and negative Physical Exam Physical Exam: GENERAL: Comfortable, obese, pleasant, no respiratory distress SKIN: Normal color, warm HEENT: [place] palpebral conjunctivae, no ptosis, moist buccal mucosa NECK : Supple, short neck, no tenderness CHEST : CTA, no tenderness HEART : Bradycardic, no obvious murmurs ABDOMEN: Some distention, nontender EXTREMITIES : Minimal LE swelling without LE tenderness, no other conspicuous deformities noted NEUROLOGIC : Oriented to month, no facial asymmetry, no other gross focality Results & Data Results & Data Vital Signs (Past 12 Hours) Vital Signs Temp Pulse Pulse Resp BP BP Pulse Ox 03/13/24 23:00 154/68 H 03/13/24 23:00 154/68 H 03/13/24 22:54 57 L 14 96 03/13/24 22:51 141/66 H 03/13/24 22:50 141/66 H 03/13/24 22:50 60 18 182/82 H 94 03/13/24 22:47 57 L 03/13/24 22:44 182/82 H 03/13/24 22:41 272/117 H 03/13/24 22:28 36.6 C 72 18 207/109 H 94 O2 Del Method 03/13/24 23:00 03/13/24 23:00 03/13/24 22:54 03/13/24 22:51 03/13/24 22:50 03/13/24 22:50 Room Air 03/13/24 22:47 03/13/24 22:44 03/13/24 22:41 03/13/24 22:28 Room Air Laboratory Results Laboratory Results WBC 10.71 K/ul (4.8-10.8) 03/13/24 22:43 RBC 5.19 M/uL (4.20-5.40) 03/13/24 22:43 Hgb 14.2 g/dl (12.0-16.0) 03/13/24 22:43 Hct 42.9 % (37.0-47.0) 03/13/24: MCV 82.7 fL (80.0-100.0) 03/13/24: MCH 27.4 pg (25.0-34.0) 03/13/24: MCHC 33.1 g/dL (32.0-36.0) 03/13/24: RDW Std Deviation 41.0 fL (36.4-46.3) 03/13/24: RDW Coeff of Nidia 13.7 % (11.5-14.5) 03/13/24: Plt Count 236 K/uL (130-400) 03/13/24: MPV 10.8 fL (9.4-12.4) 03/13/24: Immature Gran % (Auto) 0.4 % 03/13/24: Neut % (Auto) 70.5 % 03/13/24: Lymph % (Auto) 24.5 % 03/13/24: [place] % (Auto) 3.5 % 03/13/24: Eos % (Auto) 0.7 % 03/13/24: Baso % (Auto) 0.4 % 03/13/24: Neut # (Auto) 7.56 K/uL (1.40-6.50) H 03/13/24: Lymph # (Auto) 2.62 K/uL (1.20-3.40) 03/13/24: [place] # (Auto) 0.38 K/uL (0.11-0.59) 03/13/24: Eos # (Auto) 0.07 K/uL (0.00-0.50) 03/13/24: Baso # (Auto) 0.04 K/uL (0.00-0.20) 03/13/24: Immature Gran # (Auto) 0.04 K/uL (0.01-0.20) 03/13/24: PT 10.4 Seconds (9.0-12.0) 03/13/24: INR 1.0 (0.9-1.1) 03/13/24: APTT 25 Seconds (21-31) 01/14/25 22:43 PTT Ratio 0.9 03/13/24 22:43 Sodium 136 mmol/L (136-145) 03/13/24 22:43 Potassium 3.8 mmol/L (3.5-5.1) 03/13/24 22:43 Chloride 102 mmol/L (98-107) 03/13/24 22:43 Carbon Dioxide 25 mmol/L (21-32) 03/13/24 22:43 Anion Gap 9 (3-11) 03/13/24 22:43 BUN 14 mg/dl (6-23) 03/13/24 22:43 Creatinine 0.88 mg/dl (0.6-1.2) 03/13/24 22:43 Est Cr Clr Drug Dosing 70.3 ml/min 03/13/24 22:43 eGFR 68.92 03/13/24 22:43 BUN/Creatinine Ratio 15.9 (10-20) 03/13/24 22:43 Glucose 114 mg/dl (70-99(Fasting)) H 03/13/24 22:43 Calcium 10.2 mg/dl (8.6-10.3) 03/13/24 22:43 Magnesium 2.1 mg/dl (1.7-2.4) 03/13/24 22:43 Total Bilirubin 0.8 mg/dl (0.2-1.0) 03/13/24 22:43 AST 26 U/L (13-39) 03/13/24 22:43 ALT 21 U/L (7-52) 03/13/24 22:43 Alkaline Phosphatase 100 U/L (34-104) 03/13/24 22:43 Troponin I High Sens 6.1 pg/ml (0-14) 03/13/24 22:43 Total Protein 7.7 gm/dl (6.0-8.3) 03/13/24 22:43 Albumin 4.5 gm/dl (3.4-5.0) 03/13/24 22:43 Globulin 3.2 gm/dl (2.5-4.0) 03/13/24 22:43 Albumin/Globulin Ratio 1.4 (0.9-2) 03/13/24 22:43 TSH 1.078 uIu/ml (0.300-4.500) 03/13/24 22:43 Urine Color Yellow 03/13/24 22:53 Urine Appearance Clear (Clear) 03/13/24 22:53 Urine pH 7.5 (4.5-7.5) 03/13/24 22:53 Ur Specific [place] 1.005 (1.000-1.030) 03/13/24 22:53 Urine Protein Negative (Negative) 03/13/24 22:53 Urine Glucose (UA) Negative (Negative) 03/13/24 22:53 Urine Ketones Negative (Negative) 03/13/24 22:53 Urine Blood Negative (Negative) 03/13/24 22:53 Urine Nitrite Negative (Negative) 03/13/24 22:53 Urine Bilirubin Negative (Negative) 03/13/24: Urine Urobilinogen Negative (Negative) 03/13/24 22:53 Ur Leukocyte Esterase 1+ (Negative) H 03/13/24 22:53 Urine WBC (Auto) 0-5 /hpf (0-5) 03/13/24 22:53 Urine RBC (Auto) 0-2 /hpf (0-2) 03/13/24 22:53 U Hyaline Cast (Auto) 0-2 /lpf (0-2) 03/13/24 22:53 U Epithel Cells (Auto) 0-2 /hpf (0-2) 03/13/24 22:53 Urine Bacteria (Auto) None Seen (None Seen) 03/13/24 22:53 Lyme Disease Screen Negative (Negative) 03/13/24 22:43 SARS-CoV-2 (PCR) NEGATIVE (Negative) 03/13/24 22:45 Influenza Type A (PCR) Negative (Neg) 03/13/24 22:45 Influenza Type B (PCR) Negative (Neg) 03/13/24 22:45 RSV (RT-PCR) Negative (Neg) 03/13/24 22:45 Diagnostic Findings EKG as per my interpretation :Rate 65, NSR, LAD, LAFB, 1 AVB, LVH, no ischemia
[2024-03-14] MEDS ORDERED: PROMETHAZINE 6.25 MG/50.25 ML BAG IV PRN (01:01)
[2024-03-14] MEDS ORDERED: traMADol HCL 50 MG TABLET PO PRN (01:01)
[2024-03-14] MEDS ORDERED: ACETAMINOPHEN 325 MG TAB PO PRN ×2 (01:01→02:07)
[2024-03-14] MEDS ORDERED: ATROPINE SULFATE 0.1 MG/ML 10ML SYR IV PRN (01:01)
[2024-03-14] MEDS: LOSARTAN POTASSIUM 50 MG TAB PO STA (01:21)
--- NOTE | 2024-03-14 02:17 | XRay Report ---
Exam(s): XR CXR 1 VIEW EXAM: XR Chest, 1 View CLINICAL HISTORY: Reason for exam: Dysrhythmia. TECHNIQUE: Frontal view of the chest. COMPARISON: April 18, 2023 FINDINGS: Lungs: Prominent vascular and interstitial markings in the lung bases consistent with mild emphysema, similar to previous. No new infiltrate identified. Pleural space: Unremarkable. No pneumothorax. Heart: Unremarkable. No cardiomegaly. Mediastinum: Unremarkable. Normal mediastinal contour. Bones/joints: Mild osteophytosis throughout the mid to lower thoracic spine. No acute fracture. Vasculature: The aorta is mildly calcified. Upper abdomen: Unremarkable as visualized. No pneumoperitoneum under the diaphragm. IMPRESSION: Prominent vascular and interstitial markings in the lung bases consistent with mild emphysema, similar to previous. No new infiltrate identified. Electronically signed by: Eliu Joshi MD 03/14/24 02:16 AM
[2024-03-14] MEDS: hydrALAZINE HCL 20 MG/ML VIAL IV STA (04:40)
--- OUTSIDE RECORDS SUMMARY | 2024-03-14 06:32 | External Medical Summary | Summary of Care ---
Author Name Unknown Organization [facility] Address [address] [facility] [place] [address] Phone [phone] Care Team Providers Care Gun Tester Name Role Phone Gayle Torres DO Primary Care Provider [phone] Reason for Visit * Reason Onset Date Comments Health Maintenance 02/06/2024 Encounter Details Date Type Department Care Team (Late st Contact Info) Description [facility] [address] [phone] Gayle Torres DO [address] [facility] [address] Health Maintenance Allergies Active Allergy Reactions Criticality Noted Date Comments Lisinopril Cough 05/22/2010 documented as of this encounter (statuses as of 02/06/2024) Medications VITAMIN E CAPS 400 IU ORIndications:Ro utine medical exam daily qs 0 1 Active ASPIRIN 81 MG PO CHEWIndications: Paroxysmal atrial tachycardia (HCC) One pill by mouth once a day with food 100 5 8 Active VITAMIN D 1000 UNITS PO CAPS 2 capsules daily 60 Cap 11 3 Active Magnesium Oxide 400 MG Capsule Take 1 Capsule by mouth in the morning. Active Coenzyme Q-10 200 MG CAPS Take 100 mg by mouth. Active Albuterol Sulfate (ALBUTEROL HFA) 108 (90 BASE) MCG/ACT inhaler Inhale 2 Puffs by mouth 4 times a day. 6.7 g 3 0 Active Multivitamin Adult Oral Tablet Take by mouth . Active Acetaminophen 325 MG Oral Tablet (Tylenol) Take 1 Tablet by mouth every 6 hours as needed. Active Atorvastatin Calcium 20 MG Oral Tablet (Lipitor)Indicat ions:Hyperlipide sun with target LDL less than 100 TAKE ONE TABLET BY MOUTH EVERY DAY 90 Tablet 3 11/18/2023 4:34 PM EDT 4 Active Losartan Potassium 50 MG Oral Tablet (Cozaar)Indicati ons:HTN, goal below 140/90 TAKE ONE TABLET BY MOUTH EVERY DAY 90 Tablet 2 12/17/2023 8:27 AM EDT 4 Active hydroCHLOROthiaz dorene 12.5 MG Oral CapsuleIndicatio ns:HTN, goal below 140/90 TAKE ONE CAPSULE BY MOUTH EVERY DAY 90 Capsule 2 12/17/2023 8:27 AM EDT 4 Active Levothyroxine Sodium 50 MCG Oral Tablet (Levoxyl)Indicat ions:Hypothyroid ism TAKE 1 TABLET BY MOUTH DAILY AT LEAST 30 MINUTES PRIOR TO FIRST MEAL OF THE DAY OR OTHER MEDICATIONS 90 Tablet 2 12/17/2023 8:27 AM EDT 4 Active Donepezil HCl 10 MG Oral Tablet (Aricept) TAKE ONE TABLET BY MOUTH EVERY DAY WITH LUNCH 90 Tablet 3 11/07/2023 6:55 AM EDT 4 Active Memantine HCl 10 MG Oral Tablet (Namenda) Take 1 Tablet by mouth in the morning and 1 Tablet before bedtime. 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 SHON (obstructive sleep apnea) 03/23/2023 Mild late onset Alzheimer's dementia without behavioral disturbance, psychotic disturbance, mood disturbance, or anxiety 03/23/2023 Age-related osteoporosis wit hout current pathological fracture 08/04/2022 Other atherosclerosis of [place] arteries of extremities, bilateral legs 01/26/2022 Paroxysmal atrial tachycardia 01/26/2022 Hx of adenomatous colonic polyps 03/05/2021 Overview (03/05/2021): 11/04/2020: colonoscopy, serrated polyp repeat 5 years (10/2025) Class 2 severe obesity due t o excess calories with serious comorbidity and body mass index (BMI) of 38.0 to 38.9 in adult 10/24/2019 Hypothyroidism 08/06/2010 Dyslipidemia, goal LDL below 100 02/16/2010 HTN, goal below 140/90 02/16/2010 DJD, LEFT KNEE 05/08/2008 documented as of this encounter (statuses as of 02/06/2024) Resolved Problems Problem Noted Date Diagnosed Date Resolved Date Kidney disease, chronic, sta ge III (GFR 30-59 ml/min) 03/08/2016 12/15/2017 Overview: Per CKD protocol #1 Vitamin D deficiency 07/14/2011 018 Hyperlipidemia with target LDL less than 100 2 04/20/2017 Overview (06/30/2015): ICD-10 update of inactive term Body mass index (BMI) of 40.0-44.9 in adult 02/06/2010 04/20/2017 Overview (06/10/2015): ICD-10 update of inactive term Obesity, morbid (more than 1 00 lbs over ideal weight or BMI > 40) 08/12/2009 12/29/2021 Overview (05/19/2015): Per Obesity Protocol, #19 ICD-10 update of inactive term Pneumonia due to organism 05/08/2008 Overview (12/02/2015): ICD-10 update of inactive term Pain in limb 05/08/2008 04/20/2017 Cough 05/08/2008 04/20/2017 Palpitations 03/30/2007 04/20/2017 BENIGN NEOPLASM LG BOWEL 04/16/2003 MENIERE'S DISEASE NOS (Left Ear) 04/20/2017 documented as of this encounter (statuses as of 02/06/2024) Immunizations Name Administration Dates Next Due COVID-19 mRNA, LNP-s, No Pre serve, 2-Dose Series (Moderna) 05/03/2020,03/29/2020 COVID-19, mRNA, LNP-s, PF, B ooster, 100mcg/0.5mg (Moderna) 01/19/2021 Pneumococcal Conjugate Vacc, 13 Valent (Prevnar) 04/21/2016 Pneumococcal Polysaccharide PPV23 (Pneumovax) 04/07/2015 Season Influenza, Quad, PF, Adjuvanted, 65+ Yrs, IM (FLUAD) 01/18/2020 Seasonal Influenza Vac., MDV , IM, 0.5 mL (Fluzone) 12/12/2014,12/30/2011,01/18/2011,11/17 Seasonal Influenza, PF, 6 M & above, IM , (FluLaval or Fluzone) 12/21/2017,01/03/2017 Seasonal Influenza, Quadriva lent Hd (Fluzone Hd) 03/24/2023,12/10/2021,12/06/2020 Seasonal Influenza, Quadriva lent, No Preserve, IM 11/28/2015 Seasonal Influenza, Trivalen t, Adjuvanted, 65+ YRS, PF, (Fluad) 12/22/2018 TDAP (age 10 and older)(Boostrix) 02/03/2022 TDAP, Age 7 and older, IM (Adacel) 10/28/2009 Varicella Zoster Vaccine (Adult) 01/01/2014,07/30 Zoster Vaccine Recombinant (Shingrix) 08/08/2020 documented as of this encounter Social History Tobacco Use Types Packs/Day Years Used Date Smoking Tobacco: Former Cigarettes 1 12 1 - 11/28/1981 Passive Smoke Exposure: Past Smokeless Tobacco: Never Comments:1981 Alcohol Use Standard Drinks/Week Comments Yes 0 (1 standard drink = 0.6 oz pur e alcohol) Rare PHQ-2 Answer Date Recorded PHQ-2 Score 2 10/24/2019 Hunger Vital Sign Answer Date Recorded Worried About Running Out of Food in the Last Ye ar Never true 10/24/2019 Ran Out of Food in the Last Year Never true 10/24/2019 Utilities Answer Date Recorded Do you have trouble paying y our heating, water, or electric bill? (Adult - for ages 18 years and over) Not on file 08/16/2023 Is your family able to pay t he heat, water, or electric bill? (Household - for ages 0-17 years) Not on file 08/16/2023 Does your family have access to good internet? (Household - for ages 0-17 years) Not on file 08/16/2023 Social Connections Answer Date Recorded How often do you feel lonely or isolated from those around you? 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 Not on file Not on file Not on f ile Not on file Not on file Not on file Not on file documented as of this encounter Miscellaneous Notes * Telephone Encounter - Radha Tim LPN - 02/06/2024 8:37 AM EST Care Gaps Comprehensive Care Outreach Last Office/Telemedicine Visit: Visit date not found (in office), Visit date not found (telemedicine) Next Office Visit: 04/09/2024 Hemoglobin AIC Results: No results found for: "HEMOGLOBIN A1C" BP Readings from Last 1 Encounters: 10/11/23 152/80 Reviewed Health Maintenance below: Health Maintenance Topic Date Due Adult Wellness Visit Never done Zoster Vaccines (3 of 3) 10/03/2020 Depression Screening 10/23/2020 *BISPHONATE OR OTHER ACCEPTABLE MEDICATION NEEDED FOR OSTEOPOROSIS (REFER TO SMARTSET #1146) Never done Influenza Vaccine (FLU shot) (1) 10/30/2023 COVID-19 Vaccine ( season) 2023 Colorectal Cancer Screening 11/05/2023 TSH 03/24/2024 Colon 5 year Lab awv Care Gap Outreach Action Taken: Left message documented in this encounter Plan of Treatment Upcoming Encounters Date Type Department Care Team (Late st Contact Info) Description 03/30/2024 3:00 PM EST Office Visit Neurology [facility] [place] [address] [place] [address] Selma Leyva CRNP [address] [place] [address] 04/09/2024 10:30 AM EST [facility] [address] [place] [address] Gayle Torres DO [address] [facility] [place] [address] 04/17/2024 2:30 PM EST Office Visit Cardiology, [facility] [address] [facility] [address] [address] Shahla Aggarwal CRNP [address] [facility] [place], [place] [id number] Scheduled Procedures Name Priority Associated Diagnoses Date/Ti me COLONOSCOPY FLEXIBLE PROXIMAL DIAGNOSTIC Recall History of colon polyps Health Maintenance Due Date Last Done Comments Cologuard 1994 Sigmoidoscopy 1994 Fecal Occult Blood Test 05/29/2000 05/30/1999 Adult Wellness Visit 10/16/2015 Zoster Vaccines (3 of 3) 10/03/2020 021, 01/01/2014, 08/18/2012 Depression Screening 10/23/2020 10/24/2019 *BISPHONATE OR OTHER ACCEPTABLE MEDICATION NEEDED FOR OSTEOPOROSIS (REFER TO SMARTSET #1146) 08/07/2022 COVID-19 Vaccine ( season) 2023 01/19/2021, 05/03/2020, 03/29/2020 Influenza Vaccine (FLU shot) (#1) 2023 03/24/2023, 12/10/2021, 12/06/2020, Additional history exists Colonoscopy 11/05/2023 11/04/2020, 08/2020, 09/30/2015, Additional history exists Colorectal Cancer Screening 11/05/2023 TSH 03/24/2024 03/24/2023, 08/2021, 03/05/2021, Additional history exists Mammogram 07/19/2024 07/20/2023, 06/29, 07/14/2022, Additional history exists DXA Scan 09/13/2024 09/13/2022, 08/28, 10/17/2018, Additional history exists GFR 09/25/2024 09/26/2023, 03/01, 03/05/2021, Additional history exists Albumin/Creatinine Ratio 03/24/2026 03/24/2023, 12/08/2021 DTap/Tdap Vaccines (3 - Td or Tdap) 02/04/2032 02/03/2022, 10/28/2009, 04/16/2003 Pneumococcal Vaccine: 65+ Years Completed 04/21/2016, 04/07/2015 RETIRED - COLONOSCOPY-EVERY 5 YRS AGES 18-100 Discontinued 11/04/2020, 11/04/2020, 09/30/2015, Additional history exists VITAMIN D LEVEL ONCE IN A LIFETIME-USE SMARTSET# 39279 Completed 03/24/2023, 10/11/2011, 05/31/2011 HPV (Gardasil) Vaccine Aged Out No lo nger eligible based on patient's age to complete this topic Hepatitis B Vaccine Aged Out No longe r eligible based on patient's age to complete this topic MENINGOCOCCAL (MENACTRA/MENVEO) Aged Out No longer eligible based on patient's age to complete this topic documented as of this encounter Medical Devices Not on filedocumented as of this encounter Care Teams Gun Tester Relationship Specialty Start Date End Date Gayle Torres DO [address] [place] [address] PCP - General Family Medicine 09/23/15 documented as of this encounter
--- OUTSIDE RECORDS SUMMARY | 2024-03-14 06:32 | External Medical Summary | Summary of Care ---
Author Name Unknown Organization [facility] Address [address] [place] [address] Phone [phone] Care Team Providers Care Tower Excavator Operator Name Role Phone Gayle Torres DO Primary Care Provider [phone] Reason for Visit * Reason Comments Medication Refill Encounter Details Date Type Department Care Team (Late st Contact Info) Description 10/23/[address] [facility] [address] [place] [address] Tone Leyva CRNP [address] [place] [address] Allergies Active Allergy Reactions Criticality Noted Date Comments Lisinopril Cough 05/22/2010 documented as of this encounter (statuses as of 10/25/2023) Medications Medication Sig Dispensed Refills Start Date [...] EVERY DAY 90 Tablet 3 04/18/2023 Active Losartan Potassium 50 MG Oral Tablet (Cozaar)Indicatio ns:HTN, goal below 140/90 TAKE ONE TABLET BY MOUTH EVERY DAY 90 Tablet 2 06/28/2023 Active hydroCHLOROthiazi de 12.5 MG Oral CapsuleIndication s:HTN, goal below 140/90 TAKE ONE CAPSULE BY MOUTH EVERY DAY 90 Capsule 2 06/28/2023 Active Levothyroxine Sodium 50 MCG Oral Tablet (Levoxyl)Indicati ons:Hypothyroidis m TAKE 1 TABLET BY MOUTH DAILY AT LEAST 30 MINUTES PRIOR TO FIRST MEAL OF THE DAY OR OTHER MEDICATIONS 90 Tablet 2 06/28/2023 Active Donepezil HCl 10 MG Oral Tablet (Aricept) TAKE ONE TABLET BY MOUTH EVERY DAY WITH LUNCH 90 Tablet 3 08/15/2023 Active Memantine HCl 10 MG Oral Tablet (Namenda) Take 1 Tablet by mouth in the morning and 1 Tablet before bedtime. 180 Tablet 1 10/25/2023 Active Memantine HCl 10 MG Oral Tablet (Namenda) Take 1 Tablet by mouth in the morning and 1 Tablet before bedtime. Start this after finishing 5 mg tablets.. 180 Tablet 3 09/17/2022 4 Discontinue d(Refill) documented as of this encounter (statuses as of 10/25/2023) Active Problems Problem Noted Date Diagnosed Date [...] as of this encounter (statuses as of 10/25/2023) Resolved Problems Problem Noted Date Diagnosed Date [...] as of this encounter (statuses as of 10/25/2023) Immunizations Name Administration Dates Next Due COVID-19 [...] years and over) Not on file 08/16/2023 Sex and Gender Information Value Date Recorded Sex Assigned at Not on file Gender Identity Not on file Sexual Orientation Straight 10/24/2019 8: 45 AM EDT Job Start Date Occupation Industry Not on file Not on file Not on file documented as of this encounter Miscellaneous Notes * Telephone Encounter - Johnny Katz [facility] - 10/25/2023 9:15 AM EDTSigned Prescriptions: Disp Refills Memantine HCl 10 MG Oral Tablet (Namenda) 180 Ta*1 Sig: Take 1 Tablet by mouth in the morning and 1 Tablet before bedtime.Authorizing Provider: TONE LEYVAOrderblanche User: JOHNNY KATZ documented in this encounter Plan of Treatment Upcoming Encounters Date Type Department Care Team (Late st Contact Info) Description 03/30/2024 3:00 PM EST Office Visit Neurology [facility] [address] [place] [address] Tone Leyva CRNP [address] [place] [address] 04/09/2024 10:30 AM EST [facility] [address] [place] [phone] Gayle Torres DO [address] [place] [address] 04/17/2024 2:30 PM EST Office Visit Cardiology, [facility] [address] [facility] [place], [place] [address] Shahla Aggarwal CRNP [address] [facility] [address] Scheduled Procedures Name Priority Associated Diagnoses Date/Ti [...] history exists Albumin/Creatinine Ratio 03/24/2026 03/24/2023, 08/2021 DTap/Tdap Vaccines (3 - Td or Tdap) 02/04/2032 02/03/2022, 10/28/2009, 04/16/2003 Pneumococcal Vaccine: 65+ Years Completed 04/21/2016, 04/07/2015 RETIRED - COLONOSCOPY-EVERY 5 YRS AGES 18-100 Discontinued 11/04/2020, 11/04/2020, 09/30/2015, Additional history exists VITAMIN D LEVEL ONCE IN A LIFETIME-USE SMARTSET# 05993 Completed 03/24/2023, 10/11/2011, 05/31/2011 HPV (Gardasil) Vaccine [...] filedocumented as of this encounter Care Teams Tower Excavator Operator Relationship Specialty Start Date End Date Gayle Torres DO [address] [place] [facility] [place] [address] PCP - General Family Medicine 09/23/15 documented as of this encounter
--- OUTSIDE RECORDS SUMMARY | 2024-03-14 06:32 | External Medical Summary | Summary of Care ---
Author Name Unknown Organization [facility] [address] [facility] [address] Phone [phone] Care Team Providers Care Fire Protection Engineer Name Role Phone Gayle Torres DO Primary Care Provider [phone] Reason for Visit * Reason Comments Follow Up Encounter Details Date Type Department Care Team (Late st Contact Info) Description 10/11/2023 8:30 AM EDT Office Visit Cardiology, [facility] [address] [facility] [place] [id number] Shahla [facility]wal CR[facility] [address] [facility] [place] [address] Tachy-maddy syndrome (HCC)*; HTN, goal below 140/90; Hyperlipidemia, unspecified hyperlipidemia type; PAT (paroxysmal atrial tachycardia) (HCC) Allergies Active Allergy Reactions Criticality Noted Date Comments Lisinopril Cough 05/22/2010 documented as of this encounter (statuses as of 10/23/2023) Medications Medication Sig Dispensed Refills Start Date [...] mouth every 6 hours as needed. Active Memantine HCl 10 MG Oral Tablet [...] WITH LUNCH 90 Tablet 3 08/15/2023 Active fluticasone (FLONASE) 50 MCG/ACT nasal sprayIndications: Dysfunction of right eustachian tube Administer 2 Sprays into each nostril daily. 48 g 1 06/04/2019 4 Discontinue d(Patient preference/ discontinua tion) documented as of this encounter (statuses as of 10/23/2023) Active Problems Problem Noted Date Diagnosed Date [...] as of this encounter (statuses as of 10/23/2023) Resolved Problems Problem Noted Date Diagnosed Date [...] as of this encounter (statuses as of 10/23/2023) Immunizations Name Administration Dates Next Due COVID-19 [...] Sign Reading Time Taken Comments Blood Pressure 152/80 10/11/2023 8:32 AM EDT Pulse 64 10/11/2023 8:32 AM EDT Temperature - - Respiratory Rate 12 10/11/2023 8:32 AM EDT Oxygen Saturation - - Inhaled Oxygen Concentration - - Weight 111.4 kg (245 lb 8 oz) 10/11/2023 8:32 AM EDT Height - - Body Mass Index 38.45 09/26/2023 10:18 AM EDT documented in this encounter Patient Instructions * Patient Instructions* Shahla Aggarwal CRNP - 10/11/2023 8:49 AM EDT -We discussed possible symptoms of slow heart rates to look out for which may included lightheadedness, dizziness, increased fatigue, generalized weakness, and shortness of breath Reach out for sooner follow up if this occurs documented in this encounter Progress Notes * Dang Arthur DO - 10/23/2023 1:13 PM EDT I have reviewed the advanced practitioner's documentation on the date of service referenced in note, and I agree with, and take responsibility for the plan of care. Pt returns to EP routine 4 month f/u due to TBS No changes since last office visit Still active No change in cardiac medications No indication for ppm at this juncture EP f/u 6 months Dang Arthur DO Department of Cardiology [facility] [place] [address] documented in this encounter Nursing Notes * Richelle Ponce CMA - 10/11/2023 8:30 AM EDT Examination Room: 17 Name: Neyda Fowler Date of : (1950). Reason for Visit: follow up Interim Hospitalization(s): denies Problems/Concerns: denies Chest Pain/SOB: denies [facility] Discussed: Yes [facility] is a way you can talk to your provider online through e-mail. Would you like to sign up? I can activate it for you? ALREADY ACTIVE Patient was instructed to not get up on the exam table until directed and assisted by their provider; patient is to remain seated in the chair/ wheelchair/ exam table for fall prevention and safety reasons. Patient is aware to have assistance to step down off exam table with personnel. Patient voiced full comprehension of instructions. documented in this encounter Plan of Treatment Upcoming Encounters Date Type Department Care Team (Late st Contact Info) Description 03/30/2024 3:00 PM EST Office Visit Neurology [facility] [address] [place] [address] Selma Leyva CRNP [address] [place] [address] 04/09/2024 10:30 AM EST Office Visit Family [facility] [address] [place] [phone] Gayle Torres DO [address] [place] [address] 04/17/2024 2:30 PM EST Office Visit Cardiology, [facility] [address] [facility] [place] [address] Shahla Aggarwal CRNP [address] [place] [id number] Scheduled Procedures Name Priority Associated Diagnoses Date/Ti [...] D LEVEL ONCE IN A LIFETIME-USE SMARTSET# [id number] Completed 03/24/2023, 10/11/2011, 05/31/2011 HPV (Gardasil) Vaccine [...] as of this encounter Visit Diagnoses Diagnosis Tachy-maddy syndrome (HCC)- Primary Sinoatrial node dysfunction HTN, goal below 140/90 Unspecified essential hypertension Hyperlipidemia, unspecified hyperlipidemia type PAT (paroxysmal atrial tachycardia) (HCC) Paroxysmal supraventricular tachycardia documented in this encounter Care Teams Fire Protection Engineer Relationship Specialty Start Date End Date Gayle Torres DO [address] [place] [address] PCP - General Family Medicine 09/23/15 documented as of this encounter
--- OUTSIDE RECORDS SUMMARY | 2024-03-14 06:33 | External Medical Summary ---
Author Name Unknown Address Unknown Organization K01:[facility] [place] [address] [place] [address] Laboratory Report Ordering Provider Test Date Status PAGE PANTOJA 09/26/2023 11:16:43 Final Observation Date Value Abnormality Reference (Units ) Status BUN 09/26/2023 11:16:43 11 6-20 (mg/dL) Final Creatinine 09/26/2023 11:16:43 1.1 Above high normal 0.5-1.0 (mg/dL) Final Glomerular filtration rate/1.73 sq M.predicted [Volume Rate/Area] in Serum, Plasma or Blood by Creatinine-based formula (CKD-EPI) 09/26/2023 11:16:43 55 Below low normal >=60 (mL/min) Final eGFR is calculated based on the CKD-EPI 2020 equation. Sodium 09/26/2023 11:16:43 141 135-146 (m mol/L) Final Potassium 09/26/2023 11:16:43 3.7 3.5-5.1 (m mol/L) Final Cl 09/26/2023 11:16:43 101 98-107 (mm ol/L) Final CO2 09/26/2023 11:16:43 26 22-32 (mmo l/L) Final Anion gap 09/26/2023 11:16:43 14 7-15 (mmol /L) Final Glucose 09/26/2023 11:16:43 90 70-120 (mg /dL) Final Calcium 09/26/2023 11:16:43 9.9 8.4-10.2 ( mg/dL) Final Performing Location [facility] [place] [address] [place] [address]
--- OUTSIDE RECORDS SUMMARY | 2024-03-14 06:33 | External Medical Summary | Summary of Care ---
Author Name Unknown Organization [facility] Address [address] [place] [address] Phone [phone] Care Team Providers Care Bricklayer Name Role Phone Gayle Torres DO Primary Care Provider + [phone] Reason for Visit * Reason Comments Return Visit 6 mo return, no new concerns Encounter Details Date Type Department Care Team (Latest Contact Info) Description 09/26/2023 10:30 AM EDT Office Visit [place] [address] [place] [address] Gayle Torres DO [address] [place] [address] Tachy-maddy syndrome (HCC)*; HTN, goal below 140/90; Dyslipidemia, goal LDL below 100; Mild late onset Alzheimer's dementia without behavioral disturbance, psychotic disturbance, mood disturbance, or anxiety (HCC); Other specified hypothyroidism Allergies Active Allergy Reactions Criticality Noted Date Comments Lisinopril Cough 05/22/2010 documented as of this encounter (statuses as of 09/26/2023) Medications Medication Sig Dispensed Refills Start Date End Date Status VITAMIN E CAPS 400 IU ORIndications:Aba ne medical exam daily qs 0 04/21/2000 Active ASPIRIN 81 MG PO CHEWIndications:Par oxysmal atrial tachycardia (HCC) One pill by mouth once a day with food 100 5 03/14/2007 Active VITAMIN D 1000 UNITS PO CAPS 2 capsules daily 60 Cap 11 04/19/2012 Active Magnesium Oxide 400 MG Capsule Take 1 Capsule by mouth in the morning. Active Coenzyme Q-10 200 MG CAPS Take 100 mg by mouth. Active fluticasone (FLONASE) 50 MCG/ACT nasal sprayIndications:Dy sfunction of right eustachian tube Administer 2 Sprays into each nostril daily. 48 g 1 06/04/2019 Active Additional Information Patient not taking.Reported on 09/23/2023 Albuterol Sulfate (ALBUTEROL HFA) 108 (90 BASE) [...] EVERY DAY 90 Tablet 2 06/28/2023 Active hydroCHLOROthiazide 12.5 MG Oral CapsuleIndications: HTN, goal below 140/90 TAKE ONE CAPSULE BY [...] WITH LUNCH 90 Tablet 3 08/15/2023 Active documented as of this encounter (statuses as of 09/26/2023) Active Problems Problem Noted Date Diagnosed Date [...] as of this encounter (statuses as of 09/26/2023) Resolved Problems Problem Noted Date Diagnosed Date [...] as of this encounter (statuses as of 09/26/2023) Immunizations Name Administration Dates Next Due COVID-19 [...] Passive Smoke Exposure: Past Smokeless Tobacco: Never Tobacco Cessation:Counseling Given: Not Answered Comments:1981 Alcohol Use Standard Drinks/Week Comments Yes [...] Sign Reading Time Taken Comments Blood Pressure 138/80 09/26/2023 10:18 AM EDT Pulse 63 09/26/2023 10:18 AM EDT Temperature 37.1 C (98.7 F) 09/26/2023 10:18 AM E DT Respiratory Rate - - Oxygen Saturation 98% 09/26/2023 10:18 AM EDT Inhaled Oxygen Concentration - - Weight 112 kg (247 lb) 09/26/2023 10:18 AM EDT Height 170.2 cm (5' 7") 09/26/2023 10:18 AM EDT Body Mass Index 38.69 09/26/2023 10:18 AM EDT documented in this encounter Progress Notes * Gayle Torres, - 09/26/2023 10:31 AM EDT Subjective: Neyda Fowler is a 72 year old female. Chief Complaint Patient presents with Return Visit 6 mo return, no new concerns HPI: 72 year old female here today for a follow-up. Hx of Hypertension, hypothyroidism, obesity, SHON, and tachy maddy syndrome. Hospitalized in Mar for SVT and started on metoprolol. Although she stopped due to low heart rate. No re occurring heart racing. 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 Neyda does drink 2 pots of coffee per day. We suggested to cut this back. She is off metoprolol. No dizziness, chest pain, shortness of breath. She is on 2 neuro medications for her memory. She sees cardiology in September. Encouraged her to keep appt. She did see EP, and to consider pacemaker in the future. Her blood pressure is stable. No chest pain. No abdominal pain PHM: Patient Active Problem List Diagnosis DJD, LEFT KNEE Dyslipidemia, goal LDL below 100 HTN, goal below 140/90 Hypothyroidism Class 2 severe obesity due to excess calories with serious comorbidity and body mass index (BMI) of38.0 to 38.9 in adult (HCC) Hx of adenomatous colonic polyps Other atherosclerosis of atka arteries of extremities, bilateral legs (HCC) Paroxysmal atrial tachycardia ([facility]) Age-related osteoporosis without current pathological fracture SHON (obstructive sleep apnea) Mild late onset Alzheimer's dementia without behavioral disturbance, psychotic disturbance, mood disturbance, or anxiety ([facility]) Tachy-maddy syndrome ([facility]) Current Outpatient Medications Medication Sig Dispense Refill [...] MG CAPS Take 100 mg by mouth. Multivitamin Adult Oral Tablet Take by mouth . Acetaminophen 325 MG Oral Tablet (Tylenol) Take 1 Tablet by mouth every 6 hours as needed. Memantine HCl 10 MG Oral Tablet (Namenda) Take 1 Tablet by mouth in the morning and 1 Tablet beforebedtime. Start this after finishing 5 mg tablets.. 180 Tablet 3 Atorvastatin Calcium 20 MG Oral Tablet (Lipitor) TAKE ONE TABLET BY MOUTH EVERY DAY 90 Tablet 3 Losartan Potassium 50 MG Oral Tablet (Cozaar) TAKE ONE TABLET BY MOUTH EVERY DAY 90 Tablet 2 hydroCHLOROthiazide 12.5 MG Oral Capsule TAKE ONE CAPSULE BY MOUTH EVERY DAY 90 Capsule 2 Levothyroxine Sodium 50 MCG Oral Tablet (Levoxyl) TAKE 1 TABLET BY MOUTH DAILY AT LEAST 30 MINUTES PRIOR TO FIRST MEAL OF THE DAY OR OTHER MEDICATIONS 90 Tablet 2 Donepezil HCl 10 MG Oral Tablet (Aricept) TAKE ONE TABLET BY MOUTH EVERY DAY WITH LUNCH 90 Tablet 3 fluticasone (FLONASE) 50 MCG/ACT nasal spray Administer 2 Sprays into each nostril daily. (Patient not taking: Reported on 09/23/2023) 48 g 1 Albuterol Sulfate (ALBUTEROL HFA) 108 (90 BASE) MCG/ACT inhaler Inhale 2 Puffs by mouth 4 times a day. 6.7 g 3 No current facility-administered medications for this visit. Review of patient's allergies indicates: Allergen Reactions Lisinopril Cough Objective: BP 138/80 | Pulse 63 | Temp 37.1 C (98.7 F) (Tympanic) | Ht 1.702 m (5' 7") | Wt 112 kg (247 lb) | SpO2 98% | BMI 38.69 kg/m | BSA 2.3 m Physical Exam: General: alert, healthy, and no distress Heart: regular rate & rhythm, no murmur, and no gallops Lungs: chest symmetric with normal AP diameter, no chest deformities noted, no chest wall tenderness, lungs clear to auscultation Abdomen: abdomen soft, non-tender, normal bowel sounds, and no masses or organomegaly Extremities: no edema ASSESSMENT/PLAN: Tachy-maddy syndrome (HCC) (Primary) Hx of SVT, off the metoprolol. Cut back on coffee. Keep cardiology appt HTN, goal below 140/90 - BASIC METABOLIC PANEL; Future; Expected date: 09/26/2023 Stable. Dyslipidemia, goal LDL below 100 Stable. Mild late onset Alzheimer's dementia without behavioral disturbance, psychotic disturbance, mood disturbance, or anxiety (HCC) No worsening symptoms. Other specified hypothyroidism Stable. Follow Up: Return in about 6 months (around 03/28/2024) for Labs Today. | For: Labs Today Gayle Torres DO documented in this encounter Nursing Notes * Gregorio Jacques MED ASSIST - 09/26/2023 10:17 AM EDT The patient has been properly identified by confirmation of name and date of . Chief Complaint Patient presents with Return Visit 6 mo return, no new concerns documented in this encounter Plan of Treatment Upcoming Encounters Date Type Department Care Team (Late st Contact Info) Description 10/11/2023 8:30 AM EDT Office Visit Cardiology, [address] [place] [address] Shahla Aggarwal CRNP [address] [place] [address] 03/30/2024 3:00 PM EST Office Visit Neurology [facility] [address] [place] [address] Selma Leyva CRNP [address] [place] [address] 04/09/2024 10:30 AM EST Office Visit [facility] [address] [place] [address] Gayle Torres, [address] [place], [place] [phone] Pending Results Name Type Priority Associated Diagnoses Date /Time BASIC METABOLIC PANEL Lab Routine HTN, goal below 140/90 09/26/2023 11:16 AM EDT Scheduled Orders Name Type Priority Associated Diagnoses Orde r Schedule BASIC METABOLIC PANEL Lab Routine HTN, goal below 140/90 Expected: 09/26/2023 (Approximate), Expires: 09/25/2024 Scheduled Procedures Name Priority Associated Diagnoses Date/Ti nd COLONOSCOPY FLEXIBLE PROXIMAL DIAGNOSTIC Recall History of colon polyps Health Maintenance Due Date Last Done Comments Cologuard 1994 Sigmoidoscopy 1994 Fecal Occult Blood Test 05/29/2000 05/30/1999 Zoster Vaccines (3 of 3) 10/03/2020 021, 01/01/2014, 08/18/2012 Depression Screening 10/23/2020 10/24/2019 *BISPHONATE OR OTHER ACCEPTABLE MEDICATION NEEDED FOR OSTEOPOROSIS (REFER TO SMARTSET #1146) 08/07/2022 COVID-19 Vaccine ( season) 2022 01/19/2021, 05/03/2020, 03/29/2020 Influenza Vaccine (FLU shot) (#1) 2023 03/24/2023, 12/10/2021, 12/06/2020, Additional history exists Colonoscopy 11/05/2023 11/04/2020, 08/2020, 09/30/2015, Additional history exists Colorectal Cancer Screening 11/05/2023 GFR 03/24/2024 03/24/2023, 07/2021, 10/24/2019, Additional history exists TSH 03/24/2024 03/24/2023, 08/2021, 03/05/2021, Additional history exists Mammogram 07/19/2024 07/20/2023, 06/29, 07/14/2022, Additional history exists DXA Scan 09/13/2024 09/13/2022, 08/28, 10/17/2018, Additional history exists Albumin/Creatinine Ratio 03/24/2026 03/24/2023, 08/2021 DTaP,Tdap,and Td Vaccines (3 - Td or Tdap) 02/04/2032 02/03/2022, 10/28/2009, 04/16/2003 *BASELINE EKG FOR HTN Completed 05/31/2011, 010 Pneumococcal Vaccine: 65+ Years Completed 04/21/2016, 04/07/2015 RETIRED - COLONOSCOPY-EVERY 5 YRS AGES 18-100 Discontinued 11/04/2020, 11/04/2020, 09/30/2015, Additional history exists VITAMIN D LEVEL ONCE IN A LIFETIME-USE SMARTSET# [id number] Completed 03/24/2023, 10/11/2011, 05/31/2011 HPV (Gardasil) Vaccine [...] LDL below 100 Other and unspecified hyperlipidemia Mild late onset Alzheimer's dementia without behavioral disturbance, psychotic disturbance, mood disturbance, or anxiety (HCC) Other specified hypothyroidism documented in this encounter Care Teams Bricklayer Relationship Specialty Start Date End Date Gayle Torres DO [address] [place] [address] PCP - General Family Medicine 09/23/15 documented as of this encounter
--- OUTSIDE RECORDS SUMMARY | 2024-03-14 06:33 | External Medical Summary | Summary of Care ---
Author Name Unknown Organization [facility] Address [address] [place] [address] Phone [phone] Care Team Providers Care Tanning Solution Maker Name Role Phone Gayle Torres DO Primary Care Provider + [phone] Reason for Visit * Reason Comments Outpatient Testing Encounter Details Date Type Department Care Team (Late st Contact Info) Description 09/26/2023 11:20 AM EDT Laboratory [facility], [place] [address] [place] [address] [place] [address] [place] [address] HTN, goal below 140/90 Allergies Active Allergy Reactions Criticality Noted Date Comments Lisinopril Cough 05/22/2010 documented as of this encounter (statuses as of 09/26/2023) Medications Medication Sig Dispensed Refills Start Date End Date Status VITAMIN E CAPS 400 IU ORIndications:Routamy ne medical exam daily qs 0 04/21/2000 [...] 10/11/2023 8:30 AM EDT Office Visit Cardiology, [facility] [address] [facility] [place] [address] Shah[facility]wal [facility] [address] [facility] [address] 03/30/2024 3:00 PM EST Office Visit Neurology [facility] [address] [place] [address] Selma Leyva CRNP [address] [place] [address] 04/09/2024 10:30 AM EST Office Visit Family [facility] [address] [place] [phone] Gayle Torres DO [address] [place] [address] Pending Results Name Type Priority Associated Diagnoses Date /Time BASIC METABOLIC PANEL Lab Routine HTN, goal below 140/90 09/26/2023 11:16 AM EDT Scheduled Procedures Name Priority Associated Diagnoses Date/Ti [...] D LEVEL ONCE IN A LIFETIME-USE SMARTSET# [id number] Completed 03/24/2023, 10/11/2011, 05/31/2011 HPV (Gardasil) Vaccine [...] hypertension documented in this encounter Care Teams Tanning Solution Maker Relationship Specialty Start Date End Date Gayle Torres DO [address] [place] [address] PCP - General Family Medicine 09/23/15 documented as of this encounter
--- OUTSIDE RECORDS SUMMARY | 2024-03-14 06:33 | External Medical Summary | Summary of Care ---
Author Name Unknown Organization [facility] Address [address] [place] [address] Phone [phone] Care Team Providers Care Payroll Services Analyst Name Role Phone LuisGayle reyes Petar DUGAN Primary Care Provider [phone] Reason for Visit * Reason Comments Follow Up Encounter Details Date Type Department Care Team (Late st Contact Info) Description 09/23/2023 9:00 AM EDT Office Visit Neurology [facility] [address], [place] [id number] Selma Leyva CRNP [address] [place] [address] Mild late onset Alzheimer's dementia without behavioral disturbance, psychotic disturbance, mood disturbance, or anxiety (HCC)* Allergies Active Allergy Reactions Criticality Noted Date Comments Lisinopril Cough 05/22/2010 documented as of this encounter (statuses as of 09/23/2023) Medications Medication Sig Dispensed Refills Start Date [...] mouth. Active fluticasone (FLONASE) 50 MCG/ACT nasal sprayIndications: [...] WITH LUNCH 90 Tablet 3 08/15/2023 Active Metoprolol Succinate ER 25 MG Oral Tablet Extended Release 24 Hour (toPROL XL) Take 0.5 Tablets by mouth in the morning. 04/19/2023 4 Discontinue d(Patient preference/ discontinua tion) documented as of this encounter (statuses as of 09/23/2023) Active Problems Problem Noted Date Diagnosed Date [...] as of this encounter (statuses as of 09/23/2023) Resolved Problems Problem Noted Date Diagnosed Date [...] as of this encounter (statuses as of 09/23/2023) Immunizations Name Administration Dates Next Due COVID-19 [...] Sign Reading Time Taken Comments Blood Pressure 134/74 09/23/2023 9:04 AM EDT Pulse 66 09/23/2023 9:04 AM EDT Temperature 36.9 C (98.4 F) 09/23/2023 9:04 AM ED T Respiratory Rate 16 09/23/2023 9:04 AM EDT Oxygen Saturation 97% 09/23/2023 9:04 AM EDT Inhaled Oxygen Concentration - - Weight 109.4 kg (241 lb 1.6 oz) 09/23/2023 9:04 AM EDT Height - - Body Mass Index 37.76 08/04/2022 8:05 AM EDT documented in this encounter Patient Instructions * Patient Instructions* Selma Leyva CRNP - 09/23/2023 9:40 AM EDT Continue donepezil and memantine as ordered. I will contact your decal applier to ensure it is okay to continue the donepezil and confirm that she wanted you to stop the metoprolol. Would consider a referral to see sleep medicine as untreated sleep apnea will worsen memory and cognition and can increase risk of arrhythmias. Monitor driving closely. Have someone ride along with you when you're driving. Only drive locally and no driving at night. My [facility] (My Chart) With RES Software access, you can view your medical records including clinic notes and diagnostic test results, communicate with your providers, and have the ability to schedule earlier appointments if one becomes available or get on the wait list. If you trust a family or caregiver to have access to your records, you may proxy them (given them permission) to your My Chart. If interested, call [phone] for help with setting it up. documented in this encounter Progress Notes * Selma Leyva CRNP - 09/23/2023 9:00 AM EDT Images from the original note were not included. [facility] Memory [facility] Cognition [facility] Return Visit Patient: Neyda Fowler Visit date: 09/23/23 I last saw patient on 03/23/2023 She is accompanied by her granddaughter Radha . HISTORY OF PRESENT ILLNESS Ms. 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 Medical history significant for hypertension, dyslipidemia, obesity, mild SHON (sleep study years ago, not on CPAP anymore), and hypothyroidism. . Seen by Dr. Arita for neuropsychological testing on 07/03/2021 which showed: Impression at this time is one of amnestic mild cognitive impairment, with additional reduction in semantic verbal fluency. 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 Discussed Lecanemab and patient instructed to please contact office if this is something she would like to pursue Patient declined sleep study for SHON. Discussed [facility] referral for Cognitive Rehab. Patient states she would like to think about this. Avoid cognitive impairing medications, such as benzodiazepines, antihistamines, anticholinergic (e.g.e paroxetine), muscle relaxants, medications used for bladder spasm such as oxybutynin Encouraged cognitively stimulating activities like reading, socialization and puzzles. Interval history: Overall feels she's been doing about the same. Taking memantine and donepezil as ordered. Driving locally. No accidents, near misses or getting lost. Does not drive a night. Hospitalizations? Yes, admitted to [facility] from 04/19/23 for further evaluation of tachyarrhythmia Per Discharge summary: Had zio patch which showed: Final Interpretation Patient had a min HR of 38 bpm, max HR of 188 bpm, and avg HR of 60 bpm. Predominant underlying rhythm was Sinus Rhythm. First Degree AV Block was present. 40 Supraventricular Tachycardia runs occurred, the run with the fastest interval lasting 10.7 secs with a max rate of 188 bpm, the longest lasting 58.4 secs with an avg rate of 137 bpm. Isolated SVEs were rare (<1.0%), SVE Couplets were rare (<1.0%), and SVE Triplets were rare (<1.0%). Isolated VEs were rare (<1.0%), VE Couplets were rare (<1.0%), and no VE Triplets were present. Seen by Cardiology Dr. Arthur on 06/10/2023 who recommended the following: PLAN: -I reviewed the cardiac conduction system and the EGMs of the zio patch with the patient and how itrelates to her condition of TBS -I think she will need a ppm at some juncture in her lifetime but I thin we can hold off for now -We discussed possible symptoms of bradycardia to look out for which may included lightheadedness, dizziness, increased fatigue, generalized weakness, SOB/BTOELLO or recurrent sustained PAT then to reachout to be seen sooner -I do not appreciate pAF on her monitor that we need to start AC at this juncture -If she has more PAT then we would need to increase AVN blockers and then she would need a ppm prior to doing this -Continue HCTZ, losartan BP is ok -Continue ASA for now -Continue lipitor LDL is ok -EP f/u 4 months 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 yes Falls? No FUNCTIONAL ASSESSMENT: From patient From caregiver/family Comments Cecily iADLs Using the Telephone intact intact Shopping intact impaired granddaughter state she'll put something in the cart again that she already has in her cart. Food preparation intact intact having more difficulty following a recipe and cooking like she used to. Cooking easier things more than she used to Housekeeping intact intact Laundry intact intact Transportation intact intact driving locally. Medication management impaired impaired Finances intact intact [place] ADLs: Bathing intact intact Dressing intact intact Toileting intact intact Transferring (bed to chair) intact intact Continence intact intact Feeding intact intact Keeping track of calendars/appointments intact impaired Granddaughter states she's been having moretrouble. Cognition: continues to have STM problems. Forgetting conversations. Maybe a little worse. Appetite and weight: stable Exercise: walks on treadmill occasionally Sleep: has h/o SHON, not on CPAP. Refused sleep study. + snores. Feels she's sleeping well. Mood: good Psychiatric and behavior symptoms: Hallucinations: - Delusions: - Paranoia: - OBJECTIVE Medical history, surgical history, social history, allergies and medications remains unchanged. Past Medical History: Diagnosis Date Benign neoplasm of colon DJD, LEFT KNEE 05/08/2008 Family history of GI malignancy HTN, goal below 140/90 02/16/2010 Hypothyroidism 08/06/2010 Meniere's disease Pneumothorax on right at age 31. Reactive airway disease that is not asthma uses as needed albuterol inhaler when sick with URI Sleep apnea, obstructive Tachycardia, paroxysmal (HCC) isolated wide complex tachycardia-no treatment Past Surgical History: Procedure Laterality Date BIOPSY OF BREAST, OPEN 02/28/1991 lumpectomy left , benign cyst COLONOSCOPY 10/09/2007 polyps-benign, repeat 2012 COLONOSCOPY, DIAGNOSTIC (RECTUM) 06/05/2012 COLONOSCOPY FLEXIBLE PROXIMAL DIAGNOSTIC performed by Hardik Ashford MD at [facility]COPY [facility] COLONOSCOPY, DIAGNOSTIC (RECTUM) 09/30/2015 normal, repeat 5 yrs/COLONOSCOPY FLEXIBLE PROXIMAL DIAGNOSTIC performed by Estefany Spaulding DO at [facility]OSCOPY [facility] COLONOSCOPY, DIAGNOSTIC (RECTUM) 11/04/2020 serrated adenomatous polyp, repeat 3 yrs / COLONOSCOPY FLEXIBLE PROXIMAL DIAGNOSTIC performed by Estefany Spaulding DO at ENDOSCOPY [facility] COLORECTAL CANCER SCREEN; COLON 07/29/2000 polyps, repeat 08/03 DEXA BONE DENSITY SCAN INCLUDING FRACTURE ASSESSMENT 05/30/2007 nl EGD, FLEXIBLE, DIAGNOSTIC 11/25/2015 normal/ESOPHAGOGASTRODUODENOSCOPY (EGD), FLEXIBLE, TRANSORAL, DIAGNOSTIC performed by Estefany Spaulding DO at ENDOSCOPY [facility] PARTIAL HYSTERECTOMY 02/28/1979 ovaries intact, age 29, precancerous cervical cells, colpo x 2 Social History Socioeconomic History Marital status: Spouse name: Ruel Number of children: 2 Years of education: 14 Highest education level: Not on file Occupational History 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 Comment: [employer] Employer: [employer] Tobacco Use Smoking status: Former Current packs/day: 0.00 Average packs/day: 1 pack/day for 12.0 years (12.0 ttl pk-yrs) Types: Cigarettes Start date: 11/28/1969 Quit date: 11/28/1981 Years since quittin.8 Passive exposure: Past Smokeless tobacco: Never Tobacco comments: 1981 Vaping Use Vaping status: Never Used Substance and Sexual Activity Alcohol use: Yes Comment: Rare Drug use: No Sexual activity: Yes Partners: Male Comment: Other Topics Concern Service Not Asked Blood Transfusions Not Asked Caffeine Concern Not Asked Occupational Exposure Not Asked Hobby Hazards Not Asked Sleep Concern Not Asked Stress Concern Not Asked Weight Concern Not Asked Special Diet Not Asked Back Care Not Asked Exercise Not Asked Bike Helmet Not Asked Seat Belt Yes Self-Exams Not Asked Social History Narrative ; 2 healthy children; retired from [employer]. Social Determinants of Health Financial Resource Strain: Not on file Food Insecurity: No Food Insecurity (10/24/2019) Hunger Vital Sign Worried About Running Out of Food in the Last Year: Never true Ran Out of Food in the Last Year: Never true Transportation Needs: Not on file Social Connections: Unknown (08/16/2023) Social Connections How often do you feel lonely or isolated from those around you? (Adult - for ages 18 years and over): Not on file Housing Stability: Not on file Family History Problem Relation Name Age of Onset Cancer Mother colon CA, dx age 64 Cancer Father stomach Ca Cancer Other nephew 2 brain tumor, age 27 Other (Other) Daughter 10 benign brain tumor Arthritis None Review of patient's allergies indicates: Allergen Reactions Lisinopril Cough Current Outpatient Medications Medication Sig Dispense Refill Acetaminophen 325 MG Oral Tablet (Tylenol) Take 1 Tablet by mouth every 6 hours as needed. Albuterol Sulfate (ALBUTEROL HFA) 108 (90 BASE) MCG/ACT inhaler Inhale 2 Puffs by mouth 4 times a day. 6.7 g 3 ASPIRIN 81 MG PO CHEW One pill by mouth once a day with food 100 5 Atorvastatin Calcium 20 MG Oral Tablet (Lipitor) TAKE ONE TABLET BY MOUTH EVERY DAY 90 Tablet 3 Coenzyme Q-10 200 MG CAPS Take 100 mg by mouth. Donepezil HCl 10 MG Oral Tablet (Aricept) TAKE ONE TABLET BY MOUTH EVERY DAY WITH LUNCH 90 Tablet 3 fluticasone (FLONASE) 50 MCG/ACT nasal spray Administer 2 Sprays into each nostril daily. (Patient not taking: Reported on 09/23/2023) 48 g 1 hydroCHLOROthiazide 12.5 MG Oral Capsule TAKE ONE CAPSULE BY MOUTH EVERY DAY 90 Capsule 2 Levothyroxine Sodium 50 MCG Oral Tablet (Levoxyl) TAKE 1 TABLET BY MOUTH DAILY AT LEAST 30 MINUTES PRIOR TO FIRST MEAL OF THE DAY OR OTHER MEDICATIONS 90 Tablet 2 Losartan Potassium 50 MG Oral Tablet (Cozaar) TAKE ONE TABLET BY MOUTH EVERY DAY 90 Tablet 2 Magnesium Oxide 400 MG Capsule Take 1 Capsule by mouth in the morning. Memantine HCl 10 MG Oral Tablet (Namenda) Take 1 Tablet by mouth in the morning and 1 Tablet beforebedtime. Start this after finishing 5 mg tablets.. 180 Tablet 3 Multivitamin Adult Oral Tablet Take by mouth . VITAMIN D 1000 UNITS PO CAPS 2 capsules daily 60 Cap 11 VITAMIN E CAPS 400 IU OR daily qs 0 No current facility-administered medications for this visit. DATA REVIEWED: Results for orders placed or performed in visit on 03/05/21 CBC Result Value Ref Range WBC 6.86 4.00 - 10.80 K/uL RBC 4.86 3.85 - 5.15 M/uL HGB 13.4 12.0 - 15.3 g/dL HCT 43.4 36.0 - 45.2 % MCV 89.3 81.5 - 97.5 fL MCH 27.6 27.0 - 34.0 pg MCHC 30.9 (L) 32.0 - 36.0 g/dL RDW 14.0 11.5 - 15.5 % MPV 11.6 (H) 6.6 - 11.1 fL nRBCs 0 <=0 /100 WBCs PLT 216 140 - 400 K/uL Latest Reference Range & Units 03/05/21 09:52 Sodium 135 - 146 mmol/L 142 Potassium 3.5 - 5.1 mmol/L 4.5 Chloride 98 - 107 mmol/L 104 CO2 22 - 32 mmol/L 28 BUN 6 - 20 mg/dL 10 Creatinine 0.5 - 1.0 mg/dL 1.0 Estimated Glomerular Filtration Rate >=60 mL/min 58 (L) Anion Gap 7 - 15 mmol/L 10 Glucose 70 - 120 mg/dL 93 Calcium 8.4 - 10.2 mg/dL 9.9 Protein 6.0 - 8.3 g/dL 7.0 (L): Data is abnormally low Latest Reference Range & Units 02/03/22 12:35 LDL Cholesterol (Direct Measure) <=129 mg/dL 59 Results for orders placed or performed in visit on 03/05/21 LIPID PANEL WITH DIRECT LDL IF TG IS HIGH Result Value Ref Range Triglycerides 132 <=174 mg/dL Cholesterol 150 <200 mg/dL HDL Cholesterol 48 (L) >49 mg/dL Non-HDL Cholesterol 102 <=159 mg/dL LDL Cholesterol 76 <=129 mg/dL No results found for: "HEMOGLOBIN A1C" Latest Reference Range & Units 02/03/22 12:35 TSH 0.27 - 4.20 uIU/mL 1.30 T4, Free 0.9 - 1.7 ng/dL 1.3 Latest Reference Range & Units 10/11/11 09:38 25OH VITAMIN D TOTAL 30.0 - 100.0 ng/mL 29.3 (L) (L): Data is abnormally low IMAGING STUDIES: No new neuroimaging to review. PHYSICAL EXAM Vital signs: BP 134/74 | Pulse 66 | Temp 36.9 C (98.4 F) (Tympanic) | Resp 16 | Wt 109.4 kg (241 lb 1.6 oz) | SpO2 97% | BMI 37.76 kg/m | BSA 2.27 m General: Well nourished. Appears as stated age. No acute distress. HEENT: normocephalic, atraumatic. Oral mucosa pink and moist Neurologic exam Mental status: awake and alert [place] Cognitive Assessment Scores: 09/23/23 Version 8.1 03/23/2023 (Version 8.2) Visual/executive (/5) 3 4 Naming (/3) 3 3 Digits (/2) 2 2 Letter A (/1) 1 1 Serial 7 (/3) 1 2 Repetition (/2) 2 2 Letter fluency (/1) 1 1 Abstraction (/2) 2 1 Delayed recall - spontaneous (/5) 0 0 - Category cue 2 1 - Multiple choice cue 3 1 Orientation (/6) 5 5 Total (/30)* 20 21 * +1 if education ? 12 years Cranial Nerves: CN II- pupils are equally round and reactive to light bilaterally. Visual field intact in all quadrants bilaterally. CN III, IV, - Extra-ocular Movements Intact,no nystagmus CN V - Facial sensation intact and equal bilaterally CN VII - no facial assymetry CN VIII - Intact to normal conversation CN IX, X: Dysarthria: None CN XI- shoulder shrug intact bilaterally CN XII: tongue midline Motor: Bulk was Normal. Tremor: high frequency low amplitude action tremor of bilateral hands and head. No resting or postural tremor of bilateral hands Rapid alternating movements: intact with finger tapping, open-close fists, forearm pronation-supination and foot tapping b/l. Tone was normal in RLE, and LLE. Paratonia bilateral upper extremities Strength in upper extremities Lower extremities: Right Left Right Left Shoulder abduction 5/5 5/5 Hip flexion 5/5 5/5 Arm flexion 5/5 5/5 Knee flexion 5/5 5/5 Arm extension 5/5 5/5 Knee extension 5/5 5/5 Finger extension 5/5 5/5 Ankle dorsiflexion 5/5 5/5 Finger abduction 5/5 5/5 Ankle plantar flexion 5/5 5/5 Reflexes: Right Left Biceps 1+ 1+ Triceps 1+ 1+ Brachial radialis 1+ 1+ Patellar 2+ 2+ Achilles 1+ 1+ Coordination: Finger to Nose : slight dysmetria left hand Gait: steady gait with normal stride length, arm swing and normal turn. ASSESSMENT & PLAN Neyda Fowler is a 71 year old right-handed female with 12+ years of education presenting for follow up for mild dementia due to Alzheimer's (onset since at least 2020; neuropsych testing in 06/2021) without mood or behavioral disturbances. Medical history significant for hypertension, dyslipidemia, obesity, mild SHON (sleep study years ago, not on CPAP anymore, refused repeat sleep study), and hypothyroidism. Since last appointment, she had a hospitalization in March at [facility] for treatment of tachy-maddy syndrome and paroxysmal atrial tachycardia. She's being followed by cardiology. Cardiology's last note stating she will need pacemaker at some point, but have been holding off for now. She's scheduled for a follow-up with the decal applier on 10/11/2023. She's been taking donepezil and memantine as ordered. Patient feels that memory is stable. Granddaughter has noticed she's having more difficulty performing some of her IADLs (trouble shopping and putting the same things in her cart more than once, trouble with cooking-only making simple meals now and difficulty remembering appointments. Has poor short-term memory. Granddaughter Radha is her POA. All ADLs are intact. She is currently driving, only locally. No accidents, near missed or getting lost. Her daughter does ride with her sometimes and have been no driving safety concerns so far. No psychiatric symptoms. She has SHON that is untreated. Continues to declined sleep medicine referral. Educated on how untreated SHON can worsen memory and cognition and can increase risk for arrhythmias. On testing, MoCA today shows slight decline 2030 (was 21/30 at last appointment in February 2023) with points lost for cube drawing, hands of clock, calculations, delayed recall (benefited from cueing) and orientation to today's date. Findings are consistent with mild to (most likely) early moderate Alzheimer's Dementia +/- vasculardementia. No current safety issues. Recommended that patient only drive locally, no drive at dark and for family to regularly ride along with her when she's driving to monitor for any safety concerns. Will continue donepezil and memantine as ordered, though will send a message to her decal applier toensure they are okay with her continuing the donepezil due to her bradycardia. Avoid cognitive impairing medications, such as benzodiazepines, antihistamines, anticholinergic (e.g.e paroxetine), muscle relaxants, medications used for bladder spasm such as oxybutynin Encouraged cognitively stimulating activities like reading, socialization and puzzles. No diagnosis found. Plan Late Mild to early moderate late onset dementia due to Alzheimer's +/- vascular etiologies, withoutbehavioral disturbance, psychotic disturbance, mood disturbance, or anxiety See above Follow Up: Return in about 6 months (around 03/25/2024) for Clinic Visit. | For: Clinic Visit Patient Instructions Patient Instructions Continue donepezil and memantine as ordered. I will contact your decal applier to ensure it is okay to continue the donepezil and confirm that she wanted you to stop the metoprolol. Would consider a referral to see sleep medicine as untreated sleep apnea will worsen memory and cognition and can increase risk of arrhythmias. Monitor driving closely. Have someone ride along with you when you're driving. Only drive locally and no driving at night. My [facility] (My Chart) With RES Software access, you can view your medical records including clinic notes and diagnostic test results, communicate with your providers, and have the ability to schedule earlier appointments if one becomes available or get on the wait list. If you trust a family or caregiver to have access to your records, you may proxy them (given them permission) to your My Chart. If interested, call [phone] for help with setting it up. Attestation: I spent a total of 60 minutes coordinating, documenting, and providing care for this patient excluding time spent in the performance of separately billed services or time spent by another provider/QHP. ELSIE Cochran Nurse Practitioner [facility] 09/23/23 documented in this encounter Nursing Notes * Suzanne Sheppard MED ASSIST - 09/23/2023 9:02 AM EDT Chief Complaint Patient presents with Follow Up documented in this encounter Plan of Treatment Upcoming Encounters Date Type Department Care Team (Late st Contact Info) Description 09/26/2023 10:30 AM EDT Office Visit [facility] [address] [place] [address] Gayle Torres DO [address] [place] [address] 10/11/2023 8:30 AM EDT Office Visit Cardiology, [facility] [address] [facility] [place] [address] Shahla Aggarwal CRNP [address] [place] [address] 03/30/2024 3:00 PM EST Office Visit Neurology [facility] [address] [place] [address] Selma Leyva CRNP [address] [place] [address] Scheduled Procedures Name Priority Associated Diagnoses Date/Ti [...] Additional history exists Albumin/Creatinine Ratio 03/24/2026 03/24/2023, 1208/2021 DTaP,Tdap,and Td Vaccines (3 - Td or Tdap) 02/04/2032 02/03/2022, 10/28/2009, 04/16/2003 *BASELINE EKG FOR HTN Completed 05/31/2011, 010 Pneumococcal Vaccine: 65+ Years Completed 04/21/2016, 04/07/2015 RETIRED - COLONOSCOPY-EVERY 5 YRS AGES 18-100 Discontinued 11/04/2020, 11/04/2020, 09/30/2015, Additional history exists VITAMIN D LEVEL ONCE IN A LIFETIME-USE SMARTSET# [id number] Completed 03/24/2023, 10/11/2011, 05/31/2011 HPV (Gardasil) Vaccine [...] Primary documented in this encounter Care Teams Payroll Services Analyst Relationship Specialty Start Date End Date Gayle Torres DO [address] [place] [address] PCP - General Family Medicine 09/23/15 documented as of this encounter
--- OUTSIDE RECORDS SUMMARY | 2024-03-14 06:33 | External Medical Summary | Summary of Care ---
Author Name Unknown Organization [facility] Address [address] [place] [address] Phone [phone] Care Team Providers Care Tag Machine Operator Name Role Phone Gayle Torres DO Primary Care Provider [phone] Reason for Visit * Reason Comments Return Neuro Encounter Details Date Type Department Care Team (Late st Contact Info) Description 03/23/2023 4:00 PM EST Office Visit Neurology, [place] [address] [place] [address] Charlie Lima, DO [address] [place] [address] Mild late onset Alzheimer's dementia [...] mg tablets.. 180 Tablet 3 09/17/2022 Active Donepezil HCl 10 MG Oral Tablet (Aricept) TAKE ONE TABLET BY MOUTH EVERY DAY WITH LUNCH 90 Tablet 3 08/03/2022 4 Discontinue d(Refill) Atorvastatin Calcium 20 MG Oral Tablet (Lipitor)Indicati ons:Hyperlipidemi a with target LDL less than 100 TAKE ONE TABLET BY MOUTH EVERY DAY 90 Tablet 1 11/09/2022 4 Discontinue d(Refill) Losartan Potassium 50 MG Oral Tablet (Cozaar)Indicatio ns:HTN, goal below 140/90 TAKE ONE TABLET BY MOUTH EVERY DAY 90 Tablet 03/23/2023 4 Discontinue d(Refill) hydroCHLOROthiazi de 12.5 MG Oral Capsule (Hydrodiuril)Yanni cations:HTN, goal below 140/90 TAKE ONE CAPSULE BY MOUTH EVERY DAY 90 Capsule 03/23/2023 4 Discontinue d(Refill) Levothyroxine Sodium 50 MCG Oral Tablet (Levoxyl)Indicati ons:Hypothyroidis m TAKE 1 TABLET BY MOUTH DAILY AT LEAST 30 MINUTES PRIOR TO FIRST MEAL OF THE DAY OR OTHER MEDICATIONS 90 Tablet 03/23/2023 4 Discontinue d(Refill) documented as of this [...] 04/16/2013 TDAP (age 10 and older)(Boostrix) 02/03/2022 TDAP, [...] or a combination of these. Theres no mck-ygmh-fflp-all approach to cognitive rehab. The type of [...] granted on March 05, 2022 and the programmer analyst announced that thewholesale cost would be $26,500 [...] (ApoE) that prescribing providers are required to peer counselor about in regards to risk of Alzheimer's disease and how the ApoE ?4 allele can increase risk for ARIA (see below for more details). The Center of Medicare and Medicaid Services ([facility]) at that time announced that providers who submitted information through an online registry [facility] provided would have the patients considered as [...] of treatment about $7,950). There is an [facility] Patient Support website that can help patients determine their potential costs for lecanemab as well as see if they would qualify for patient assistance from [facility] which can be found at: https://www.Vidaveepatientsupport.com/hcp/leqembi There are opportunities for people with commercial (non-Medicare) insurance to potentially get somefinancial support. Information for providers and patients regarding CMS statement on broader Medicare coverage for lecanemab can be found at: https://www.cms.gov/newsroom/press-releases/statement-broader-medicare-coverage- vmmnnpf-odyqhwece-izcqhgbzn-vmg-taymmktohcq-jehmixuf The CMS NICHOL registry can be found at: https://qualitynet.cms.gov/sqqclaknsj-fys-gvcmpkcs Patients must be able and willing to have serial MRIs of the Brain, the first prior to starting lecanemab, with follow up MRI of the Brain prior to the 5th, 7th, and 14th lecanemab infusions. The FDA prescribing information for lecanemab as of September 02, 2022 can be found at: https://www.accessdata.fda.gov/drugsatfda_docs/label/2022/083942e376mmr.pdf SAFETY SUMMARY: Lecanemab may cause Amyloid Related [...] At this time it is recommended by [facility] that patients and families be made aware of this potential and that this information be providedwhen advising patients on lecanemab of the risks and benefits of tPA during an acute stroke. The following is used by neuroradiology for grading of ARIA severity: As of November 2022, [facility] patients are required to be in a clinical trial or registry for consideration of coverage. [facility] will have a registry for [facility] patients that collects the same data as requested in the CMS registry. The CMS registry identification number for Medicare patients was [id number] but on December 20, 2022 apermanent CMS registry identification number of [id number] was designated and this second number willlikely be the one to use for billing claims going forward. documented in this encounter Progress Notes * Selma Leyva CRNP - 03/23/2023 4:00 PM EST Images from the original note were not included. [facility] Cognition Program Return Visit Patient: Neyda Fowler Visit date: 03/23/2023 Dr. Lima last saw patient on 09/17/2022 She is accompanied by her granddaughter Radha [...] with additional reduction in semantic verbal fluency. Dr. 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 We also discussed the newest FDA approved monoclonal antibody against amyloid- lecanemab. I explained potential benefits and risks and provided additional information in case she is interested. It iscurrently not offered at [facility]. SHON (obstructive sleep apnea) - she does not want CPAP. She wants to lose weight by exercising and diet. Other orders - Memantine HCl 10 MG Oral Tablet (Namenda); Take 1 Tablet by mouth in the morning and 1 Tablet before bedtime. Start this after finishing 5 mg tablets.. - Memantine HCl 5 MG Oral Tablet (Namenda); Take by mouth 1 tab daily week 1, 1 tab twice daily week 2, 2 tabs in am & 1 tab in pm week 3. Interval history: Overall feels she's been doing about the same. Has tolerated addition of memantine. Taking this and donepezil as ordered Driving locally. No accidents, near misses or getting lost. Does not drive a night. Hospitalizations? No New diagnosis? No Medication changes? No Falls? Fell in her room in September. Not sure what caused the fall. Had some hip pain after fall, which resolved. Denies hitting head during fall. FUNCTIONAL ASSESSMENT: From patient From caregiver/family Comments Cecily iADLs Using the Telephone intact intact Shopping intact intact Food preparation intact intact Housekeeping intact intact Laundry intact intact Transportation intact intact Medication management impaired impaired Finances intact intact [place] ADLs: Bathing intact intact Dressing intact intact Toileting intact intact Transferring (bed to chair) intact intact Continence intact intact Feeding intact intact Keeping track of calendars/appointments intact intact QDRS 3 cognitive 3 behavioral 6 total NPI-Q 0 severity 0 caregiver distress [place] iADLs 7/8 [place] ADLs / Cognition: continues to have STM problems. Forgetting conversations. Maybe a little worse. Appetite and weight: good, wishes she didn't have such a big appetite Exercise: did start walking on treadmill again Sleep: has h/o SHON, not on CPAP. Refused sleep study. + snores. Mood: good Psychiatric and behavior symptoms: Hallucinations: [...] performed by Hardik Ashford MD at ENDOSCOPY [facility] COLONOSCOPY, DIAGNOSTIC (RECTUM) 09/30/2015 normal, repeat 5 yrs/COLONOSCOPY FLEXIBLE PROXIMAL DIAGNOSTIC performed by Estefany Spaulding DO at ENDOSCOPY [facility] COLONOSCOPY, DIAGNOSTIC (RECTUM) 11/04/2020 serrated adenomatous polyp, repeat 3 yrs / COLONOSCOPY FLEXIBLE PROXIMAL DIAGNOSTIC performed by Estefany Spaulding DO at ENDOSCOPY [facility] COLORECTAL CANCER SCREEN; COLON 07/29/2000 polyps, repeat 08/03 DEXA BONE DENSITY SCAN INCLUDING FRACTURE ASSESSMENT 05/30/2007 nl EGD, FLEXIBLE, DIAGNOSTIC 11/25/2015 normal/ESOPHAGOGASTRODUODENOSCOPY (EGD), FLEXIBLE, TRANSORAL, DIAGNOSTIC performed by Estefany Spaulding DO at ENDOSCOPY [facility] PARTIAL HYSTERECTOMY 02/28/1979 ovaries intact, age 29, precancerous cervical cells, colpo x 2 Social History Socioeconomic History Marital status: Spouse name: Ruel Number of children: 2 Years of education: 14 Highest education level: Not on file Occupational History 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 Social Determinants of Health Financial Resource Strain: Not on file Food Insecurity: No Food Insecurity (10/24/2019) Hunger Vital Sign Worried About Running Out of Food in the Last Year: Never true Ran Out of Food in the Last Year: Never true Transportation Needs: Not on file Physical Activity: Not on file Stress: Not on file Social Connections: Not on file Intimate Partner Violence: Not on file Housing Stability: Not on file Family History Problem Relation Age of Onset Cancer Mother colon CA, dx age 64 Cancer Father stomach Ca Cancer Other 2 brain tumor, age 27 Other (Other) [...] BY MOUTH EVERY DAY 90 Tablet 1 Coenzyme Q-10 200 MG CAPS Take 100 mg by mouth. Donepezil HCl 10 MG Oral Tablet (Aricept) TAKE ONE TABLET BY MOUTH EVERY DAY WITH LUNCH 90 Tablet 3 fluticasone (FLONASE) 50 MCG/ACT nasal spray Administer 2 Sprays into each nostril daily. 48 g 1 hydroCHLOROthiazide 12.5 MG Oral Capsule (Hydrodiuril) TAKE ONE CAPSULE BY MOUTH EVERY DAY 90 Capsule 0 Levothyroxine Sodium 50 MCG Oral Tablet (Levoxyl) TAKE 1 TABLET BY MOUTH DAILY AT LEAST 30 MINUTES PRIOR TO FIRST MEAL OF THE DAY OR OTHER MEDICATIONS 90 Tablet 0 Losartan Potassium 50 MG Oral Tablet (Cozaar) TAKE ONE TABLET BY MOUTH EVERY DAY 90 Tablet 0 Magnesium Oxide 400 MG Capsule Take 1 [...] is abnormally low IMAGING STUDIES: No new brain imaging. DEXA scan, 09/13/22: "Fracture risk is based on current National Osteoporosis Foundation (www.nof.org) Clinicians Guide and [place] Association of Clinical Endocrinology (AACE) Guidelines (www.aace.com) and the application of current WHO FRAX tool (https://www.alison.ac.uk/FRAX/) as well as the 2017 [place] College of Rheumatology Glucocorticoid Induced Osteoporosis (GIOP) Guidelines (rheumatology.org/Practice-Qu ality/Clinical-Support/Avvpxdfx-Cggcbysc-Cmnxxnylji) using Bone mineral density derived T-scores and clinical risk factors obtained from the patient questionnaire. 1. The fracture risk is LOW/MODERATE (does not meet NOF criteria for treatment) 2. The quality of the examination is GOOD. 3. No previous study for comparison." PHYSICAL EXAM PHYSICAL EXAM Vital signs: There were no vitals taken for this visit. General: Well nourished. Appears as stated age. No acute distress. HEENT: normocephalic, atraumatic. Oral mucosa pink and moist Neurologic exam Mental status: awake and alert Challenge Cognitive Assessment Scores: 01/05/2023 (Version 8.2) Visual/executive (/5) 4 Naming (/3) 3 Digits (/2) 2 Letter A (/1) 1 Serial 7 (/3) 2 Repetition (/2) 2 Letter fluency (/1) 1 Abstraction (/2) 1 Delayed recall - spontaneous (/5) 0 - Category cue 1 - Multiple choice cue 1 Orientation (/6) 5 Total (/30)* 21 * +1 if education ? 12 [...] foot tapping b/l. Tone was normal in RUE, LUE, RLE, and LLE. Strength in upper extremities Lower extremities: Right Left Right Left Shoulder abduction 5/5 5/5 Hip flexion 5/5 5/5 Arm flexion 5/5 5/5 Knee flexion 5/5 5/5 Arm extension 5/5 5/5 Knee extension 5/5 5/5 Finger extension 5/5 5/5 Ankle dorsiflexion 5/5 5/5 Finger abduction 5/5 5/5 Ankle plantar flexion 5/5 5/5 Reflexes: Right Left Biceps 2+ 2+ Triceps 2+ 2+ Brachial radialis 2+ 2+ Patellar 2+ 2+ Achilles 1+ 1+ Pacheco Babinski Coordination: Finger to Nose : slight dysmetria left hand Gait: Rise from chair: intact, Romberg: negative, and steady gait with normal stride length, arm [...] sleep study), and hypothyroidism. Since last appointment, she's been doing well on addition of memantine. Overall feels that memory has been stable. Continues to have STM problems. All ADLs are intact. IADLs intact except for medication management. She is currently driving, only locally. No accidents, near missed or getting lost. No psychiatric symptoms. On testing, MoCA remains stable compared to 09/17/2022 () with points lost for chair drawing, abstraction, and delayed recall (only benefited slightly from cueing). Findings are consistent with mild Alzheimer's Dementia. No current safety issues. Recommended that patient only drive locally, no drive at dark and for family to regularly ride along with her when she's driving to monitor for any safety concerns. Will continue donepezil and memantine as ordered. Had discussion with patient and her granddaughter in regards to Lecanemab infusions and requirements for this infusion. Provided printed information about Lecanemab infusions as well. Patient states she would like to think about these infusions and will contact the office if this is something she would like to pursue. I also discussed possibly [facility] WORKER referral for cognitive rehabilitation. Patient states she would like to think about it and will let me know. ICD-10-CM 1. 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 Discussed Lecanemab and patient instructed to please contact office if this is something she would like to pursue Patient declined sleep study for SHON. Discussed C[facility] WORKER referral for Cognitive Rehab. Patient states she would like to think about this. Avoid cognitive impairing medications, such as benzodiazepines, antihistamines, anticholinergic (e.g.e paroxetine), muscle relaxants, medications used for bladder spasm such as oxybutynin Encouraged cognitively stimulating activities like reading, socialization and puzzles. Follow Up: Return in about 6 months (around 09/21/2023) for Clinic Visit follow- up [facility]. | For: Clinic Visit follow-up [facility] Patient Instructions Patient Instructions Please continue donepezil and memantine as ordered. [...] or a combination of these. Theres no cyf-ircw-rswr-all approach to cognitive rehab. The type of [...] granted on March 05, 2022 and the programmer analyst announced that thewholesale cost would be $26,500 [...] (ApoE) that prescribing providers are required to peer counselor about in regards to risk of Alzheimer's disease and how the ApoE ?4 allele can increase risk for ARIA (see below for more details). The Center of Medicare and Medicaid Services ([facility]) at that time announced that providers who [...] of treatment about $7,950). There is an [employer] Patient Support website that can help patients determine their potential costs for lecanemab as well as see if they would qualify for patient assistance from [employer] which can be found at: https://www.Authorea.TotalTakeout/hcp/leqembi There are opportunities for people with commercial (non-Medicare) insurance to potentially get somefinancial support. Information for providers and patients regarding CMS statement on broader Medicare coverage for lecanemab can be found at: https://www.cms.gov/newsroom/press-releases/statement-broader-medicare-coverage- erjyiwi-fllafeodd-vxanzmowj-jmt-jmsgrxapgdp-ceoyozse The [facility] NICHOL registry can be found at: https://qualitynet.cms.gov/xesgmhcbnl-eel-xnyxvqzz Patients must be able and willing to have serial MRIs of the Brain, the first prior to starting lecanemab, with follow up MRI of the Brain prior to the 5th, 7th, and 14th lecanemab infusions. The FDA prescribing information for lecanemab as of September 02, 2022 can be found at: https://www.accessdata.fda.gov/drugsatfda_docs/label/2022/302702b829iif.pdf SAFETY SUMMARY: Lecanemab may cause Amyloid Related [...] At this time it is recommended by [employer] that patients and families be made aware of this potential and that this information be providedwhen advising patients on lecanemab of the risks and benefits of tPA during an acute stroke. The following is used by neuroradiology for grading of ARIA severity: As of November 2022, [employer] [facility] patients are required to be in a clinical trial or registry for consideration of coverage. [employer] will have a registry for [employer] patients that collects the same data as requested in the CMS registry. The CMS registry identification number for Medicare patients was [id number] but on December 20, 2022 apermanent CMS registry identification number of [id number] was designated and this second number willlikely be the one to use for billing claims going forward. Attestation: I spent a total of 80 minutes coordinating, documenting, and providing care for this patient excluding time spent in the performance of separately billed services or time spent by another provider/QHP. ELSIE Cochran Nurse Practitioner [facility] 03/23/2023 documented in this encounter Plan of Treatment Upcoming Encounters Date Type Department Care Team (Late st Contact Info) Description 09/26/2023 10:30 AM EDT Office Visit [place] [address] [place] [id number] Gayle Torres DO [address] [place] [address] 10/11/2023 8:30 AM EDT Office Visit Cardiology, [facility] [address] [facility] [place] [address] Shahla Aggarwal CRNP [address] [facility] [place] [id number] Scheduled Procedures Name Priority Associated Diagnoses Date/Ti [...] 12/06/2020, Additional history exists Colonoscopy 11/05/2023 11/04/2020, 090 08/2020, 09/30/2015, Additional history exists Colorectal Cancer Screening 11/05/2023 GFR 03/24/2024 03/24/2023, 07/2021, 10/24/2019, Additional history exists TSH 03/24/2024 03/24/2023, 1208/2021, 03/05/2021, Additional history exists Mammogram 07/19/2024 07/20/2023, [...] D LEVEL ONCE IN A LIFETIME-USE SMARTSET# [id number] Completed 03/24/2023, 10/11/2011, 05/31/2011 HPV (Gardasil) Vaccine [...] Primary documented in this encounter Care Teams Tag Machine Operator Relationship Specialty Start Date End Date Gayle Torres DO [address] [place] [id number] PCP - General Family Medicine 09/23/15 documented as of this encounter
[2024-03-14] MEDS: LEVOTHYROXINE SODIUM 50 MCG TABLET PO SCH (06:51)
[2024-03-14 07:53] LABS: Estimated Average Glucose 123 mg/dl; Hemoglobin A1C 5.9 % (4.5-5.6)
[2024-03-14] MEDS: LOSARTAN POTASSIUM 50 MG TAB PO SCH (08:49)
[2024-03-14] MEDS: ASPIRIN 81 MG ECTAB PO SCH (08:49)
--- NOTE | 2024-03-14 09:03 | Cardiology Consultation ---
Date of Consultation March 14, 2024 Assessment & Plan (1) Heart palpitations: (2) Hypertension: Plan Assessment: 73 year old female with known Tachy-Soham syndrome, with Paroxysmal atrial tachycardia that presented to the ER after complaints of palpitations and lightheadedness. Plan: Heart palpitations: -patient with known history of Tachy-soham syndrome and PAT, no longer on AV jorge l blocking agents. Follows with Dr. Arthur outpatient. -patient unable to recall having palpitations yesterday. Granddaughter states that when she had checked grandmothers pulse it was low 40-50, but patient was hypertensive. EKG upon arrival to the ED shows SR with 1st degree AV block. -Review of telemetry demonstrates rates 50-65 with a rare rate of 49, non- sustained and asymptomatic. No sinus pause, no high grade heart block and no tachycardic events. Namenda to remain on hold at this time. patient will be following with Neurology outpatient in the next week. -We will continue to monitor on telemetry, if no documented bradycardic events and no recurrence of symptoms, would recommend protracted cardiac monitoring outpatient. Hypertension: -Hypertensive upon arrival 194/99, since trended downward and has remained well controlled 110-120/70's. -Continue Losartan 50mg by mouth twice daily. Case has been discussed with Dr. Gomez. Further recommendations regarding plan of care as per his assessment. I spent a total of 40 minutes on the date of service in preparation, delivery, documentation of the care provided to the patient excluding any time spent in the performance of separately billed services. ELSIE Farmer [facility] Cardiology [facility] Supervising Physician Co-Signing Physician Notes Attending attestation: Case reviewed with the advanced practitioner. I have personally performed a history and physical examination on the patient. I have reviewed the advanced practitioner's documentation on the date of service referenced in note, and I agree with, and take responsibility for the plan of care. Telemetry reveals sinus rhythm with first-degree AV block in the 50s to 60s. No significant arrhythmias. Continue treatment aspirin, atorvastatin, losartan. Avoiding AV jorge l blockers due to baseline bradycardia. No indication for permanent pacemaker felt to be indicated at this time. Spoke to patient's daughter, Elsi, who is a nurse. Will plan on having the patient come in for an outpatient 7 day Zio Patch to be place in our office so we have the results in advance of her March 2024 EP follow-up visit. 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 I spent a total of 25 minutes coordinating, documenting, and providing care for this patient excluding time spent in the performance of separately billed services or time spent by another provider. Hernandez Gomez DO History of Present Illness Reason for Consultation: palpitations, bradycardia Requesting Physician: Robin gentile Attending Physician: Godwin Palacios MD History of Present Illness HPI: patient is a 73 year old female with PMHx for PAT, tachybrady syndrome, HTN, HLD, PVD, SHON non-compliant on CPAP, dementia and menier's disease that presents to the ER with complaints of palpitations that started last evening around dinner time. Reports associated lightheadedness. Important to note that patient has some cognitive decline s/t her dementia. Granddaughter is present today, a nurse and has been very helpful to put together the pieces. Upon seeing patient today, she is resting comfortably in bed without complaint. Patient states that she just "didn't feel well" yesterday, but could not provide any details of what was wrong. she says she just does not remember. Patient denies any chest pain, pressure, palpitations, denies shortness of breath, PND, pre-syncope, syncope or edema. Denies lightheadedness or dizziness. EKG on admission SR with 1st degree AVB, LAFB, Rate 63bpm. Chest xray: IMPRESSION: Prominent vascular and interstitial markings in the lung bases consistent with mild emphysema, similar to previous. No new infiltrate identified. Troponin negative x1 Echocardiogram pending Review of telemetry shows SR/SB, lowest recorded rate 49bpm, non-sustained, typically 50-65bpm. No ectopy arrhythmia, no profound bradycardia, no sinus pause and no high grade heartblock noted. Of note, patient is on Namenda due to her cognitive decline, this is known to cause bradycardia and has been held since arrival yesterday. Allergies Allergy/AdvReac Type Severity Reaction Status Date / Time lisinopril Allergy Mild COUGH Verified 03/14/24 00:41 Home Medications Medication Instructions Recorded Confirmed Type acetaminophen 500 mg tablet 500 mg PO Q6H PRN Pain 04/19/23 03/14/24 History (Tylenol Extra Strength) ascorbic acid (vitamin C) 1,000 mg 1 g PO QAM 04/19/23 03/14/24 History tablet (Vitamin C) aspirin 81 mg tablet,delayed 81 mg PO QAM 04/19/23 03/14/24 History release atorvastatin 20 mg tablet 20 mg PO PM 04/19/23 03/14/24 History coenzyme Q10 100 mg capsule (Co 100 mg PO QAM 04/19/23 03/14/24 History Q-10) docusate sodium 100 mg capsule 100 mg PO QPM 04/19/23 03/14/24 History (Colace) donepezil 10 mg tablet 10 mg PO QDL 04/19/23 03/14/24 History hydrochlorothiazide 12.5 mg tablet 12.5 mg PO QAM 04/19/23 03/14/24 History levothyroxine 50 mcg tablet 50 mcg PO DAILYBB 04/19/23 03/14/24 History losartan 50 mg tablet 50 mg PO QAM 04/19/23 03/14/24 History magnesium oxide 400 mg PO QPM 04/19/23 03/14/24 History memantine 10 mg tablet 10 mg PO AMPM 04/19/23 03/14/24 History hmajwovn-[id number]-gxyh 8 mg-folic 400 1 tab PO QDL 04/19/23 03/14/24 History mcg-K 50 mcg-lutein 300 mcg tablet (Centrum Silver Women) vitamin E 268 mg (400 unit) capsule 268 mg PO QPM 04/19/23 03/14/24 History cholecalciferol (vitamin D3) 25 50 mcg PO DAILY 03/14/24 03/14/24 History mcg (1,000 unit) tablet Patient History Medical History (Updated 03/13/24 @ 23:36 by Eliu Davila M.D.) Asthma Hypertension Surgical History (Updated 04/18/23 @ 23:50 by Spenser Wiseman MD) H/O: hysterectomy Social History Smoking Status: Former smoker Tobacco Type: Cigarettes Hx Alcohol Use: No Hx Substance Use: No Preferred Language: Yoruba Communication Ability: Effective Clerical Adjuster Required: No Beliefs That Will Affect Care: None Current Living Situation: Spouse Feels Safe at Home: Yes Safety Concerns: Feels Safe At This Time Assistive Devices: None Review of Systems Review of Systems: All systems reviewed & are unremarkable except as noted in HPI & below Physical Exam Constitutional: well developed, well nourished and + overweight ENMT: Ears: + hearing impairment (reduced hearing in right ear) Neck: normal visual inspection and trachea midline Cardiovascular: Rate/Rhythm: regular rhythm and + bradycardic (occasional readings in the 50's) Heart Sounds: normal S1 and normal S2; no murmur Vessels: no JVD Extremities: no edema Skin: no rashes, warm and dry Psychiatric: A+Ox3, euthymic affect (struggles with event that led to the hospitalization ) Results & Data Vital Signs (Past 12 Hours) Vital Signs Temp Pulse Pulse Resp BP BP Pulse Ox 03/14/24 08:11 36.7 C 55 L 20 111/68 95 03/14/24 04:01 36.6 C 51 L 16 120/74 95 03/14/24 02:07 36.3 C L 62 18 190/82 H 96 03/14/24 02:04 60 03/14/24 01:42 60 17 156/71 H 94 03/14/24 01:09 59 L 14 191/99 H 98 03/14/24 00:30 56 L 17 184/130 H 96 03/14/24 00:00 51 L 15 159/84 H 96 03/13/24 23:39 57 L 15 143/66 H 96 03/13/24 23:00 154/68 H 03/13/24 23:00 154/68 H 03/13/24 22:54 57 L 14 96 03/13/24 22:51 141/66 H 03/13/24 22:50 141/66 H 03/13/24 22:50 60 18 182/82 H 94 03/13/24 22:47 57 L 03/13/24 22:44 182/82 H 03/13/24 22:41 272/117 H 03/13/24 22:28 36.6 C 72 18 207/109 H 94 O2 Del Method 03/14/24 08:11 Room Air 03/14/24 04:01 Room Air 03/14/24 02:07 Room Air 03/14/24 02:04 03/14/24 01:42 03/14/24 01:09 03/14/24 00:30 03/14/24 00:00 03/13/24 23:39 03/13/24 23:00 03/13/24 23:00 03/13/24 22:54 03/13/24 22:51 03/13/24 22:50 03/13/24 22:50 Room Air 03/13/24 22:47 03/13/24 22:44 03/13/24 22:41 03/13/24 22:28 Room Air Laboratory Results Cardiac Enzymes 03/13/24 Range/Units 22:43 AST 26 (13-39) U/L Troponin I High Sens 6.1 (0-14) pg/ml Coagulation 03/13/24 Range/Units 22:43 PT 10.4 (9.0-12.0) Seconds APTT 25 (21-31) Seconds CBC 03/13/24 Range/Units 22:43 WBC 10.71 (4.8-10.8) K/ul RBC 5.19 (4.20-5.40) M/uL Hgb 14.2 (12.0-16.0) g/dl Hct 42.9 (37.0-47.0) % Plt Count 236 (130-400) K/uL Neut # (Auto) 7.56 H (1.40-6.50) K/uL Lymph # (Auto) 2.62 (1.20-3.40) K/uL [place] # (Auto) 0.38 (0.11-0.59) K/uL Eos # (Auto) 0.07 (0.00-0.50) K/uL Baso # (Auto) 0.04 (0.00-0.20) K/uL Comprehensive Metabolic Panel 03/13/24 Range/Units 22:43 Sodium 136 (136-145) mmol/L Potassium 3.8 (3.5-5.1) mmol/L Chloride 102 (98-107) mmol/L Carbon Dioxide 25 (21-32) mmol/L BUN 14 (6-23) mg/dl Creatinine 0.88 (0.6-1.2) mg/dl Glucose 114 H (70-99(Fasting)) mg/dl Calcium 10.2 (8.6-10.3) mg/dl AST 26 (13-39) U/L ALT 21 (7-52) U/L Alkaline Phosphatase 100 (34-104) U/L Total Protein 7.7 (6.0-8.3) gm/dl Albumin 4.5 (3.4-5.0) gm/dl Intake and Output 03/13/24 03/14/24 03/14/24 22:59 06:59 14:59 Other: Other Intake Source Patient is NPO Weight 109.5 kg 111 kg Weight Measurement Method Chair Scale Standing Scale Diagnostic Findings Echocardiogram 04/19/23 NOrmal LV wall thickness No regional wall motion abnormalities LVEF 55-60% Grade I diastolic dysfunction No significant valvular disease. (2) Hypertension Hypertension type: unspecified Qualified Code(s): I10 - Essential (primary) hypertension
[2024-03-14] MEDS: CEROVITE ADV FORMULA TAB PO SCH (10:59)
[2024-03-14 12:30] VITALS: BP 136/75; PULSE 52; RESP 18; TEMP 97.9; O2SAT 94
--- NOTE | 2024-03-14 14:59 | Discharge Summary ---
Date of Service March 14, 2024 Admission HPI Per Admitting Provider History obtained from patient, family, and records. Medical history significant for paroxysmal atrial tachycardia, TBS, hypertension, hyperlipidemia, PVD as per records, hypothyroidism, SHON/CPAP noncompliance, dementia, Mnire's disease as per records, past tobacco abuse. Last confinement March 2023 for narrow complex tachycardia. Last night around dinnertime, patient experienced palpitations with some dizz iness described as lightheadedness. No chest pain, SOB or headache symptoms. No syncope/LOC. Compliant with home medications. Denies unusual stressors at home. Still struggling to cut down on caffeine intake. Patient granddaughter who is a nurse by profession summoned to patient's home. SBP 170s, heart rate 30 to 40s as per report. Patient brought to ER for evaluation. Patient currently comfortable. 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 Admission Exam Per Admitting Provider GENERAL: Comfortable, obese, pleasant, no respiratory distress SKIN: Normal color, warm HEENT: [place] palpebral conjunctivae, no ptosis, moist buccal mucosa NECK : Supple, short neck, no tenderness CHEST : CTA, no tenderness HEART : Bradycardic, no obvious murmurs ABDOMEN: Some distention, nontender EXTREMITIES : Minimal LE swelling without LE tenderness, no other conspicuous deformities noted NEUROLOGIC : Oriented to month, no facial asymmetry, no other gross focality Principal Diagnosis Palpitations Discharge Exam Constitutional: WD/WN, vitals as above, NAD, sitting up in bed, pleasant, conversing easily Respiratory: normal respiratory effort, lungs clear to auscultation, no wheeze, rales, rhonchi. Normal insp/exp effort, no accessory muscle use Cardiovascular: RRR, no murmur, no edema Vessels: no JVD or carotid bruit Chest: normal inspection of chest Abdomen: normal bowel sounds, soft, nontender, no hepatosplenomegaly Musculoskeletal: no cyanosis or clubbing, extremities motor strength 5/5 Skin: no rashes, warm and dry normal turgor Neurologic: PERRL, EOMI, accommodation nl, no face palsy, no dysarthria CN's II- XI intact bilaterally and moves all extremities Psychiatric: A+Ox3, euthymic affect Discharge Data Allergies Allergy/AdvReac Type Severity Reaction Status Date / Time lisinopril Allergy Mild COUGH Verified 03/14/24 00:41 Consultations 03/14/24 00:01 ED Decision to Admit Stat 03/14/24 02:07 Consult Cardiology Routine Hospital Course (1) Heart palpitations: Plan Patient is a 73-year-old female with past medical history of tachybradycardia syndrome, paroxysmal atrial fibrillation who presented to the hospital with palpitation and lightheadedness. Patient was admitted for further evaluation. Telemetry during the hospitalization revealed sinus rhythm with first-degree AV block with heart rate in 50s to 60s with no significant arrhythmia. As per cardiology, patient will have 7-day Zio patch as outpatient and patient will have follow-up with EP. Patient was discharged home; appointment with primary care was also made. Patient denied any recurrence of the symptoms during the hospitalization. Please note the above document was generated using voice recognition software. It may contain grammatical, syntax or spelling errors. Any formal questions or concerns about the content, text or information contained within the body of this dictation should be directly addressed to the provider for clarification Total Time Total Time Spent Total Time Spent (In Minutes): 35 Total Time Includes: Examination of the Patient, Discharge Planning, Medication Reconciliation, Communication With Other Providers and Other Discharge Plan Discharge Items Patient Disposition: Home - Self-Care Reason For Visit: PALPITATIONS Discharge Diagnosis: Palpitations Activity: Resume your previous activity Non-emergency contact: Primary Care Provider Call non-emergency contact if: you have any medication questions and your symptoms worsen Follow-up/Referrals: Gayle Torres DO [Primary Care Provider] - Diet: Regular Addtl Attending Provider Instructions: You were admitted to the hospital due to palpitation. Your evaluated by cardiology during the hospitalization; they will set up outpatient vehicle monitor technician for you to evaluate your heart rate/rhythm. For the time being, donepezil is kept on hold as they can interfere with heart rate. An appointment will be made for you with your primary care doctor for follow-up next week. Pending Studies at Discharge: No Stand-Alone Forms: My [employer], Smoking Cessation Medications and DC Order Prescriptions: Continued cholecalciferol (vitamin D3) 25 mcg (1,000 unit) Tablet 50 mcg PO DAILY Rx Instructions: TAKE TWO TABLETS DAILY aspirin 81 mg Tablet,Delayed Release (Dr/Ec) 81 mg PO QAM levothyroxine 50 mcg Tablet 50 mcg PO DAILYBB vitamin E 268 mg (400 unit) Capsule 268 mg PO QPM magnesium oxide 400 mg magnesium Tablet 400 mg PO QPM atorvastatin 20 mg Tablet 20 mg PO PM memantine 10 mg Tablet 10 mg PO AMPM losartan 50 mg Tablet 50 mg PO QAM ascorbic acid (vitamin C) [Vitamin C] 1,000 mg Tablet 1 g PO QAM acetaminophen [Tylenol Extra Strength] 500 mg Tablet 500 mg PO Q6H PRN (Reason: Pain) docusate sodium [Colace] 100 mg Capsule 100 mg PO QPM coenzyme Q10 [Co Q-10] 100 mg Capsule 100 mg PO QAM hydrochlorothiazide 12.5 mg Tablet 12.5 mg PO QAM Centrum Silver Women 8 mg iron-400 mcg-50 mcg Tablet 1 tab PO QDL Held donepezil 10 mg Tablet 10 mg PO QDL Hold Instructions: Resume on 03/19/24. Discharge Orders: Discharge Order (Routine); Ordered 03/14/24 Ordered By: Godwin Palacios Admission Data Admit Date/Time: 03/14/24 01:00 Attending Provider: Godwin Palacios Admit Provider: Sim Lopez Primary Care Provider: Gayle Torres Other Providers: Shahla Aggarwal; Hernandez Gomez; Rajesh Lynne; Reggie Torres; Ron Reed; Meng Miller; Rosina Lutz; Dang Arthur; Katt Meza; Shahla Maxwell; Hieu Chen; Deng Sparks; Diana Real; Lita Garcia; Danitza Mcfadden; Deidre Duran; Rory Hernandez; Ruth Kahn; Suzie Patton; Sim Lopez
[2024-03-14] MEDS ORDERED: DOCUSATE SODIUM 100 MG CAP PO SCH (21:00)
[2024-03-14] MEDS ORDERED: ATORVASTATIN 20 MG TAB PO SCH (21:00)
--- NOTE | 2024-03-16 22:28 | Electrocardiogram Report ---
Test Reason : Blood Pressure : */* mmHG Vent. Rate : 63 BPM Atrial Rate : 63 BPM P-R Int : 238 ms QRS Dur : 108 ms QT Int : 418 ms P-R-T Axes : 67 -63 49 degrees QTcB Int : 427 ms Sinus rhythm with 1st degree A-V block Left anterior fascicular block Moderate voltage criteria for LVH, may be normal variant ( R in aVL , Mukesh product ) Poor R wave progression, consider anterior NC vs. lead placement vs. LVH Abnormal ECG When compared with ECG of 18-Apr-2023 19:30, No significant change was found Confirmed by Sabino Frazier ([id number]) on 03/16/2024 10:27:39 PM Referred By: REFERRED SELF Confirmed By: Sabino Frazier
== END 2024-03-14 15:54 | disposition home or self-care (01) ==
LOC: 4W 22:27 → ED 22:27 → 4W 03-14 01:54